=== PATIENT | female | born 1935 | race Native Hawaiian/Other Pacific Islander ===

== ENCOUNTER 2018-06-10 05:46 | Observation (INO) | payer MEDICARE, BC ==
[2015-03-10 08:48] VITALS: BMI 26.0
--- NOTE | 2018-06-10 06:38 | ED PDOC ---
HPI: General Adult Time Seen by Provider: 06/10/18 06:01 Chief Complaint (Nursing): GI Problem Chief Complaint (Provider): GI Problem History Per: Patient History/Exam Limitations: no limitations Onset/Duration Of Symptoms: Days (x 1) Current Symptoms Are (Timing): Still Present Additional Complaint(s): 83 year old female with a history of HTN, arthritis and diverticular disease presents to the ED with bright red blood per rectum that started yesterday. Patient reports that she had three episodes of filling the toilet with bright red blood before midnight and two similar episodes after midnight. During episodes, there is no stool present. Patient denies abdominal pain, rectal pain , nausea, vomiting, fever and chest pain. PMD: Dr. Vishnu Lui Past Medical History Reviewed: Historical Data, Nursing Documentation, Vital Signs Vital Signs: Last Vital Signs Temp 98.2 F 06/10/18 17:00 Pulse 62 06/10/18 21:03 Resp 18 06/10/18 18:44 BP 140/65 06/10/18 21:03 Pulse Ox 96 06/10/18 18:44 - Medical History PMH: CAD, HTN, Mitral Valve Prolapse - Surgical History Surgical History: Cholecystectomy, Coronary Stent - Family History Family History: States: Unknown Family Hx - Home Medications Home Medications: Ambulatory Orders Medication Instructions Recorded Amlodipine Besylate [Norvasc] 5 mg PO DAILY 03/16/15 Paroxetine HCl [Paxil] 20 mg PO DAILY 03/16/15 Allopurinol [Zyloprim] 100 mg PO DAILY 06/10/18 Carvedilol [Coreg] 6.25 mg PO Q12 06/10/18 Cholecalciferol [Vitamin D 1000 IU] 1,000 unit PO DAILY 06/10/18 Isosorbide Mononitrate ER [Imdur 30 mg PO DAILY 06/10/18 ER] Ranitidine HCl [Zantac] 300 mg PO DAILY 06/10/18 - Allergies Allergies/Adverse Reactions: Allergies Allergy/AdvReac Type Severity Reaction Status Date / Time aspirin Allergy ANAPHYLAXIS Verified 06/10/18 06:02 codeine Allergy RASH Verified 06/10/18 06:02 Latex, Natural Rubber Allergy ITCHING Verified 06/10/18 06:02 Sulfa (Sulfonamide Allergy RASH Verified 06/10/18 06:02 Antibiotics) Review of Systems ROS Statement: Except As Marked, All Systems Reviewed And Found Negative Constitutional: Negative for: Fever Cardiovascular: Negative for: Chest Pain Gastrointestinal: Positive for: Hematochezia. Negative for: Nausea, Vomiting, Abdominal Pain, Rectal Pain Physical Exam - Reviewed Nursing Documentation Reviewed: Yes Vital Signs Reviewed: Yes - Physical Exam Appears: Positive for: Non-toxic, No Acute Distress Head Exam: Positive for: ATRAUMATIC, NORMAL INSPECTION, NORMOCEPHALIC Skin: Positive for: Normal Color, Warm, Dry Eye Exam: Positive for: EOMI, Normal appearance, PERRL Neck: Positive for: Normal, Painless ROM, Supple Cardiovascular/Chest: Positive for: Regular Rate, Rhythm. Negative for: Murmur Respiratory: Positive for: Normal Breath Sounds. Negative for: Respiratory Distress Gastrointestinal/Abdominal: Positive for: Normal Exam, Soft. Negative for: Tenderness Extremity: Positive for: Normal ROM. Negative for: Deformity Neurologic/Psych: Positive for: Alert, Oriented (x 3). Negative for: Motor/ Sensory Deficits - Laboratory Results Result Diagrams: 06/10/18 20:40 06/10/18 07:20 - ECG O2 Sat by Pulse Oximetry: 96 (RA) Pulse Ox Interpretation: Normal Medical Decision Making Medical Decision Makin:10 Impression: 83 year old [place] female with bright red blood per rectal Initial Plan: --Labs --EKG --Ct Abd and Pelvis ---- Scribe Attestation: Documented by Nikia Doty, acting as a scribe for Christopher Hernandez MD Provider Scribe Attestation: All medical record entries made by the Scribe were at my direction and personally dictated by me. I have reviewed the chart and agree that the record accurately reflects my personal performance of the history, physical exam, medical decision making, and the department course for this patient. I have also personally directed, reviewed, and agree with the discharge instructions and disposition. Disposition - Clinical Impression Clinical Impression: Hematochezia - Patient ED Disposition Is Patient to be Admitted: Transfer of Care - Disposition Disposition: Transfer of Care Disposition Time: 07:00 Condition: FAIR Patient Signed Over To: Uriel Wagner (pending CT, labs and reeval)
--- NOTE | 2018-06-10 07:22 | ED PDOC ---
- Laboratory Results Result Diagrams: 06/10/18 07:20 06/10/18 07:20 - ECG O2 Sat by Pulse Oximetry: 96 (RA) Pulse Ox Interpretation: Normal Medical Decision Making Medical Decision Making: Patient signed over to provider at [address] Hernandez pending CT, labs and reeval. -------- Documented by Rima Melendez acting as a scribe for Uriel Wganer MD. All medical record entries made by the Scribe were at my direction and personally dictated by me. I have reviewed the chart and agree that the record accurately reflects my personal performance of the history, physical exam, medical decision making, and the department course for this patient. I have also personally directed, reviewed, and agree with the discharge instructions and disposition. Disposition - Clinical Impression Clinical Impression: Diverticulitis - POA Present On Arrival: None - Disposition Disposition: Hospitalized as Observation Patient Disposition Time: 11:28 Condition: FAIR Additional Instructions: ALFONSO NAVA, thank you for letting us take care of you today. Your provider was Christopher Hernandez MD and you were treated for BLOOD IN URINE. The emergency medical care you received today was directed at your acute symptoms. If you were prescribed any medication, please fill it and take as directed. It may take several days for your symptoms to resolve. Return to the Emergency Department if your symptoms worsen, do not improve, or if you have any other problems. Please contact your doctor or call one of the physicians/clinics you have been referred to that are listed on the Patient Visit Information form that is included in your discharge packet. Bring any paperwork you were given at discharge with you along with any medications you are taking to your follow up visit. Our treatment cannot replace ongoing medical care by a primary care provider outside of the emergency department. Thank you for allowing the [facility] team to be part of your care today. If you had an X-Ray or CT scan: A Radiologist will review the ED reading if any change in treatment is needed we will contact you. If you had a blood, urine, or wound culture: It will take several days for the results, if any change in treatment is needed we will contact you. If you had an STI test: It will take 48 hours for the results. Please call after 1 week if you have not heard back. Forms: [facility] ([place])
[2018-06-10 07:42] LABS: BASO # 0.1 K/uL (0.0-0.2); BASO % 0.9 % (0.0-2.0); EOS # 0.2 K/uL (0.0-0.7); HEMOGLOBIN 11.3 g/dL (12.0-16.0); LYMPH # 1.4 K/uL (1.0-4.3); LYMPH % 18.6 % (20.0-40.0); MEAN CORPUSCULAR HEMOGLOBIN 31.7 pg (27.0-31.0); MEAN CORPUSCULAR HGB CONC 32.7 g/dL (33.0-37.0); MEAN PLATELET VOLUME 8.1 fl (7.2-11.7); MONO # 0.7 K/uL (0.0-0.8); MONO % 9.6 % (0.0-10.0); NEUT # 5.3 K/uL (1.8-7.0); NEUT % 68.9 % (50.0-75.0); RBC 3.56 Mil/uL (3.80-5.20); RED CELL DISTRIBUTION WIDTH 14.9 % (11.5-14.5); WHITE BLOOD COUNT 7.6 K/uL (4.8-10.8)
[2018-06-10 07:55] LABS: GFR AFRICAN-AMERICAN 47; GFR NON-AFRICAN AMERICAN 39; LIPASE 246 U/L (23-300)
[2018-06-10 07:56] LABS: ALB/GLOB RATIO 0.6 (1.0-2.1); ALT/SGPT < 6 U/L (9-52); AST/SGOT 45 U/L (14-36); BLOOD UREA NITROGEN 22 mg/dl (7-17)
[2018-06-10 08:12] LABS: INR 1.2 (0.9-1.2); PARTIAL THROMBOPLASTIN TIME 34.3 Seconds (25.6-37.1); PROTHROMBIN TIME 13.7 Seconds (9.8-13.1)
--- NOTE | 2018-06-10 11:02 | CT ---
Date of service: 06/10/2018 PROCEDURE: CT Abdomen and Pelvis without intravenous contrast HISTORY: [facility] COMPARISON: Abdomen and pelvis CT with contrast 09/01/2014. TECHNIQUE: Helical CT of the abdomen and pelvis was performed without oral or intravenous contrast as per referring physician request. Contrast dose: None Radiation dose: Total exam DLP = 496.05 mGy-cm. This CT exam was performed using one or more of the following dose reduction techniques: Automated exposure control, adjustment of the mA and/or kV according to patient size, and/or use of iterative reconstruction technique. FINDINGS: LOWER THORAX: Stable tiny left basilar Bochdalek's hernia containing only mesenteric fat. Limited linear atelectasis and appear atelectasis seen in both bases once again. LIVER: Tiny hepatic lucency again seen the lateral left lobe with remainder the liver homogeneous in its unenhanced appearance. GALLBLADDER AND BILE DUCTS: Cholecystectomy reiterated. PANCREAS: Mildly atrophic nonfocal pancreas reiterated. SPLEEN: Unremarkable. ADRENALS: Unremarkable. No mass. KIDNEYS AND URETERS: No radiodense urolithiasis, obstructive uropathy or perinephric reaction is appreciated bilaterally. Apparent right renal cyst is increased in size at the upper midpole anteriorly, now measuring 4.9 x 4.3 cm compare to 4.0 cm previously. Lower pole left renal lucency not well identified on this noncontrast examination. Nonspecific punctate loop lucency is seen at the left upper pole renal cortex and also the cortex at the lower pole in 2 areas, nonspecific. VASCULATURE: Unremarkable. No aortic aneurysm. BOWEL: Stomach is completely collapsed and is poorly evaluated as result. Moderate fecal loading seen at the ascending colon. Left colonic diverticulosis is appreciated concentrated at the sigmoid segment. Pericolic reactive changes again at the mid descending segment extending to be more prominent at the distal descending/ proximal sigmoid region. Given associated diverticular changes, pattern likely reflects diverticulitis. To exclude underlying lesion, follow-up colonoscopy is recommended following therapy. No abscess or free air appreciable grossly. APPENDIX: The cecum and appendix are relatively high at the right anil abdomen. No appendicitis identified. PERITONEUM: Unremarkable. No free fluid. No free air. LYMPH NODES: Unremarkable. No enlarged lymph nodes. BLADDER: Unremarkable. REPRODUCTIVE: Prior hysterectomy. BONES: Old healed fracture inferior right pubic ramus. OTHER FINDINGS: None. IMPRESSION: 1. Diverticulitis affects the mid to distal descending as well as proximal sigmoid: Without abscess or free intrarenal gas or other sign of mural perforation. Underlying lesion not excluded follow-up colonoscopy advised following therapy. 2. No obstructive uropathy bilaterally. Right renal cyst increased in size per left renal cyst less well appreciated. A few cortical radiodensities are seen at the upper and lower pole left kidney, nonspecific. 3. Prior cholecystectomy and hysterectomy reiterated.
[2018-06-10 11:21] LABS: SQUAMOUS EPITHIAL < 1 /hpf (0-5); URINE BACTERIA RARE (<OCC); URINE BILIRUBIN NEGATIVE (NEGATIVE); URINE BLOOD SMALL (NEGATIVE); URINE CLARITY CLEAR (Clear); URINE COLOR STRAW (YELLOW); URINE GLUCOSE (UA) NEG (Normal); URINE LEUKOCYTE ESTERASE NEG Leu/uL (Negative); URINE PROTEIN NEGATIVE (NEGATIVE); URINE UROBILINOGEN 0.2-1.0 mg/dL (0.2-1.0)
[2018-06-10] MEDS ORDERED: Ciprofloxacin 400mg/200ml D5W 400 MG/200 ML BAG IVPB STA (11:25)
[2018-06-10] MEDS ORDERED: metroNIDAZOLE 500mg/100ml NS 1,000 MG in Premixed IV 1 EA IVPB SCH (11:30)
--- NOTE | 2018-06-10 11:32 | CP.PCM.HP ---
<Tonya Latif - Last Filed: 06/10/18 17:22> History of Present Illness - History of Present Illness History of Present Illness: HPI: 83 YO female with PMHx of HTN, GERD, IBS and diverticulosis presents to [facility] ED for bleeding per rectum. Pt states that her symptoms started suddenly yesterday and has worsened since onset. Pt states that she feels the urge to go to the bathroom and only bright blood comes out, there is no stool only blood in the bowl. Had a total of 3-4x episode before pt came to the ED. First time this has ever happened to the patient. Denies chest pain, dyspnea, dizziness, fatigue, n/v. Per Pt last endoscopy was in 2008 and Colonoscopy was 2014 was normal per pt PMD: Dr. Lui PMHx: HTN, GERD, IBS and diverticulosis SurgHx: thyroidectomy, total hysterextomy, lumpectomy (breast), arthoscopy (R knee), cholesectomy Allergies: asa, codeine, latex, sulfa Present on Admission - Present on Admission Any Indicators Present on Admission: No Review of Systems - Constitutional Constitutional: absent: Fever, Headache - Cardiovascular Cardiovascular: absent: Chest Pain, Dyspnea, Palpitations - Respiratory Respiratory: absent: Cough, Dyspnea - Gastrointestinal Gastrointestinal: Melena. absent: Abdominal Pain, Vomiting - Genitourinary Genitourinary: absent: Dysuria, Hematuria Past Patient History - Past Medical History & Family History Past Medical History?: Yes - Past Social History Smoking Status: Current Some Days Smoker - CARDIAC Hx Hypertension: Yes Hx Mitral Valve Prolapse: Yes - HEMATOLOGICAL/ONCOLOGICAL Hx Blood Disorders: Yes Hx Cancer: Yes (LEFT LUMPECTOMY) - MUSCULOSKELETAL/RHEUMATOLOGICAL Hx Musculoskeletal Disorders: Yes (right knee pain) Other/Comment: PELVIC FRACTURE - GASTROINTESTINAL Hx Gastrointestinal Disorders: Yes Hx Gastroesophageal Reflux: Yes Hx Irritable Bowel: Yes - PSYCHIATRIC Hx Substance Use: No - SURGICAL HISTORY Hx Cholecystectomy: Yes Hx Coronary Stent: Yes - ANESTHESIA Hx Anesthesia: Yes Hx Anesthesia Reactions: No Meds Allergies/Adverse Reactions: Allergies Allergy/AdvReac Type Severity Reaction Status Date / Time aspirin Allergy ANAPHYLAXIS Verified 06/10/18 06:02 codeine Allergy RASH Verified 06/10/18 06:02 Latex, Natural Rubber Allergy ITCHING Verified 06/10/18 06:02 Sulfa (Sulfonamide Allergy RASH Verified 06/10/18 06:02 Antibiotics) Physical Exam - Constitutional Appears: No Acute Distress - Head Exam Head Exam: NORMAL INSPECTION - Eye Exam Eye Exam: EOMI, Normal appearance - ENT Exam ENT Exam: Mucous Membranes Moist - Respiratory Exam Respiratory Exam: Clear to Auscultation Bilateral. absent: Wheezes - Cardiovascular Exam Cardiovascular Exam: REGULAR RHYTHM, +S1, +S2 - GI/Abdominal Exam GI & Abdominal Exam: Normal Bowel Sounds, Soft. absent: Tenderness - Extremities Exam Extremities exam: Positive for: normal inspection - Neurological Exam Neurological exam: Alert, Oriented x3 - Skin Skin Exam: Normal Color Results - Vital Signs Recent Vital Signs: Last Vital Signs Temp 98.6 F 06/10/18 06:02 Pulse 60 06/10/18 06:02 Resp 16 06/10/18 06:02 BP 153/73 H 06/10/18 06:02 Pulse Ox 96 06/10/18 11:28 - Labs Result Diagrams: 06/10/18 07:20 06/10/18 07:20 Labs: Laboratory Results - last 24 hr 06/10/18 06/10/18 06/10/18 06:27 07:20 07:20 WBC 7.6 RBC 3.56 L Hgb 11.3 L Hct 34.5 MCV 97.0 MCH 31.7 H MCHC 32.7 L RDW 14.9 H Plt Count 204 MPV 8.1 Neut % (Auto) 68.9 Lymph % (Auto) 18.6 L [place] % (Auto) 9.6 Eos % (Auto) 2.0 Baso % (Auto) 0.9 Neut # (Auto) 5.3 Lymph # (Auto) 1.4 [place] # (Auto) 0.7 Eos # (Auto) 0.2 Baso # (Auto) 0.1 PT INR APTT Sodium 137 Potassium 4.8 Chloride 103 Carbon Dioxide 21 L Anion Gap 18 BUN 22 H Creatinine 1.3 H Est GFR ( Amer) 47 Est GFR (Non-Af Amer) 39 Random Glucose 84 Calcium 10.0 Total Bilirubin 1.1 AST 45 H ALT < 6 L D Alkaline Phosphatase 59 Total Protein 10.4 H Albumin 4.0 Globulin 6.4 H Albumin/Globulin Ratio 0.6 L Lipase 246 Urine Color Urine Clarity Urine pH Ur Specific [place] Urine Protein Urine Glucose (UA) Urine Ketones Urine Blood Urine Nitrate Urine Bilirubin Urine Urobilinogen Ur Leukocyte Esterase Urine RBC (Auto) Urine Microscopic WBC Ur Squamous Epith Cells Urine Bacteria Blood Type B POSITIVE Antibody Screen Negative BBK History Checked No verified bt 06/10/18 06/10/18 07:20 11:05 WBC RBC Hgb Hct MCV MCH MCHC RDW Plt Count MPV Neut % (Auto) Lymph % (Auto) [place] % (Auto) Eos % (Auto) Baso % (Auto) Neut # (Auto) Lymph # (Auto) [place] # (Auto) Eos # (Auto) Baso # (Auto) PT 13.7 H INR 1.2 APTT 34.3 Sodium Potassium Chloride Carbon Dioxide Anion Gap BUN Creatinine Est GFR ( Amer) Est GFR (Non-Af Amer) Random Glucose Calcium Total Bilirubin AST ALT Alkaline Phosphatase Total Protein Albumin Globulin Albumin/Globulin Ratio Lipase Urine Color Straw Urine Clarity Clear Urine pH 6.0 Ur Specific [place] 1.008 Urine Protein Negative Urine Glucose (UA) Neg Urine Ketones Negative Urine Blood Small Urine Nitrate Negative Urine Bilirubin Negative Urine Urobilinogen 0.2-1.0 Ur Leukocyte Esterase Neg Urine RBC (Auto) 1 Urine Microscopic WBC 1 Ur Squamous Epith Cells < 1 Urine Bacteria Rare Blood Type Antibody Screen BBK History Checked Assessment & Plan (1) HTN (hypertension) Status: Chronic (2) GERD (gastroesophageal reflux disease) Status: Chronic (3) Diverticulitis Status: Acute (4) IBS (irritable bowel syndrome) Status: Chronic - Assessment and Plan (Free Text) Assessment: Assessment/Plan: 83 YO female with PMHx of HTN, GERD, IBS and diverticulosis is admitted for acute diverticulitis. -VS stable -labs reviewed -GI consulted -NPO, with IVF -PPI and H2 galindo on board -CT abd and pel sig for diverticulitis mid-distal descending as well as proximal sigmoid> no obstructive uropathy. -acute bleeding per rectum likely 2/2 diverticulitis -continue abx -Plan as ordered Pt seen and examined with Dr. Lui <Vishnu Lui - Last Filed: 06/11/18 06:49> Results - Vital Signs Recent Vital Signs: Last Vital Signs Temp 98.5 F 06/11/18 00:00 Pulse 56 L 06/11/18 00:00 Resp 20 06/11/18 00:00 BP 116/61 06/11/18 00:00 Pulse Ox 94 L 06/11/18 00:00 - Labs Result Diagrams: 06/10/18 20:40 06/10/18 07:20 Labs: Laboratory Results - last 24 hr 06/10/18 06/10/18 06/10/18 06:27 07:20 07:20 WBC 7.6 RBC 3.56 L Hgb 11.3 L Hct 34.5 MCV 97.0 MCH 31.7 H MCHC 32.7 L RDW 14.9 H Plt Count 204 MPV 8.1 Neut % (Auto) 68.9 Lymph % (Auto) 18.6 L [place] % (Auto) 9.6 Eos % (Auto) 2.0 Baso % (Auto) 0.9 Neut # (Auto) 5.3 Lymph # (Auto) 1.4 [place] # (Auto) 0.7 Eos # (Auto) 0.2 Baso # (Auto) 0.1 PT INR APTT Sodium 137 Potassium 4.8 Chloride 103 Carbon Dioxide 21 L Anion Gap 18 BUN 22 H Creatinine 1.3 H Est GFR ( Amer) 47 Est GFR (Non-Af Amer) 39 Random Glucose 84 Calcium 10.0 Total Bilirubin 1.1 AST 45 H ALT < 6 L D Alkaline Phosphatase 59 Total Protein 10.4 H Albumin 4.0 Globulin 6.4 H Albumin/Globulin Ratio 0.6 L Lipase 246 Urine Color Urine Clarity Urine pH Ur Specific [place] Urine Protein Urine Glucose (UA) Urine Ketones Urine Blood Urine Nitrate Urine Bilirubin Urine Urobilinogen Ur Leukocyte Esterase Urine RBC (Auto) Urine Microscopic WBC Ur Squamous Epith Cells Urine Bacteria Blood Type B POSITIVE Blood Type Confirm Antibody Screen Negative BBK History Checked No verified bt 06/10/18 06/10/18 06/10/18 07:20 11:05 19:00 WBC RBC Hgb Hct MCV MCH MCHC RDW Plt Count MPV Neut % (Auto) Lymph % (Auto) [place] % (Auto) Eos % (Auto) Baso % (Auto) Neut # (Auto) Lymph # (Auto) [place] # (Auto) Eos # (Auto) Baso # (Auto) PT 13.7 H INR 1.2 APTT 34.3 Sodium Potassium Chloride Carbon Dioxide Anion Gap BUN Creatinine Est GFR ( Amer) Est GFR (Non-Af Amer) Random Glucose Calcium Total Bilirubin AST ALT Alkaline Phosphatase Total Protein Albumin Globulin Albumin/Globulin Ratio Lipase Urine Color Straw Urine Clarity Clear Urine pH 6.0 Ur Specific [place] 1.008 Urine Protein Negative Urine Glucose (UA) Neg Urine Ketones Negative Urine Blood Small Urine Nitrate Negative Urine Bilirubin Negative Urine Urobilinogen 0.2-1.0 Ur Leukocyte Esterase Neg Urine RBC (Auto) 1 Urine Microscopic WBC 1 Ur Squamous Epith Cells < 1 Urine Bacteria Rare Blood Type Blood Type Confirm B POSITIVE Antibody Screen BBK History Checked 06/10/18 20:40 WBC 8.8 RBC 3.63 L Hgb 11.8 L Hct 35.3 MCV 97.3 MCH 32.4 H MCHC 33.3 RDW 14.8 H Plt Count 195 MPV Neut % (Auto) Lymph % (Auto) [place] % (Auto) Eos % (Auto) Baso % (Auto) Neut # (Auto) Lymph # (Auto) [place] # (Auto) Eos # (Auto) Baso # (Auto) PT INR APTT Sodium Potassium Chloride Carbon Dioxide Anion Gap BUN Creatinine Est GFR ( Amer) Est GFR (Non-Af Amer) Random Glucose Calcium Total Bilirubin AST ALT Alkaline Phosphatase Total Protein Albumin Globulin Albumin/Globulin Ratio Lipase Urine Color Urine Clarity Urine pH Ur Specific [place] Urine Protein Urine Glucose (UA) Urine Ketones Urine Blood Urine Nitrate Urine Bilirubin Urine Urobilinogen Ur Leukocyte Esterase Urine RBC (Auto) Urine Microscopic WBC Ur Squamous Epith Cells Urine Bacteria Blood Type Blood Type Confirm Antibody Screen BBK History Checked Assessment & Plan - Assessment and Plan (Free Text) Plan: I was present during evaluation and discussed with Dr Latif re plans of care and tx. Vishnu Lui M.D.
[2018-06-10] MEDS ORDERED: Ciprofloxacin 400mg/200ml D5W 400 MG/200 ML BAG IVPB ONE (11:51)
[2018-06-10] MEDS: Sodium Chloride 0.9% 1,000 ML IV SCH ×2 (11:54→22:00)
--- NOTE | 2018-06-10 12:28 | CARD ---
APPROVED REPORT Date of service: 06/10/2018 EKG Measurement Heart [id number] <Conclusion> Sinus bradycardia with sinus arrhythmia with 1st degree AV block Voltage criteria for left ventricular hypertrophy Abnormal ECG
--- NOTE | 2018-06-10 14:01 | CP.PCM.CON ---
<Lloyd Carvajal - Last Filed: 06/10/18 14:02> History of Present Illness - History of Present Illness History of Present Illness: PGY5 GI Initial Consult Fernanda Velásquez is a 83F w/ hx of diverticulosis, HTN, HL, CAD who presents to the Er with complaints of rectal bleeding. Pt states that the onset was 1 days prior. She notes that it was bright red blood, denies any blood clots. She notes that initially it was mixed with stool then without. Denies any melena. She also notes LLQ abd pain. She notes that it was sudden and nonradiating. Denies any fever, chills or diaphorsis. She denies any further episodes of rectal bleeding since admission. Denies any recent travel and abx use. Previous had colonoscopy in 2011 and EGD in 2008. She notes previous diagnosis of diverticulosis and IBS. PMHx: HTN, GERD, IBS and diverticulosis SurgHx: thyroidectomy, total hysterextomy, lumpectomy (breast), arthoscopy (R knee), cholesectomy Family hx: reviewed; niece possibly has colon cancer, but denies any other GI malignancies ROS: 12 point ROS conducted, neg other than above Past Patient History - Past Medical History & Family History Past Medical History?: Yes - Past Social History Smoking Status: Current Some Days Smoker - CARDIAC Hx Hypertension: Yes Hx Mitral Valve Prolapse: Yes - HEMATOLOGICAL/ONCOLOGICAL Hx Blood Disorders: Yes Hx Cancer: Yes (LEFT LUMPECTOMY) - MUSCULOSKELETAL/RHEUMATOLOGICAL Hx Musculoskeletal Disorders: Yes (right knee pain) Other/Comment: PELVIC FRACTURE - GASTROINTESTINAL Hx Gastrointestinal Disorders: Yes Hx Gastroesophageal Reflux: Yes Hx Irritable Bowel: Yes - PSYCHIATRIC Hx Substance Use: No - SURGICAL HISTORY Hx Cholecystectomy: Yes Hx Coronary Stent: Yes - ANESTHESIA Hx Anesthesia: Yes Hx Anesthesia Reactions: No Meds Allergies/Adverse Reactions: Allergies Allergy/AdvReac Type Severity Reaction Status Date / Time aspirin Allergy ANAPHYLAXIS Verified 06/10/18 06:02 codeine Allergy RASH Verified 06/10/18 06:02 Latex, Natural Rubber Allergy ITCHING Verified 06/10/18 06:02 Sulfa (Sulfonamide Allergy RASH Verified 06/10/18 06:02 Antibiotics) - Medications Medications: Current Medications Acetaminophen (Tylenol 325mg Tab) 650 mg PO Q6 PRN PRN Reason: Pain, Mild (1-3) Allopurinol (Zyloprim) 100 mg PO DAILY [facility] Amlodipine Besylate (Norvasc) 5 mg PO DAILY [facility] Carvedilol (Coreg) 6.25 mg PO Q12 [facility] Cholecalciferol (Vitamin D) 1,000 intlu PO DAILY [facility] Metronidazole 1,000 mg/ (Miscellaneous) 200 mls @ 200 mls/hr IVPB ONCE [facility] PRN Reason: Protocol Sodium Chloride (Sodium Chloride 0.9%) 1,000 mls @ 100 mls/hr IV .Q10H [facility] Last Admin: 06/10/18 11:54 Dose: 100 mls/hr Ciprofloxacin (Cipro 400mg/200ml Dsw) 400 mg in 200 mls @ 200 mls/hr IVPB Q12 [facility] PRN Reason: Protocol Isosorbide Mononitrate (Imdur Er) 30 mg PO DAILY [facility] Ondansetron HCl (Zofran Inj) 4 mg IVP Q6 PRN PRN Reason: Nausea/Vomiting Pantoprazole Sodium (Protonix Inj) 40 mg IVP DAILY [facility] Paroxetine HCl (Paxil) 20 mg PO DAILY [facility] Physical Exam - Constitutional Appears: Well, No Acute Distress - Head Exam Head Exam: ATRAUMATIC, NORMOCEPHALIC - Eye Exam Eye Exam: Normal appearance Pupil Exam: NORMAL ACCOMODATION - ENT Exam ENT Exam: Mucous Membranes Moist, Normal Exam - Neck Exam Neck exam: Positive for: Normal Inspection - Respiratory Exam Respiratory Exam: Clear to Auscultation Bilateral, NORMAL BREATHING PATTERN. absent: Rales, Rhonchi, Wheezes, Respiratory Distress - Cardiovascular Exam Cardiovascular Exam: REGULAR RHYTHM, +S1, +S2 - GI/Abdominal Exam GI & Abdominal Exam: Normal Bowel Sounds, Soft, Tenderness (LLQ). absent: Diminished Bowel Sounds, Distended, Firm, Guarding, Organomegaly, Rebound, Rigid - Rectal Exam Rectal Exam: absent: Black Stool, Bloody Stool, Hemorrhoids - Extremities Exam Extremities exam: Negative for: joint swelling, pedal edema - Neurological Exam Neurological exam: Alert, Oriented x3 - Psychiatric Exam Psychiatric exam: Normal Affect, Normal Mood - Skin Skin Exam: Cyanosis, Dry, Intact, Normal Color Results - Vital Signs Recent Vital Signs: Last Vital Signs Temp 98.8 F 06/10/18 11:48 Pulse 55 L 06/10/18 11:48 Resp 20 06/10/18 11:48 BP 137/63 06/10/18 11:48 Pulse Ox 96 06/10/18 11:48 - Labs Result Diagrams: 06/10/18 07:20 06/10/18 07:20 Labs: Laboratory Results - last 24 hr 06/10/18 06/10/18 06/10/18 06:27 07:20 07:20 WBC 7.6 RBC 3.56 L Hgb 11.3 L Hct 34.5 MCV 97.0 MCH 31.7 H MCHC 32.7 L RDW 14.9 H Plt Count 204 MPV 8.1 Neut % (Auto) 68.9 Lymph % (Auto) 18.6 L [place] % (Auto) 9.6 Eos % (Auto) 2.0 Baso % (Auto) 0.9 Neut # (Auto) 5.3 Lymph # (Auto) 1.4 [place] # (Auto) 0.7 Eos # (Auto) 0.2 Baso # (Auto) 0.1 PT INR APTT Sodium 137 Potassium 4.8 Chloride 103 Carbon Dioxide 21 L Anion Gap 18 BUN 22 H Creatinine 1.3 H Est GFR ( Amer) 47 Est GFR (Non-Af Amer) 39 Random Glucose 84 Calcium 10.0 Total Bilirubin 1.1 AST 45 H ALT < 6 L D Alkaline Phosphatase 59 Total Protein 10.4 H Albumin 4.0 Globulin 6.4 H Albumin/Globulin Ratio 0.6 L Lipase 246 Urine Color Urine Clarity Urine pH Ur Specific [place] Urine Protein Urine Glucose (UA) Urine Ketones Urine Blood Urine Nitrate Urine Bilirubin Urine Urobilinogen Ur Leukocyte Esterase Urine RBC (Auto) Urine Microscopic WBC Ur Squamous Epith Cells Urine Bacteria Blood Type B POSITIVE Antibody Screen Negative BBK History Checked No verified bt 06/10/18 06/10/18 07:20 11:05 WBC RBC Hgb Hct MCV MCH MCHC RDW Plt Count MPV Neut % (Auto) Lymph % (Auto) [place] % (Auto) Eos % (Auto) Baso % (Auto) Neut # (Auto) Lymph # (Auto) [place] # (Auto) Eos # (Auto) Baso # (Auto) PT 13.7 H INR 1.2 APTT 34.3 Sodium Potassium Chloride Carbon Dioxide Anion Gap BUN Creatinine Est GFR ( Amer) Est GFR (Non-Af Amer) Random Glucose Calcium Total Bilirubin AST ALT Alkaline Phosphatase Total Protein Albumin Globulin Albumin/Globulin Ratio Lipase Urine Color Straw Urine Clarity Clear Urine pH 6.0 Ur Specific [place] 1.008 Urine Protein Negative Urine Glucose (UA) Neg Urine Ketones Negative Urine Blood Small Urine Nitrate Negative Urine Bilirubin Negative Urine Urobilinogen 0.2-1.0 Ur Leukocyte Esterase Neg Urine RBC (Auto) 1 Urine Microscopic WBC 1 Ur Squamous Epith Cells < 1 Urine Bacteria Rare Blood Type Antibody Screen BBK History Checked Assessment & Plan - Assessment and Plan (Free Text) Assessment: Fernanda Velásquez is a 83F w/ hx of diverticulosis, CAD, HTN. IBS. HL who presents with rectal bleeding and abd pain Rectal bleeding, etiology unknown; likely diverticular; r/o malignancy or AVM or ischemic vs IBD Diverticulitis hx of divertivular disease IBS Plan: -Reviewed by Dr. Knight; CT Revealed diverticular disease and active diverticulitis in the sigmoid -h/h stable -repeat hgb at 2100 -transfuse to keep hgb >9 -maintain IV access x2 -type and screen -okay for clears -no indication for colonoscopy at this time 2/[address], increase chance of perforation -recommend CTA is pt rebleeds -likely need oupt colonoscopy in 2 months -rest of care as per primary team D/w Dr. Knight. <Ryley Knight - Last Filed: 06/11/18 10:28> Meds - Medications Medications: Current Medications Acetaminophen (Tylenol 325mg Tab) 650 mg PO Q6 PRN PRN Reason: Pain, Mild (1-3) Allopurinol (Zyloprim) 100 mg PO DAILY [facility] Last Admin: 06/11/18 08:35 Dose: 100 mg Amlodipine Besylate (Norvasc) 5 mg PO DAILY [facility] Last Admin: 06/11/18 08:34 Dose: 5 mg Carvedilol (Coreg) 6.25 mg PO Q12 [facility] Last Admin: 06/11/18 08:34 Dose: 6.25 mg Cholecalciferol (Vitamin D) 1,000 intlu PO DAILY [facility] Last Admin: 06/11/18 08:35 Dose: 1,000 intlu Metronidazole 1,000 mg/ (Miscellaneous) 200 mls @ 200 mls/hr IVPB ONCE [facility] PRN Reason: Protocol Sodium Chloride (Sodium Chloride 0.9%) 1,000 mls @ 100 mls/hr IV .Q10H [facility] Last Admin: 06/11/18 08:38 Dose: 100 mls/hr Ciprofloxacin (Cipro 400mg/200ml Dsw) 400 mg in 200 mls @ 200 mls/hr IVPB Q12 [facility] PRN Reason: Protocol Last Admin: 06/11/18 08:34 Dose: 200 mls/hr Metronidazole (Flagyl 500mg/100ml Ns) 100 mls @ 100 mls/hr IVPB Q8 [facility] PRN Reason: Protocol Isosorbide Mononitrate (Imdur Er) 30 mg PO DAILY [facility] Last Admin: 06/11/18 08:34 Dose: 30 mg Ondansetron HCl (Zofran Inj) 4 mg IVP Q6 PRN PRN Reason: Nausea/Vomiting Pantoprazole Sodium (Protonix Inj) 40 mg IVP DAILY [facility] Last Admin: 06/11/18 08:35 Dose: 40 mg Paroxetine HCl (Paxil) 20 mg PO DAILY [facility] Last Admin: 06/11/18 08:35 Dose: 20 mg Results - Vital Signs Recent Vital Signs: Last Vital Signs Temp 97.8 F 06/11/18 08:30 Pulse 51 L 06/11/18 08:30 Resp 20 06/11/18 08:30 BP 137/67 06/11/18 08:30 Pulse Ox 93 L 06/11/18 08:30 - Labs Result Diagrams: 06/11/18 05:30 06/11/18 05:30 Labs: Laboratory Results - last 24 hr 06/10/18 06/10/18 06/10/18 11:05 19:00 20:40 WBC 8.8 RBC 3.63 L Hgb 11.8 L Hct 35.3 MCV 97.3 MCH 32.4 H MCHC 33.3 RDW 14.8 H Plt Count 195 MPV Neut % (Auto) Lymph % (Auto) [place] % (Auto) Eos % (Auto) Baso % (Auto) Neut # (Auto) Lymph # (Auto) [place] # (Auto) Eos # (Auto) Baso # (Auto) Sodium Potassium Chloride Carbon Dioxide Anion Gap BUN Creatinine Est GFR ( Amer) Est GFR (Non-Af Amer) Random Glucose Calcium Urine Color Straw Urine Clarity Clear Urine pH 6.0 Ur Specific [place] 1.008 Urine Protein Negative Urine Glucose (UA) Neg Urine Ketones Negative Urine Blood Small Urine Nitrate Negative Urine Bilirubin Negative Urine Urobilinogen 0.2-1.0 Ur Leukocyte Esterase Neg Urine RBC (Auto) 1 Urine Microscopic WBC 1 Ur Squamous Epith Cells < 1 Urine Bacteria Rare Blood Type Confirm B POSITIVE 06/11/18 06/11/18 05:30 05:30 WBC 9.6 RBC 3.51 L Hgb 11.5 L Hct 34.2 MCV 97.4 MCH 32.8 H MCHC 33.6 RDW 14.6 H Plt Count 181 MPV 8.0 Neut % (Auto) 70.4 Lymph % (Auto) 15.9 L [place] % (Auto) 11.0 H Eos % (Auto) 2.1 Baso % (Auto) 0.6 Neut # (Auto) 6.7 Lymph # (Auto) 1.5 [place] # (Auto) 1.1 H Eos # (Auto) 0.2 Baso # (Auto) 0.1 Sodium 139 Potassium 4.1 Chloride 106 Carbon Dioxide 20 L Anion Gap 17 BUN 15 Creatinine 1.2 Est GFR ( Amer) 52 Est GFR (Non-Af Amer) 43 Random Glucose 89 Calcium 9.3 Urine Color Urine Clarity Urine pH Ur Specific [place] Urine Protein Urine Glucose (UA) Urine Ketones Urine Blood Urine Nitrate Urine Bilirubin Urine Urobilinogen Ur Leukocyte Esterase Urine RBC (Auto) Urine Microscopic WBC Ur Squamous Epith Cells Urine Bacteria Blood Type Confirm Attending/Attestation - Attestation I have personally seen and examined this patient.: Yes I have fully participated in the care of the patient.: Yes I have reviewed all pertinent clinical information: Yes Notes (Text): 06/11/18 10:24 Late entry- This is a 83 yr old F w/ hx of diverticulosis, CAD, HTN, IBS, HL who presents with rectal bleeding and abdominal pain with cramps. She was seen in ER last evening with son at the bedside. No fever or diarrhea. She had colonosocpy in 2016 that showed diverticular disease. Her CT imaging reviewed and showed diverticulitis on left side. On physical exam she was tender to deep palpation. She did not have any blood on rectal exam and had brown stool. No guarding or rigidity present. Likely diverticulitis which is acute. Will treat with antibiotics and plan on outpatient colonoscopy in 4-6 weeks. Supportive care. Clear liquid diet as tolerated.
[2018-06-10 20:59] LABS: HEMOGLOBIN 11.8 g/dL (12.0-16.0); MEAN CELL VOLUME 97.3 fl (81.0-99.0); MEAN CORPUSCULAR HEMOGLOBIN 32.4 pg (27.0-31.0); MEAN CORPUSCULAR HGB CONC 33.3 g/dL (33.0-37.0); RBC 3.63 Mil/uL (3.80-5.20); RED CELL DISTRIBUTION WIDTH 14.8 % (11.5-14.5); WHITE BLOOD COUNT 8.8 K/uL (4.8-10.8)
[2018-06-10] MEDS: Ciprofloxacin 400mg/200ml D5W 400 MG/200 ML BAG IVPB SCH (21:04)
[2018-06-11 06:47] LABS: BASO # 0.1 K/uL (0.0-0.2); BASO % 0.6 % (0.0-2.0); EOS # 0.2 K/uL (0.0-0.7); EOS % 2.1 % (0.0-4.0); HEMOGLOBIN 11.5 g/dL (12.0-16.0); LYMPH # 1.5 K/uL (1.0-4.3); LYMPH % 15.9 % (20.0-40.0); MEAN CELL VOLUME 97.4 fl (81.0-99.0); MEAN CORPUSCULAR HEMOGLOBIN 32.8 pg (27.0-31.0); MEAN CORPUSCULAR HGB CONC 33.6 g/dL (33.0-37.0); MONO # 1.1 K/uL (0.0-0.8); NEUT # 6.7 K/uL (1.8-7.0); NEUT % 70.4 % (50.0-75.0); RBC 3.51 Mil/uL (3.80-5.20); RED CELL DISTRIBUTION WIDTH 14.6 % (11.5-14.5); WHITE BLOOD COUNT 9.6 K/uL (4.8-10.8)
[2018-06-11 07:15] LABS: CALCIUM 9.3 mg/dL (8.4-10.2)
[2018-06-11] MEDS: Ciprofloxacin 400mg/200ml D5W 400 MG/200 ML BAG IVPB SCH ×2 (08:34→21:27)
[2018-06-11] MEDS: Cholecalciferol 1,000 INTLU TAB PO SCH (08:35)
[2018-06-11] MEDS: Sodium Chloride 0.9% 1,000 ML IV SCH ×2 (08:38→16:54)
--- NOTE | 2018-06-11 10:33 | CP.PCM.PN ---
Subjective - Date & Time of Evaluation Date of Evaluation: 06/11/18 Time of Evaluation: 11:13 - Subjective Subjective: No acute overnight events. Pt states that she is feeling better this AM. Bleeding has significantly improved since admission. Normal BM this AM. Tolerating liquids, endorsing minimal abdominal discomfort. Denies chest pain, dyspnea, palpations, chills and remains afebrile. Objective - Vital Signs/Intake and Output Vital Signs (last 24 hours): Temp Pulse Resp BP Pulse Ox 97.8 F 51 L 20 137/67 93 L 06/11/18 08:30 06/11/18 08:30 06/11/18 08:30 06/11/18 08:30 06/11/18 08:30 - Medications Medications: Current Medications Acetaminophen (Tylenol 325mg Tab) 650 mg PO Q6 PRN PRN Reason: Pain, Mild (1-3) Allopurinol (Zyloprim) 100 mg PO DAILY [facility] Last Admin: 06/11/18 08:35 Dose: 100 mg Amlodipine Besylate (Norvasc) 5 mg PO DAILY [facility] Last Admin: 06/11/18 08:34 Dose: 5 mg Carvedilol (Coreg) 6.25 mg PO Q12 [facility] Last Admin: 06/11/18 08:34 Dose: 6.25 mg Cholecalciferol (Vitamin D) 1,000 intlu PO DAILY [facility] Last Admin: 06/11/18 08:35 Dose: 1,000 intlu Metronidazole 1,000 mg/ (Miscellaneous) 200 mls @ 200 mls/hr IVPB ONCE [facility] PRN Reason: Protocol Sodium Chloride (Sodium Chloride 0.9%) 1,000 mls @ 100 mls/hr IV .Q10H [facility] Last Admin: 06/11/18 08:38 Dose: 100 mls/hr Ciprofloxacin (Cipro 400mg/200ml Dsw) 400 mg in 200 mls @ 200 mls/hr IVPB Q12 [facility] PRN Reason: Protocol Last Admin: 06/11/18 08:34 Dose: 200 mls/hr Metronidazole (Flagyl 500mg/100ml Ns) 100 mls @ 100 mls/hr IVPB Q8 [facility] PRN Reason: Protocol Isosorbide Mononitrate (Imdur Er) 30 mg PO DAILY [facility] Last Admin: 06/11/18 08:34 Dose: 30 mg Ondansetron HCl (Zofran Inj) 4 mg IVP Q6 PRN PRN Reason: Nausea/Vomiting Pantoprazole Sodium (Protonix Inj) 40 mg IVP DAILY [facility] Last Admin: 06/11/18 08:35 Dose: 40 mg Paroxetine HCl (Paxil) 20 mg PO DAILY [facility] Last Admin: 06/11/18 08:35 Dose: 20 mg - Labs Labs: 06/11/18 05:30 06/11/18 05:30 PT 13.7 Seconds (9.8-13.1) H 06/10/18 07:20 INR 1.2 (0.9-1.2) 06/10/18 07:20 APTT 34.3 Seconds (25.6-37.1) 06/10/18 07:20 - Constitutional Appears: No Acute Distress - Head Exam Head Exam: NORMAL INSPECTION - Eye Exam Eye Exam: EOMI, Normal appearance - ENT Exam ENT Exam: Mucous Membranes Moist - Respiratory Exam Respiratory Exam: Clear to Ausculation Bilateral. absent: Wheezes - Cardiovascular Exam Cardiovascular Exam: REGULAR RHYTHM, +S1, +S2 - GI/Abdominal Exam GI & Abdominal Exam: Soft, Normal Bowel Sounds. absent: Tenderness - Extremities Exam Extremities Exam: Normal Inspection. absent: Calf Tenderness, Pedal Edema - Neurological Exam Neurological Exam: Alert, Awake - Psychiatric Exam Psychiatric exam: Normal Mood Assessment and Plan (1) HTN (hypertension) Status: Chronic (2) GERD (gastroesophageal reflux disease) Status: Chronic (3) Diverticulitis Status: Acute (4) IBS (irritable bowel syndrome) Status: Chronic - Assessment and Plan (Free Text) Assessment: Assessment/Plan: 83 YO female with PMHx of HTN, GERD, IBS and diverticulosis is admitted for acute diverticulitis. -VS stable -labs reviewed; hb stable -GI consulted; will need outpatient colonoscopy in 2 months -will advance to regular diet -PPI and H2 galindo on board -continue abx; metro and cipro -Plan as ordered Pt seen and examined with Dr. Lui
[2018-06-11] MEDS: metroNIDAZOLE 500mg/100ml NS 100 ML IVPB SCH ×2 (10:48→16:03)
--- NOTE | 2018-06-11 11:38 | CP.PCM.PN ---
<Lloyd Carvajal - Last Filed: 06/11/18 11:38> Subjective - Date & Time of Evaluation Date of Evaluation: 06/11/18 Time of Evaluation: 10:00 - Subjective Subjective: PGY5 GI Follow-up Pt seen and examined bedside still has mild abd pain in the periumbilical area Notes having 2 bloody Bm yesterday and, 1 normal BM in the morning Denies any melena, or hematemesis tolerating diet ROS: 12 point ROS conducted, neg other than above Objective - Vital Signs/Intake and Output Vital Signs (last 24 hours): Temp Pulse Resp BP Pulse Ox 97.8 F 51 L 20 137/67 93 L 06/11/18 08:30 06/11/18 08:30 06/11/18 08:30 06/11/18 08:30 06/11/18 08:30 - Medications Medications: Current Medications Acetaminophen (Tylenol 325mg Tab) 650 mg PO Q6 PRN PRN Reason: Pain, Mild (1-3) Allopurinol (Zyloprim) 100 mg PO DAILY [facility] Last Admin: 06/11/18 08:35 Dose: 100 mg Amlodipine Besylate (Norvasc) 5 mg PO DAILY [facility] Last Admin: 06/11/18 08:34 Dose: 5 mg Carvedilol (Coreg) 6.25 mg PO Q12 [facility] Last Admin: 06/11/18 08:34 Dose: 6.25 mg Cholecalciferol (Vitamin D) 1,000 intlu PO DAILY [facility] Last Admin: 06/11/18 08:35 Dose: 1,000 intlu Metronidazole 1,000 mg/ (Miscellaneous) 200 mls @ 200 mls/hr IVPB ONCE [facility] PRN Reason: Protocol Sodium Chloride (Sodium Chloride 0.9%) 1,000 mls @ 100 mls/hr IV .Q10H [facility] Last Admin: 06/11/18 08:38 Dose: 100 mls/hr Ciprofloxacin (Cipro 400mg/200ml Dsw) 400 mg in 200 mls @ 200 mls/hr IVPB Q12 [facility] PRN Reason: Protocol Last Admin: 06/11/18 08:34 Dose: 200 mls/hr Metronidazole (Flagyl 500mg/100ml Ns) 100 mls @ 100 mls/hr IVPB Q8 [facility] PRN Reason: Protocol Last Admin: 06/11/18 10:48 Dose: 100 mls/hr Isosorbide Mononitrate (Imdur Er) 30 mg PO DAILY [facility] Last Admin: 06/11/18 08:34 Dose: 30 mg Lactobacillus Acidophilus (Bacid Acidophilus) 1 cap PO BID [facility] Ondansetron HCl (Zofran Inj) 4 mg IVP Q6 PRN PRN Reason: Nausea/Vomiting Pantoprazole Sodium (Protonix Inj) 40 mg IVP DAILY [facility] Last Admin: 06/11/18 08:35 Dose: 40 mg Paroxetine HCl (Paxil) 20 mg PO DAILY [facility] Last Admin: 06/11/18 08:35 Dose: 20 mg - Labs Labs: 06/11/18 05:30 06/11/18 05:30 PT 13.7 Seconds (9.8-13.1) H 06/10/18 07:20 INR 1.2 (0.9-1.2) 06/10/18 07:20 APTT 34.3 Seconds (25.6-37.1) 06/10/18 07:20 - Constitutional Appears: Well, No Acute Distress - Head Exam Head Exam: ATRAUMATIC - Eye Exam Eye Exam: Normal appearance - ENT Exam ENT Exam: Mucous Membranes Moist, Normal Exam - Respiratory Exam Respiratory Exam: Clear to Ausculation Bilateral, NORMAL BREATHING PATTERN. absent: Rales, Rhonchi, Wheezes, Respiratory Distress - Cardiovascular Exam Cardiovascular Exam: REGULAR RHYTHM, +S1, +S2 - GI/Abdominal Exam GI & Abdominal Exam: Soft, Tenderness (periumbilical), Normal Bowel Sounds. absent: Distended, Firm, Guarding, Rigid, Organomegaly - Extremities Exam Extremities Exam: absent: Joint Swelling, Pedal Edema - Neurological Exam Neurological Exam: Alert, Awake, Oriented x3 - Psychiatric Exam Psychiatric exam: Normal Affect, Normal Mood - Skin Skin Exam: Dry, Intact, Normal Color, Warm Assessment and Plan - Assessment and Plan (Free Text) Assessment: Fernanda Velásquez is a 83F w/ hx of diverticulosis, CAD, HTN. IBS. HL who presents with rectal bleeding and abd pain Rectal bleeding, etiology unknown; likely diverticular; r/o malignancy or AVM or ischemic vs IBD Diverticulitis hx of divertivular disease IBS Plan: -Reviewed by Dr. Knight; CT Revealed diverticular disease and active diverticulitis in the sigmoid -h/h stable overnight -repeat hgb at 2100 -transfuse to keep hgb >9 -advance as tolerated, goal of low residual for at least 2 week and can then transition to fiber diet -no indication for colonoscopy at this time 2/[address], increase chance of perforation -recommend CTA is pt rebleeds, and return to ER -need oupt colonoscopy in 2 months -finish 10 days of outpt abx -rest of care as per primary team D/w Dr. Knight. <Ryley Knight - Last Filed: 06/12/18 11:10> Objective - Vital Signs/Intake and Output Vital Signs (last 24 hours): Temp Pulse Resp BP Pulse Ox 98.2 F 54 L 18 120/61 95 06/12/18 07:56 06/12/18 07:56 06/12/18 07:56 06/12/18 07:56 06/12/18 07:56 - Medications Medications: Current Medications Acetaminophen (Tylenol 325mg Tab) 650 mg PO Q6 PRN PRN Reason: Pain, Mild (1-3) Allopurinol (Zyloprim) 100 mg PO DAILY [facility] Last Admin: 06/12/18 08:29 Dose: 100 mg Amlodipine Besylate (Norvasc) 5 mg PO DAILY [facility] Last Admin: 06/12/18 08:28 Dose: 5 mg Carvedilol (Coreg) 6.25 mg PO Q12 [facility] Last Admin: 06/12/18 08:25 Dose: 6.25 mg Cholecalciferol (Vitamin D) 1,000 intlu PO DAILY [facility] Last Admin: 06/12/18 08:29 Dose: 1,000 intlu Metronidazole 1,000 mg/ (Miscellaneous) 200 mls @ 200 mls/hr IVPB ONCE [facility] PRN Reason: Protocol Sodium Chloride (Sodium Chloride 0.9%) 1,000 mls @ 100 mls/hr IV .Q10H [facility] Last Admin: 06/11/18 16:54 Dose: 100 mls/hr Ciprofloxacin (Cipro 400mg/200ml Dsw) 400 mg in 200 mls @ 200 mls/hr IVPB Q12 [facility] PRN Reason: Protocol Last Admin: 06/12/18 08:24 Dose: 200 mls/hr Metronidazole (Flagyl 500mg/100ml Ns) 100 mls @ 100 mls/hr IVPB Q8 [facility] PRN Reason: Protocol Last Admin: 06/12/18 08:30 Dose: 100 mls/hr Isosorbide Mononitrate (Imdur Er) 30 mg PO DAILY [facility] Last Admin: 06/12/18 08:29 Dose: 30 mg Lactobacillus Acidophilus (Bacid Acidophilus) 1 cap PO BID [facility] Last Admin: 06/12/18 08:24 Dose: 1 cap Ondansetron HCl (Zofran Inj) 4 mg IVP Q6 PRN PRN Reason: Nausea/Vomiting Pantoprazole Sodium (Protonix Inj) 40 mg IVP DAILY [facility] Last Admin: 06/12/18 08:25 Dose: 40 mg Paroxetine HCl (Paxil) 20 mg PO DAILY [facility] Last Admin: 06/12/18 08:29 Dose: 20 mg - Labs Labs: 06/11/18 05:30 06/11/18 05:30 PT 13.7 Seconds (9.8-13.1) H 06/10/18 07:20 INR 1.2 (0.9-1.2) 06/10/18 07:20 APTT 34.3 Seconds (25.6-37.1) 06/10/18 07:20 Attending/Attestation - Attestation I have personally seen and examined this patient.: Yes I have fully participated in the care of the patient.: Yes I have reviewed all pertinent clinical information, including history, physical exam and plan: Yes Notes (Text): 06/12/18 11:09 83F w/ hx of diverticulosis, CAD, HTN. IBS. HL who presents with rectal bleeding and abdominal pain now resolved in setting of diverticulitis. Needs outpatient colonoscopy in 6-8 weeks which she prefers to do with her pvt GI. Diet as tolerated
[2018-06-11] MEDS: Lactobacillus Acidophilus 500 MU Cap PO SCH (16:03)
[2018-06-11 16:38] VITALS: RESP 18
[2018-06-12] MEDS: metroNIDAZOLE 500mg/100ml NS 100 ML IVPB SCH ×2 (00:44→08:30)
[2018-06-12 07:57] VITALS: BP 120/61; PULSE 54; TEMP 98.2; O2SAT 95
[2018-06-12] MEDS: Ciprofloxacin 400mg/200ml D5W 400 MG/200 ML BAG IVPB SCH (08:24)
[2018-06-12] MEDS: Lactobacillus Acidophilus 500 MU Cap PO SCH (08:24)
[2018-06-12] MEDS: Cholecalciferol 1,000 INTLU TAB PO SCH (08:29)
--- NOTE | 2018-06-12 11:56 | CP.PCM.DIS ---
Provider - Provider Date of Admission: 06/10/18 11:26 Attending physician: Vishnu Lui MD Time Spent in preparation of Discharge (in minutes): 20 Diagnosis - Discharge Diagnosis (1) HTN (hypertension) Status: Chronic (2) GERD (gastroesophageal reflux disease) Status: Chronic (3) Diverticulitis Status: Acute (4) IBS (irritable bowel syndrome) Status: Chronic Hospital Course - Lab Results Lab Results: Micro Results 06/10/18 11:48 Blood-Venous Blood Culture - Preliminary NO GROWTH AFTER 48 HOURS Most Recent Lab Values WBC 9.6 K/uL (4.8-10.8) 06/11/18 05:30 RBC 3.51 Mil/uL (3.80-5.20) L 06/11/18 05:30 Hgb 11.5 g/dL (12.0-16.0) L 06/11/18 05:30 Hct 34.2 % (34.0-47.0) 06/11/18 05:30 MCV 97.4 fl (81.0-99.0) 06/11/18 05:30 MCH 32.8 pg (27.0-31.0) H 06/11/18 05:30 MCHC 33.6 g/dL (33.0-37.0) 06/11/18 05:30 RDW 14.6 % (11.5-14.5) H 06/11/18 05:30 Plt Count 181 K/uL (130-400) 06/11/18 05:30 MPV 8.0 fl (7.2-11.7) 06/11/18 05:30 Neut % (Auto) 70.4 % (50.0-75.0) 06/11/18 05:30 Lymph % (Auto) 15.9 % (20.0-40.0) L 06/11/18 05:30 [place] % (Auto) 11.0 % (0.0-10.0) H 06/11/18 05:30 Eos % (Auto) 2.1 % (0.0-4.0) 06/11/18 05:30 Baso % (Auto) 0.6 % (0.0-2.0) 06/11/18 05:30 Neut # (Auto) 6.7 K/uL (1.8-7.0) 06/11/18 05:30 Lymph # (Auto) 1.5 K/uL (1.0-4.3) 06/11/18 05:30 [place] # (Auto) 1.1 K/uL (0.0-0.8) H 06/11/18 05:30 Eos # (Auto) 0.2 K/uL (0.0-0.7) 06/11/18 05:30 Baso # (Auto) 0.1 K/uL (0.0-0.2) 06/11/18 05:30 PT 13.7 Seconds (9.8-13.1) H 06/10/18 07:20 INR 1.2 (0.9-1.2) 06/10/18 07:20 APTT 34.3 Seconds (25.6-37.1) 06/10/18 07:20 Sodium 139 mmol/l (132-148) 06/11/18 05:30 Potassium 4.1 MMOL/L (3.6-5.0) 06/11/18 05:30 Chloride 106 mmol/L (98-107) 06/11/18 05:30 Carbon Dioxide 20 mmol/L (22-30) L 06/11/18 05:30 Anion Gap 17 (10-20) 06/11/18 05:30 BUN 15 mg/dl (7-17) 06/11/18 05:30 Creatinine 1.2 mg/dl (0.7-1.2) 06/11/18 05:30 Est GFR ( Amer) 52 06/11/18 05:30 Est GFR (Non-Af Amer) 43 06/11/18 05:30 Random Glucose 89 mg/dL (65-105) 06/11/18 05:30 Calcium 9.3 mg/dL (8.4-10.2) 06/11/18 05:30 Total Bilirubin 1.1 mg/dl (0.2-1.3) 06/10/18 07:20 AST 45 U/L (14-36) H 06/10/18 07:20 ALT < 6 U/L (9-52) L D 06/10/18 07:20 Alkaline Phosphatase 59 U/L (38-126) 06/10/18 07:20 Total Protein 10.4 G/DL (6.3-8.2) H 06/10/18 07:20 Albumin 4.0 g/dL (3.5-5.0) 06/10/18 07:20 Globulin 6.4 gm/dL (2.2-3.9) H 06/10/18 07:20 Albumin/Globulin Ratio 0.6 (1.0-2.1) L 06/10/18 07:20 Lipase 246 U/L (23-300) 06/10/18 07:20 Urine Color Straw (YELLOW) 06/10/18 11:05 Urine Clarity Clear (Clear) 06/10/18 11:05 Urine pH 6.0 (5.0-8.0) 06/10/18 11:05 Ur Specific [place] 1.008 (1.003-1.030) 06/10/18 11:05 Urine Protein Negative mg/dL (NEGATIVE) 06/10/18 11:05 Urine Glucose (UA) Neg mg/dL (Normal) 06/10/18 11:05 Urine Ketones Negative mg/dL (NEGATIVE) 06/10/18 11:05 Urine Blood Small (NEGATIVE) 06/10/18 11:05 Urine Nitrate Negative (NEGATIVE) 06/10/18 11:05 Urine Bilirubin Negative (NEGATIVE) 06/10/18 11:05 Urine Urobilinogen 0.2-1.0 mg/dL (0.2-1.0) 06/10/18 11:05 Ur Leukocyte Esterase Neg [place]/uL (Negative) 06/10/18 11:05 Urine RBC (Auto) 1 /hpf (0-3) 06/10/18 11:05 Urine Microscopic WBC 1 /hpf (0-5) 06/10/18 11:05 Ur Squamous Epith Cells < 1 /hpf (0-5) 06/10/18 11:05 Urine Bacteria Rare (<OCC) 06/10/18 11:05 Stool Occult Blood Positive (NEGATIVE) H 06/11/18 10:00 Blood Type B POSITIVE 06/10/18 06:27 Blood Type Confirm B POSITIVE 06/10/18 19:00 Antibody Screen Negative 06/10/18 06:27 BBK History Checked No verified bt 06/10/18 06:27 - Hospital Course Hospital Course: 83 YO female with PMHx of HTN, GERD, IBS and diverticulosis is admitted for acute diverticulitis. GI was consulted, pt stable from GI, will require outpatient colonoscopy in 2 months. Pt tolerating PO diet, ambulating, and hemodynimacially stable. Pt to complete course of abx PO at home. Will d/c patient home with follow up with PMD in 1 week and follow up GI. Discharge Exam - Head Exam Head Exam: NORMAL INSPECTION - Eye Exam Eye Exam: Normal appearance - ENT Exam ENT Exam: Mucous Membranes Moist - Respiratory Exam Respiratory Exam: Clear to PA & Lateral, NORMAL BREATHING PATTERN - Cardiovascular Exam Cardiovascular Exam: REGULAR RHYTHM, +S1, +S2 - GI/Abdominal Exam GI & Abdominal Exam: Normal Bowel Sounds, Soft. absent: Tenderness - Neurological Exam Neurological exam: Alert, Oriented x3 - Psychiatric Exam Psychiatric exam: Normal Mood Discharge Plan - Discharge Medications Prescriptions: Ciprofloxacin HCl [Cipro] 500 mg PO BID #20 tablet Lactobacillus Acidophilus [Bacid Acidophilus] 1 cap PO BID #20 cap metroNIDAZOLE [Flagyl] 500 mg PO Q8 30 Days tab - Follow Up Plan Condition: FAIR Disposition: HOME/ ROUTINE Instructions: Low Fiber Diet, Bloody Stools, Adult (DC), Diverticulitis (DC) Additional Instructions: pt. cleared for discharge to Home today by , pt. to cont. low residue diet for 2 more weeks, then transition to fiber diet cont. cipro, flagyl f/u with in 1 week Referrals: Ryley Knight MD [Medical Doctor] - Vishnu Lui MD [Family Provider] -
== END 2018-06-12 15:50 | disposition home or self-care (01) ==
LOC: H.ER 05:46 → H.ERHOLD 11:26 → H.MEDSURG1 16:57
PROVIDERS: ADMIT Family Medicine; ATTEND Family Medicine
DX: K57.33 Diverticulitis of large intestine without perforation or abscess with bleeding (principal); K58.9 Irritable bowel syndrome, unspecified; K21.9 Gastro-esophageal reflux disease without esophagitis; I10 Essential (primary) hypertension; I34.1 Nonrheumatic mitral (valve) prolapse; I25.10 Atherosclerotic heart disease of native coronary artery without angina pectoris; M19.90 Unspecified osteoarthritis, unspecified site; Z95.5 Presence of coronary angioplasty implant and graft; F17.200 Nicotine dependence, unspecified, uncomplicated; Z79.899 Other long term (current) drug therapy; Z90.49 Acquired absence of other specified parts of digestive tract; Z88.2 Allergy status to sulfonamides; Z88.6 Allergy status to analgesic agent; Z91.040 Latex allergy status
CPT/HCPCS: 36415; 74176; 80048; 80053; 81003; 83690; 85025; 85027; 85610; 85730; 86850; 86900; 87040; 93005; 99285; C9113; G0328; G0378; J0744; J7030

== ENCOUNTER 2018-12-07 22:06 | Inpatient (IN) | payer MEDICARE, BC ==
[2018-12-07 22:07] VITALS: BMI 26.0
[2018-12-07] MEDS ORDERED: Sodium Chloride 0.9% 1,000 ML IV SCH (23:15)
[2018-12-07 23:44] LABS: BASO # 0.1 K/uL (0.0-0.2); BASO % 0.9 % (0.0-2.0); EOS # 0.2 K/uL (0.0-0.7); EOS % 2.7 % (0.0-4.0); HEMOGLOBIN 10.2 g/dL (12.0-16.0); LYMPH # 0.9 K/uL (1.0-4.3); LYMPH % 12.5 % (20.0-40.0); MEAN CELL VOLUME 99.4 fl (81.0-99.0); MEAN CORPUSCULAR HEMOGLOBIN 33.2 pg (27.0-31.0); MEAN CORPUSCULAR HGB CONC 33.4 g/dL (33.0-37.0); MEAN PLATELET VOLUME 7.5 fl (7.2-11.7); MONO # 0.6 K/uL (0.0-0.8); NEUT # 5.6 K/uL (1.8-7.0); NEUT % 75.9 % (50.0-75.0); NRBC % 0.1 % (0.0-0.0); RBC 3.07 Mil/uL (3.80-5.20); RED CELL DISTRIBUTION WIDTH 14.9 % (11.5-14.5); WHITE BLOOD COUNT 7.4 K/uL (4.8-10.8)
[2018-12-07 23:52] LABS: SQUAMOUS EPITHIAL < 1 /hpf (0-5); URINE BACTERIA RARE (<OCC); URINE BILIRUBIN NEGATIVE (NEGATIVE); URINE BLOOD SMALL (NEGATIVE); URINE CLARITY SLIGHTY-CLOUDY (Clear); URINE COLOR STRAW (YELLOW); URINE GLUCOSE (UA) NEG (NEGATIVE); URINE LEUKOCYTE ESTERASE MOD Leu/uL (Negative); URINE PROTEIN 30 mg/dL (NEGATIVE); URINE UROBILINOGEN 0.2-1.0 mg/dL (0.2-1.0)
[2018-12-07 23:54] LABS: ALBUMIN 3.7 g/dL (3.5-5.0); ALT/SGPT < 6 U/L (9-52); AST/SGOT 46 U/L (14-36); BLOOD UREA NITROGEN 35 mg/dl (7-17); CALCIUM 10.1 mg/dL (8.4-10.2); GFR NON-AFRICAN AMERICAN 27
[2018-12-08] LABS: ALB/GLOB RATIO 0.5 (1.0-2.1)
[2018-12-08] MEDS ORDERED: Ciprofloxacin 400mg/200ml D5W 400 MG/200 ML BAG IVPB ONE ×2 (01:02→02:05)
--- NOTE | 2018-12-08 01:33 | ED PDOC ---
HPI: Female Pain Time Seen by Provider: 12/07/18 22:27 Chief Complaint (Nursing): Back Pain Chief Complaint (Provider): UTI History Per: Patient History/Exam Limitations: no limitations Onset/Duration Of Symptoms: Days (two weeks) Current Symptoms Are (Timing): Still Present Severity: Mild Quality Of Discomfort: Dull, Aching, "Pain" Associated Symptoms: Back Pain, Urinary Symptoms (Pt presents to the ED at the [id number] of her PMD for evaluation of bilateraly CVA tenderness, occasional fever and a burning sensation when she urinates ; pt denies nausea vomiting and diarhhea as well as other chronic conditions; pt does have CKD stage 3) Past Medical History Reviewed: Historical Data, Nursing Documentation, Vital Signs Vital Signs: Last Vital Signs Temp 97.4 F L 12/07/18 22:17 Pulse 50 L 12/07/18 22:17 Resp 18 12/07/18 22:17 BP 132/65 12/07/18 22:17 Pulse Ox 97 12/07/18 22:17 - Medical History PMH: CAD, HTN, Mitral Valve Prolapse - Surgical History Surgical History: Cholecystectomy, Coronary Stent - Family History Family History: States: Unknown Family Hx - Home Medications Home Medications: Ambulatory Orders Medication Instructions Recorded Amlodipine Besylate [Norvasc] 5 mg PO DAILY 03/16/15 Paroxetine HCl [Paxil] 20 mg PO DAILY 03/16/15 Allopurinol [Zyloprim] 100 mg PO DAILY 06/10/18 Carvedilol [Coreg] 6.25 mg PO Q12 06/10/18 Cholecalciferol [Vitamin D 1000 IU] 1,000 unit PO DAILY 06/10/18 Isosorbide Mononitrate ER [Imdur 30 mg PO DAILY 06/10/18 ER] Ranitidine HCl [Zantac] 300 mg PO DAILY 06/10/18 Ciprofloxacin HCl [Cipro] 500 mg PO BID #20 tablet 06/12/18 Lactobacillus Acidophilus [Bacid 1 cap PO BID #20 cap 06/12/18 Acidophilus] metroNIDAZOLE [Flagyl] 500 mg PO Q8 30 Days tab 06/12/18 - Allergies Allergies/Adverse Reactions: Allergies Allergy/AdvReac Type Severity Reaction Status Date / Time aspirin Allergy ANAPHYLAXIS Verified 06/10/18 06:02 codeine Allergy RASH Verified 06/10/18 06:02 Latex, Natural Rubber Allergy ITCHING Verified 06/10/18 06:02 Sulfa (Sulfonamide Allergy RASH Verified 06/10/18 06:02 Antibiotics) Review of Systems ROS Statement: Except As Marked, All Systems Reviewed And Found Negative Genitourinary Female: Positive for: Dysuria Musculoskeletal: Positive for: Back Pain Physical Exam - Reviewed Nursing Documentation Reviewed: Yes Vital Signs Reviewed: Yes - Physical Exam Appears: Positive for: Well, Non-toxic, No Acute Distress. Negative for: Uncomfortable Head Exam: Positive for: ATRAUMATIC, NORMAL INSPECTION Skin: Positive for: Normal Color, Warm, Dry. Negative for: Diaphoresis, Pallor, Rash Neck: Positive for: Normal Cardiovascular/Chest: Positive for: Bradycardia Respiratory: Positive for: Normal Breath Sounds. Negative for: Decreased Breath Sounds Pulses-Carotid (L): 1+ Pulses-Carotid (R): 1+ Pulses-Radial (L): 2+ Pulses-Radial (R): 1+ Back: Positive for: L CVA Tenderness, R CVA Tenderness. Negative for: Normal Inspection, Vertebral Tenderness, Decreased ROM, Muscle Spasm Neurologic/Psych: Positive for: Alert, dominatrix II-XII, Oriented - Laboratory Results Result Diagrams: 12/07/18 23:25 12/07/18 23:25 Lab Results: Total Bilirubin 1.2 mg/dl (0.2-1.3) 12/07/18 23:25 AST 46 U/L (14-36) H 12/07/18 23:25 ALT < 6 U/L (9-52) L 12/07/18 23:25 Alkaline Phosphatase 62 U/L (38-126) 12/07/18 23:25 Total Protein 11.6 G/DL (6.3-8.2) H 12/07/18 23:25 Albumin 3.7 g/dL (3.5-5.0) 12/07/18 23:25 Globulin 7.9 gm/dL (2.2-3.9) H 12/07/18 23:25 Albumin/Globulin Ratio 0.5 (1.0-2.1) L 12/07/18 23:25 Urine Color Straw (YELLOW) 12/07/18 23:25 Urine Clarity Slighty-cloudy (Clear) 12/07/18 23:25 Urine pH 6.0 (5.0-8.0) 12/07/18 23:25 Ur Specific [place] 1.009 (1.003-1.030) 12/07/18 23:25 Urine Protein 30 mg/dL (NEGATIVE) 12/07/18 23:25 Urine Glucose (UA) Neg mg/dL (NEGATIVE) 12/07/18 23:25 Urine Ketones Negative mg/dL (NEGATIVE) 12/07/18 23:25 Urine Blood Small (NEGATIVE) 12/07/18 23: Urine Nitrate Negative (NEGATIVE) 12/07/18 23: Urine Bilirubin Negative (NEGATIVE) 12/07/18 23: Urine Urobilinogen 0.2-1.0 mg/dL (0.2-1.0) 12/07/18 23:25 Ur Leukocyte Esterase Mod [place]/uL (Negative) 12/07/18 23: Urine RBC (Auto) 5 /hpf (0-3) H 12/07/18 23:25 Urine Microscopic WBC 47 /hpf (0-5) H 12/07/18:25 Ur Squamous Epith Cells < 1 /hpf (0-5) 12/07/18 23:25 Urine Bacteria Rare (<OCC) 12/07/18 23:25 - ECG O2 Sat by Pulse Oximetry: 97 Medical Decision Making Medical Decision Making: R/O Pyleonephritis (+) Pt is also bradycardic (50) - EKG ordered Pt started on IV antibiotics (cipro) Dr Chadwick phoned for admission; pt will be admitted under his service to med /surg pending EKG results Disposition - Clinical Impression Clinical Impression: Pyelonephritis - Patient ED Disposition Is Patient to be Admitted: Yes Discussed With : Cristopher Jennings Doctor Will See Patient In The: Hospital Counseled Patient/Family Regarding: Studies Performed, Diagnosis - Disposition Disposition Time: 01:38 Condition: STABLE - Pt Status Changed To: Hospital Disposition Of: Inpatient - Admit Certification Admit to Inpatient:: After my assessment, the patient will require hospitalization for at least two midnights. This is because of the severity of symptoms shown, intensity of services needed, and/or the medical risk in this patient being treated as an outpatient.
[2018-12-08] MEDS: Sodium Chloride 0.9% 1,000 ML IV SCH ×3 (07:30→21:05)
[2018-12-08] MEDS: Ciprofloxacin 400mg/200ml D5W 400 MG/200 ML BAG IVPB SCH ×2 (09:16→20:58)
--- NOTE | 2018-12-08 10:13 | CP.PCM.HP ---
History of Present Illness - History of Present Illness History of Present Illness: 83 yo female with PMHx of HTN, GERD, IBS and diverticulosis presented to ED with flank pain, dysuria, and fever. Patient was admitted for suspected pyelonephritis. Patient seen and examined at bedside. Mild improvement of symptoms noted with treatment. Patient admits to history of frequent falls in the past 2 weeks, mechanical as per patient. No other complaints at this time. No chest pain, sob, abdominal pain, palpitations, n/v/d/c. PMHx: HTN, GERD, IBS and diverticulosis SurgHx: thyroidectomy, total hysterextomy, lumpectomy (breast), arthoscopy (R knee), cholesectomy Allergies: asa, codeine, latex, sulfa Meds: as per chart Present on Admission - Present on Admission Any Indicators Present on Admission: No Review of Systems - Review of Systems All systems: reviewed and no additional remarkable complaints except (mentioned above) Past Patient History - Past Medical History & Family History Past Medical History?: Yes - Past Social History Smoking Status: Never Smoked - CARDIAC Hx Cardiac Disorders: Yes - PULMONARY Hx Respiratory Disorders: No - NEUROLOGICAL Hx Neurological Disorder: No - HEENT Hx HEENT Problems: No - RENAL Hx Chronic Kidney Disease: Yes Other/Comment: CKD stage 3 - ENDOCRINE/METABOLIC Hx Endocrine Disorders: No - HEMATOLOGICAL/ONCOLOGICAL Hx Blood Disorders: Yes - INTEGUMENTARY Hx Dermatological Problems: No - MUSCULOSKELETAL/RHEUMATOLOGICAL Hx Musculoskeletal Disorders: Yes (right knee pain) - GASTROINTESTINAL Hx Gastrointestinal Disorders: Yes Hx Gastroesophageal Reflux: Yes Hx Irritable Bowel: Yes - GENITOURINARY/GYNECOLOGICAL Hx Genitourinary Disorders: No - PSYCHIATRIC Hx Psychophysiologic Disorder: No Hx Substance Use: No - SURGICAL HISTORY Hx Surgeries: Yes Hx Cholecystectomy: Yes Hx Coronary Stent: Yes - ANESTHESIA Hx Anesthesia: Yes Hx Anesthesia Reactions: No Hx Malignant Hyperthermia: No Has any member of the family had a problem w/ anesthesia?: No Meds Allergies/Adverse Reactions: Allergies Allergy/AdvReac Type Severity Reaction Status Date / Time aspirin Allergy ANAPHYLAXIS Verified 06/10/18 06:02 codeine Allergy RASH Verified 06/10/18 06:02 Latex, Natural Rubber Allergy ITCHING Verified 06/10/18 06:02 Sulfa (Sulfonamide Allergy RASH Verified 06/10/18 06:02 Antibiotics) Physical Exam - Constitutional Appears: Non-toxic, No Acute Distress - Head Exam Head Exam: NORMAL INSPECTION - Eye Exam Eye Exam: Normal appearance - Respiratory Exam Respiratory Exam: NORMAL BREATHING PATTERN - Cardiovascular Exam Cardiovascular Exam: +S1, +S2 - GI/Abdominal Exam GI & Abdominal Exam: Soft - Neurological Exam Neurological exam: Alert, Oriented x3 - Psychiatric Exam Psychiatric exam: Normal Affect, Normal Mood - Skin Skin Exam: Normal Color, Warm Results - Vital Signs Recent Vital Signs: Last Vital Signs Temp 97.9 F 12/08/18 08:34 Pulse 98 H 12/08/18 09:27 Resp 19 12/08/18 08:34 BP 106/56 L 12/08/18 09:27 Pulse Ox 94 L 12/08/18 08:34 - Labs Result Diagrams: 12/08/18 10:00 12/08/18 10:00 Labs: Laboratory Results - last 24 hr 12/07/18 12/07/18 12/07/18 23:25 23:25 23:25 WBC 7.4 RBC 3.07 L Hgb 10.2 L Hct 30.5 L MCV 99.4 H D MCH 33.2 H MCHC 33.4 RDW 14.9 H Plt Count 211 MPV 7.5 Neut % (Auto) 75.9 H Lymph % (Auto) 12.5 L [place] % (Auto) 8.0 Eos % (Auto) 2.7 Baso % (Auto) 0.9 Neut # (Auto) 5.6 Lymph # (Auto) 0.9 L [place] # (Auto) 0.6 Eos # (Auto) 0.2 Baso # (Auto) 0.1 Sodium 134 Potassium 5.6 H Chloride 100 Carbon Dioxide 18 L Anion Gap 22 H BUN 35 H Creatinine 1.8 H Est GFR ( Amer) 33 Est GFR (Non-Af Amer) 27 Random Glucose 95 Lactic Acid Calcium 10.1 Total Bilirubin 1.2 AST 46 H ALT < 6 L Alkaline Phosphatase 62 Total Protein 11.6 H Albumin 3.7 Globulin 7.9 H Albumin/Globulin Ratio 0.5 L Urine Color Straw Urine Clarity Slighty-cloudy Urine pH 6.0 Ur Specific [place] 1.009 Urine Protein 30 Urine Glucose (UA) Neg Urine Ketones Negative Urine Blood Small Urine Nitrate Negative Urine Bilirubin Negative Urine Urobilinogen 0.2-1.0 Ur Leukocyte Esterase Mod Urine RBC (Auto) 5 H Urine Microscopic WBC 47 H Ur Squamous Epith Cells < 1 Urine Bacteria Rare 12/08/18 01:11 WBC RBC Hgb Hct MCV MCH MCHC RDW Plt Count MPV Neut % (Auto) Lymph % (Auto) [place] % (Auto) Eos % (Auto) Baso % (Auto) Neut # (Auto) Lymph # (Auto) [place] # (Auto) Eos # (Auto) Baso # (Auto) Sodium Potassium Chloride Carbon Dioxide Anion Gap BUN Creatinine Est GFR ( Amer) Est GFR (Non-Af Amer) Random Glucose Lactic Acid 0.9 Calcium Total Bilirubin AST ALT Alkaline Phosphatase Total Protein Albumin Globulin Albumin/Globulin Ratio Urine Color Urine Clarity Urine pH Ur Specific [place] Urine Protein Urine Glucose (UA) Urine Ketones Urine Blood Urine Nitrate Urine Bilirubin Urine Urobilinogen Ur Leukocyte Esterase Urine RBC (Auto) Urine Microscopic WBC Ur Squamous Epith Cells Urine Bacteria Assessment & Plan (1) Frequent falls Status: Acute (2) Pyelonephritis Status: Acute - Assessment and Plan (Free Text) Plan: cont iv abx pending urine cx monitor labs monitor vitals obtain PT eval pain management prn rest of plan as ordered
[2018-12-08 10:21] LABS: CALCIUM 9.6 mg/dL (8.4-10.2)
[2018-12-08 10:22] LABS: HEMOGLOBIN 9.7 g/dL (12.0-16.0); MEAN CELL VOLUME 102.1 fl (81.0-99.0); MEAN CORPUSCULAR HEMOGLOBIN 33.6 pg (27.0-31.0); MEAN CORPUSCULAR HGB CONC 32.9 g/dL (33.0-37.0); RBC 2.89 Mil/uL (3.80-5.20); RED CELL DISTRIBUTION WIDTH 14.6 % (11.5-14.5); WHITE BLOOD COUNT 8.2 K/uL (4.8-10.8)
[2018-12-09 06:47] LABS: HEMOGLOBIN 9.4 g/dL (12.0-16.0); MEAN CELL VOLUME 102.1 fl (81.0-99.0); MEAN CORPUSCULAR HEMOGLOBIN 33.7 pg (27.0-31.0); RBC 2.78 Mil/uL (3.80-5.20); RED CELL DISTRIBUTION WIDTH 14.7 % (11.5-14.5); WHITE BLOOD COUNT 9.6 K/uL (4.8-10.8)
[2018-12-09 06:53] LABS: CALCIUM 9.5 mg/dL (8.4-10.2)
[2018-12-09] MEDS ORDERED: Pantoprazole 40 mg EC Tab PO SCH (09:45)
--- NOTE | 2018-12-09 11:06 | CP.PCM.PN ---
<Tonya Latif - Last Filed: 12/09/18 11:07> Subjective - Date & Time of Evaluation Date of Evaluation: 12/09/18 Time of Evaluation: 11:04 - Subjective Subjective: No acute overnight events. Pt seen and examined by bedside this AM Pt states that she is feeling much better this AM. Tolerating PO diet, and working with PT. Endorsing epigastric after breakfast this AM Denies chest pain, dyspnea, dizziness, n/v and remains without fever. Objective - Vital Signs/Intake and Output Vital Signs (last 24 hours): Temp Pulse Resp BP Pulse Ox 97.6 F 61 20 121/64 94 L 12/09/18 07:55 12/09/18 09:50 12/09/18 07:55 12/09/18 09:50 12/09/18 07:55 - Medications Medications: Current Medications Acetaminophen (Tylenol 325mg Tab) 650 mg PO Q6 PRN PRN Reason: Pain, Mild (1-3) Allopurinol (Zyloprim) 100 mg PO DAILY [facility] Last Admin: 12/09/18 09:50 Dose: 100 mg Carvedilol (Coreg) 6.25 mg PO Q12 [facility] Last Admin: 12/09/18 09:50 Dose: 6.25 mg Enoxaparin Sodium (Lovenox) 30 mg SC DAILY [facility]; Protocol Ceftriaxone Sodium 1 gm/ (Sodium Chloride) 100 mls @ 100 mls/hr IVPB DAILY [facility]; Protocol Ibuprofen (Motrin Tab) 600 mg PO Q8 PRN PRN Reason: Pain, moderate (4-7) Isosorbide Mononitrate (Imdur Er) 30 mg PO DAILY [facility] Last Admin: 12/09/18 09:53 Dose: 30 mg Ketorolac Tromethamine (Toradol) 30 mg IVP Q6 PRN PRN Reason: Pain, severe (8-10) Pantoprazole Sodium (Protonix Ec Tab) 40 mg PO DAILY [facility] Paroxetine HCl (Paxil) 20 mg PO DAILY [facility] Last Admin: 12/09/18 09:53 Dose: 20 mg - Labs Labs: 12/09/18 05:40 12/09/18 05:40 - Constitutional Appears: No Acute Distress - Head Exam Head Exam: NORMAL INSPECTION - Eye Exam Eye Exam: Normal appearance - ENT Exam ENT Exam: Mucous Membranes Moist - Respiratory Exam Respiratory Exam: Clear to Ausculation Bilateral, NORMAL BREATHING PATTERN. absent: Wheezes - Cardiovascular Exam Cardiovascular Exam: REGULAR RHYTHM, +S1, +S2 - GI/Abdominal Exam GI & Abdominal Exam: Soft, Tenderness (epigastric tenderness ), Normal Bowel Sounds. absent: Distended, Guarding - Extremities Exam Extremities Exam: Normal Inspection. absent: Calf Tenderness - Back Exam Back Exam: absent: CVA tenderness (L), CVA tenderness (R) - Neurological Exam Neurological Exam: Alert, Awake - Psychiatric Exam Psychiatric exam: Normal Mood Assessment and Plan (1) Anemia Status: Chronic (2) Bacteremia Status: Acute (3) Pyelonephritis Status: Acute (4) GERD (gastroesophageal reflux disease) Status: Chronic (5) HTN (hypertension) Status: Chronic - Assessment and Plan (Free Text) Assessment: Assessment/Plan: 83 YO Female with PMHx of HTN, GERD, IBS and diverticulosis is admitted for Pyelonephritis Workup sig for bacteriuria and bacteremia. Pyelonephritis -acute -Ucx sig for gram neg rods -C/w abx (d.c cipro start rocephin) -ID on board follow up recs -pain management Bacteremia -acute -Bcx sig for gram neg rods -follow up sensitivity -c.w with IV abx -ID on board, follow up recs GERD -famotidine PO daily HTN -chronic -c/w home meds Anemia, Macrocytic -chronic -start FeSol Plan as ordered DVT prolyx: Lovenox SC <Cristopher Jennings - Last Filed: 12/09/18 17:13> Objective - Vital Signs/Intake and Output Vital Signs (last 24 hours): Temp Pulse Resp BP Pulse Ox 98.3 F 58 L 18 112/63 95 12/09/18 16:33 12/09/18 16:33 12/09/18 16:33 12/09/18 16:33 12/09/18 16:33 - Medications Medications: Current Medications Acetaminophen (Tylenol 325mg Tab) 650 mg PO Q6 PRN PRN Reason: Pain, Mild (1-3) Allopurinol (Zyloprim) 100 mg PO DAILY [facility] Last Admin: 12/09/18 09:50 Dose: 100 mg Carvedilol (Coreg) 6.25 mg PO Q12 [facility] Last Admin: 12/09/18 09:50 Dose: 6.25 mg Enoxaparin Sodium (Lovenox) 30 mg SC DAILY [facility]; Protocol Last Admin: 12/09/18 13:37 Dose: 30 mg Famotidine (Pepcid) 20 mg PO DAILY [facility] Ferrous Sulfate (Feosol) 325 mg PO DAILY [facility] Ceftriaxone Sodium 1 gm/ (Sodium Chloride) 100 mls @ 100 mls/hr IVPB DAILY [facility]; Protocol Last Admin: 12/09/18 13:34 Dose: 100 mls/hr Ibuprofen (Motrin Tab) 600 mg PO Q8 PRN PRN Reason: Pain, moderate (4-7) Isosorbide Mononitrate (Imdur Er) 30 mg PO DAILY [facility] Last Admin: 12/09/18 09:53 Dose: 30 mg Ketorolac Tromethamine (Toradol) 30 mg IVP Q6 PRN PRN Reason: Pain, severe (8-10) Paroxetine HCl (Paxil) 20 mg PO DAILY [facility] Last Admin: 12/09/18 09:53 Dose: 20 mg - Labs Labs: 12/09/18 05:40 12/09/18 05:40 Assessment and Plan (1) Frequent falls Status: Acute (2) Pyelonephritis Status: Acute Attending/Attestation - Attestation I have personally seen and examined this patient.: Yes I have fully participated in the care of the patient.: Yes I have reviewed all pertinent clinical information, including history, physical exam and plan: Yes
--- NOTE | 2018-12-09 11:52 | CP.PCM.CON ---
History of Present Illness - History of Present Illness History of Present Illness: 83 yo female with PMHx of HTN, GERD, IBS and diverticulosis presented to ED with flank pain, dysuria, and fever. PMHx: HTN, GERD, IBS and diverticulosis SurgHx: thyroidectomy, total hysterextomy, lumpectomy (breast), arthoscopy (Sherry mena), cholesectomy Allergies: asa, codeine, latex, sulfa Meds: as per chart Review of Systems - Constitutional Constitutional: Anorexia, Chills, Fever, Malaise - EENT Eyes: absent: As Per HPI, Blind Spots, Blurred Vision, Change in Vision, Decreased Night Vision, Diplopia, Discharge, Dry Eye, Exophthalmos, Floaters, Irritation, Itchy Eyes, Loss of Peripheral Vision, Pain, Photophobia, Requires Corrective Lenses, Sees Flashes, Spots in Vision, Tunnel Vision, Other Visual Disturbances, Loss of Vision, Other Ears: absent: As Per HPI, Decreased Hearing, Ear Discharge, Ear Pain, Tinnitus, Abnormal Hearing, Disequilibrium, Dizziness, Other Nose/Mouth/Throat: absent: As Per HPI, Epistaxis, Nasal Congestion, Nasal Discharge, Nasal Obstruction, Nasal Trauma, Nose Pain, Post Nasal Drip, Sinus Pain, Sinus Pressure, Bleeding Gums, Change in Voice, Dental Pain, Dry Mouth, Dysphagia, Halitosis, Hoarsness, Lip Swelling, Mouth Lesions, Mouth Pain, Odynophagia, Sore Throat, Throat Swelling, Tongue Swelling, Facial Pain, Neck Pain, Neck Mass, Other - Breasts Breasts: absent: As Per HPI, Change in Shape, Mass, Pain, Nipple Discharge, Nipple Inversion, Skin Changes, Swelling, Other - Cardiovascular Cardiovascular: absent: As Per HPI, Acrocyanosis, Chest Pain, Chest Pain at Rest, Chest Pain with Activity, Claudication, Diaphoresis, Dyspnea, Dyspnea on Exertion, Edema, Irregular Heart Rhythm, Pain Radiating to Arm/Neck/Jaw, Leg Edema, Leg Ulcers, Lightheadedness, Orthopnea, Palpitations, Paroxysmal Nocturnal Dyspnea, Pedal Edema, Radiating Pain, Rapid Heart Rate, Slow Heart Rate, Syncope, Other - Respiratory Respiratory: absent: As Per HPI, Cough, Dyspnea, Hemoptysis, Dyspnea on Exertion, Wheezing, Snoring, Stridor, Pain on Inspiration, Chest Congestion, Excessive Mucous Production, Change in Mucous Color, Pain with Coughing, Other - Gastrointestinal Gastrointestinal: absent: As Per HPI, Abdominal Pain, Belching, Bloating, Change in Bowel Habits, Change in Stool Character, Coffee Ground Emesis, Constipation, Cramping, Diarrhea, Dyspepsia, Dysphagia, Early Satiety, Excessive Flatus, Fecal Incontinence, Heartburn, Hematemesis, Hematochezia, Loose Stools, Melena, Nausea, Odynophagia, Temesmus, Vomiting, Other - Genitourinary Genitourinary: As Per HPI - Reproductive: Female Reproductive:Female: absent: As Per HPI, Amenorrhea, Amenorrhea/ Control, Currently Menstual, Cycle <21 Days, Cycle >35 Days, Cycle Variable, Menses 1-7 Days, Menses >/= 8 Days, Menses Variable, Cycle > 4 Weeks Between, No Menses for 6 Months, Heavy Menses, Light Menses, Normal Menses, Spotting Between Cycles, S/ P Hysterectomy, Menopausal, Post Menopausal, Premenarche, Abnormal Vaginal Bleeding, Dysmenorrhea, Dyspareunia, Genital Lesions, Genital Pruritis, Pelvic Pain, Prolapse Symptoms, Sexual Dysfunction, Vaginal Discharge, Vaginal Dryness, Vaginal Odor, Vaginal Pruritis, Other - Menstruation Menstruation: absent: As Per HPI, Amenorrhea, Amenorrhea/ Control, C urrently Menstual, Cycle <21 Days, Cycle >35 Days, Cycle Variable, Menses 1-7 Days, Menses >/= 8 Days, Menses Variable, Cycle > 4 Weeks Between, No Menses for 6 Months, Heavy Menses, Light Menses, Normal Menses, Spotting Between Cycles, S/P Hysterectomy, Menopausal, Post Menopausal, Premenarche, Abnormal Vaginal Bleeding, Dysmenorrhea, Other - Musculoskeletal Musculoskeletal: absent: As Per HPI, Abnormal Gait, Arthralgias, Atrophy, Back Pain, Deformity, Joint Swelling, Limited Range of Motion, Loss of Height, Muscle Cramps, Muscle Weakness, Myalgias, Neck Pain, Numbness, Radiating Pain into Limb, Stiffness, Tingling, Other - Integumentary Integumentary: absent: As Per HPI, Acne, Alopecia, Bleeding Lesions, Change in Hair, Change in Nails, Change in Pigmentation, Changing Lesions, Dry Skin, Erythema, Furuncle, Hirsutism, Lesions, New Lesions, Non-Healing Lesions, Photosensitivity, Pruritus, Rash, Skin Pain, Skin Ulcer, Sores, Striae, Swelling, Unusual Bruising, Wounds, Jaundice, Other - Neurological Neurological: absent: As Per HPI, Abnormal Gait, Abnormal Hearing, Abnormal Movements, Abnormal Speech, Behavioral Changes, Burning Sensations, Confusion, Convulsions, Disequilibrium, Dizziness, Numbness, Focal Weakness, Frequent Falls, Headaches, Lack of Coordination, Loss of Vision, Memory Loss, Paresthesias, Radicular Pain, Restless Legs, Sensory Deficit, Syncope, Tingling, Tremor, Vertigo, Weakness, Other Visual Disturbances, Other - Psychiatric Psychiatric: absent: As Per HPI, Abnormal Sleep Pattern, Anhedonia, Anxiety, Auditory Hallucinations, Behavioral Changes, Change in Appetite, Change in Libido, Confusion, Depression, Difficulty Concentrating, Hallucinations, Homicidal Ideation, Hopelessness, Irritability, Memory Loss, Mood Swings, Panic Attacks, Paranoia, Suicidal Ideation, Visual Hallucinations, Tactile Morel llucinations, Other - Endocrine Endocrine: absent: As Per HPI, Change in Body Appearance, Change in Libido, Cold Intolorance, Deepening of Voice, Excessive Sweating, Fatigue, Flushing, Heat Intolorance, Increase in Ring/Shoe/Hat Size, Palpitations, Polydipsia, Polyphagia, Polyuria, Other - Hematologic/Lymphatic Hematologic: absent: As Per HPI, Easy Bleeding, Easy Bruising, Lymphadenopathy, Other Past Patient History - Past Medical History & Family History Past Medical History?: Yes - Past Social History Smoking Status: Never Smoked - CARDIAC Hx Cardiac Disorders: Yes - PULMONARY Hx Respiratory Disorders: No - NEUROLOGICAL Hx Neurological Disorder: No - HEENT Hx HEENT Problems: No - RENAL Hx Chronic Kidney Disease: Yes Other/Comment: CKD stage 3 - ENDOCRINE/METABOLIC Hx Endocrine Disorders: No - HEMATOLOGICAL/ONCOLOGICAL Hx Blood Disorders: Yes - INTEGUMENTARY Hx Dermatological Problems: No - MUSCULOSKELETAL/RHEUMATOLOGICAL Hx Musculoskeletal Disorders: Yes (right knee pain) - GASTROINTESTINAL Hx Gastrointestinal Disorders: Yes Hx Gastroesophageal Reflux: Yes Hx Irritable Bowel: Yes - GENITOURINARY/GYNECOLOGICAL Hx Genitourinary Disorders: No - PSYCHIATRIC Hx Psychophysiologic Disorder: No Hx Substance Use: No - SURGICAL HISTORY Hx Surgeries: Yes Hx Cholecystectomy: Yes Hx Coronary Stent: Yes - ANESTHESIA Hx Anesthesia: Yes Hx Anesthesia Reactions: No Hx Malignant Hyperthermia: No Has any member of the family had a problem w/ anesthesia?: No Meds Allergies/Adverse Reactions: Allergies Allergy/AdvReac Type Severity Reaction Status Date / Time aspirin Allergy ANAPHYLAXIS Verified 06/10/18 06:02 codeine Allergy RASH Verified 06/10/18 06:02 Latex, Natural Rubber Allergy ITCHING Verified 06/10/18 06:02 Sulfa (Sulfonamide Allergy RASH Verified 06/10/18 06:02 Antibiotics) - Medications Medications: Current Medications Acetaminophen (Tylenol 325mg Tab) 650 mg PO Q6 PRN PRN Reason: Pain, Mild (1-3) Allopurinol (Zyloprim) 100 mg PO DAILY [facility] Last Admin: 12/09/18 09:50 Dose: 100 mg Carvedilol (Coreg) 6.25 mg PO Q12 [facility] Last Admin: 12/09/18 09:50 Dose: 6.25 mg Enoxaparin Sodium (Lovenox) 30 mg SC DAILY [facility]; Protocol Famotidine (Pepcid) 20 mg PO DAILY [facility] Ferrous Sulfate (Feosol) 325 mg PO DAILY [facility] Ceftriaxone Sodium 1 gm/ (Sodium Chloride) 100 mls @ 100 mls/hr IVPB DAILY [facility]; Protocol Ibuprofen (Motrin Tab) 600 mg PO Q8 PRN PRN Reason: Pain, moderate (4-7) Isosorbide Mononitrate (Imdur Er) 30 mg PO DAILY [facility] Last Admin: 12/09/18 09:53 Dose: 30 mg Ketorolac Tromethamine (Toradol) 30 mg IVP Q6 PRN PRN Reason: Pain, severe (8-10) Pantoprazole Sodium (Protonix Ec Tab) 40 mg PO DAILY [facility] Paroxetine HCl (Paxil) 20 mg PO DAILY [facility] Last Admin: 12/09/18 09:53 Dose: 20 mg Physical Exam - Constitutional Appears: Toxic, No Acute Distress - Head Exam Head Exam: ATRAUMATIC, NORMAL INSPECTION, NORMOCEPHALIC - Eye Exam Eye Exam: EOMI, PERRL. absent: Scleral icterus - ENT Exam ENT Exam: Mucous Membranes Dry - Neck Exam Neck exam: Negative for: Lymphadenopathy - Respiratory Exam Respiratory Exam: Decreased Breath Sounds, Clear to Auscultation Bilateral - Cardiovascular Exam Cardiovascular Exam: REGULAR RHYTHM, +S1, +S2 - GI/Abdominal Exam GI & Abdominal Exam: Diminished Bowel Sounds, Distended, Guarding, Soft. absent: Rebound, Rigid, Tenderness - Rectal Exam Rectal Exam: Deferred - Exam Exam: NORMAL INSPECTION - Extremities Exam Extremities exam: Positive for: pedal pulses present. Negative for: calf tenderness, pedal edema, tenderness - Back Exam Back exam: absent: CVA tenderness (L), CVA tenderness (R) - Neurological Exam Neurological exam: Alert, CN II-XII Intact, Oriented x3, Reflexes Normal - Psychiatric Exam Psychiatric exam: Depressed - Skin Skin Exam: Dry, Intact Results - Vital Signs Recent Vital Signs: Last Vital Signs Temp 97.6 F 12/09/18 07:55 Pulse 73 12/09/18 10:27 Resp 20 12/09/18 07:55 BP 121/64 12/09/18 09:50 Pulse Ox 97 12/09/18 10:27 - Labs Result Diagrams: 12/10/18 05:20 12/10/18 05:20 Labs: Laboratory Results - last 24 hr 12/09/18 12/09/18 05:40 05:40 WBC 9.6 RBC 2.78 L Hgb 9.4 L Hct 28.4 L MCV 102.1 H MCH 33.7 H MCHC 33.0 RDW 14.7 H Plt Count 187 Sodium 138 Potassium 4.6 Chloride 112 H Carbon Dioxide 16 L Anion Gap 15 BUN 27 H Creatinine 1.7 H Est GFR ( Amer) 35 Est GFR (Non-Af Amer) 29 Random Glucose 89 Calcium 9.5 Assessment & Plan (1) Bacteremia Status: Acute (2) Pyelonephritis Status: Acute - Assessment and Plan (Free Text) Assessment: sepsis/ bacteremia/pyelonephritis appears dehydrated cont IV fluids and antibiotics
[2018-12-09] MEDS: Enoxaparin 30 mg Syringe SC SCH (13:37)
[2018-12-09] MEDS: Sodium Chloride 0.9% 1,000 ML IV SCH (21:11)
[2018-12-10 06:05] LABS: BASO % 0.4 % (0.0-2.0); EOS # 0.4 K/uL (0.0-0.7); EOS % 4.4 % (0.0-4.0); HEMOGLOBIN 8.8 g/dL (12.0-16.0); LYMPH # 1.3 K/uL (1.0-4.3); LYMPH % 15.3 % (20.0-40.0); MEAN CELL VOLUME 99.7 fl (81.0-99.0); MEAN CORPUSCULAR HEMOGLOBIN 33.9 pg (27.0-31.0); MEAN PLATELET VOLUME 7.6 fl (7.2-11.7); MONO % 11.2 % (0.0-10.0); NEUT # 5.9 K/uL (1.8-7.0); NEUT % 68.7 % (50.0-75.0); RBC 2.59 Mil/uL (3.80-5.20); RED CELL DISTRIBUTION WIDTH 14.9 % (11.5-14.5); WHITE BLOOD COUNT 8.6 K/uL (4.8-10.8)
[2018-12-10 06:25] LABS: CALCIUM 9.5 mg/dL (8.4-10.2)
--- NOTE | 2018-12-10 08:21 | CP.PCM.PN ---
<Tonya Latif - Last Filed: 12/10/18 11:13> Subjective - Date & Time of Evaluation Date of Evaluation: 12/10/18 Time of Evaluation: 11:11 - Subjective Subjective: No acute overnight events. Pt seen and examined by bedside this AM. Iv abx changed yesterday, doing well and remains afebrile No concerns this AM. Eating well, tolerating PT and denies dysuria, chills, n/v Objective - Vital Signs/Intake and Output Vital Signs (last 24 hours): Temp Pulse Resp BP Pulse Ox 98.2 F 54 L 20 122/62 94 L 12/10/18 08:13 12/10/18 08:13 12/10/18 08:13 12/10/18 08:13 12/10/18 08:13 - Medications Medications: Current Medications Acetaminophen (Tylenol 325mg Tab) 650 mg PO Q6 PRN PRN Reason: Pain, Mild (1-3) Allopurinol (Zyloprim) 100 mg PO DAILY [facility] Last Admin: 12/09/18 09:50 Dose: 100 mg Carvedilol (Coreg) 6.25 mg PO Q12 [facility] Last Admin: 12/09/18 21:13 Dose: 6.25 mg Enoxaparin Sodium (Lovenox) 30 mg SC DAILY [facility]; Protocol Last Admin: 12/09/18 13:37 Dose: 30 mg Famotidine (Pepcid) 20 mg PO DAILY [facility] Ferrous Sulfate (Feosol) 325 mg PO DAILY [facility] Ceftriaxone Sodium 1 gm/ (Sodium Chloride) 100 mls @ 100 mls/hr IVPB DAILY [facility]; Protocol Last Admin: 12/09/18 13:34 Dose: 100 mls/hr Ibuprofen (Motrin Tab) 600 mg PO Q8 PRN PRN Reason: Pain, moderate (4-7) Isosorbide Mononitrate (Imdur Er) 30 mg PO DAILY [facility] Last Admin: 12/09/18 09:53 Dose: 30 mg Ketorolac Tromethamine (Toradol) 30 mg IVP Q6 PRN PRN Reason: Pain, severe (8-10) Paroxetine HCl (Paxil) 20 mg PO DAILY [facility] Last Admin: 12/09/18 09:53 Dose: 20 mg - Labs Labs: 12/10/18 05:20 12/10/18 05:20 - Constitutional Appears: No Acute Distress - Head Exam Head Exam: NORMAL INSPECTION - Eye Exam Eye Exam: Normal appearance - ENT Exam ENT Exam: Mucous Membranes Moist - Respiratory Exam Respiratory Exam: Clear to Ausculation Bilateral, NORMAL BREATHING PATTERN. absent: Wheezes - Cardiovascular Exam Cardiovascular Exam: REGULAR RHYTHM, +S1, +S2 - GI/Abdominal Exam GI & Abdominal Exam: Soft, Normal Bowel Sounds. absent: Tenderness - Extremities Exam Extremities Exam: absent: Pedal Edema - Back Exam Back Exam: absent: CVA tenderness (L), CVA tenderness (R) - Neurological Exam Neurological Exam: Alert, Oriented x3 Assessment and Plan (1) Anemia Status: Chronic (2) Bacteremia Status: Acute (3) Pyelonephritis Status: Acute (4) GERD (gastroesophageal reflux disease) Status: Chronic (5) HTN (hypertension) Status: Chronic - Assessment and Plan (Free Text) Assessment: Assessment/Plan: 83 YO Female with PMHx of HTN, GERD, IBS and diverticulosis is admitted for Pyelonephritis Workup sig for bacteriuria and bacteremia. Pyelonephritis -acute, improving -Ucx sig for E coli, sensitivity appreciated -C/w abx -ID on board follow up recs -pain management Bacteremia -acute -Bcx sig for E coli, sensitivity appreciated -c.w with IV abx Rocephin -will need PICC line for course of IV abx -ID on board, follow up recs GERD -famotidine PO daily HTN -chronic -c/w home meds Anemia, Macrocytic -chronic -c/w FeSol Plan as ordered DVT prolyx: Lovenox SC <Cristopher Jennings - Last Filed: 12/10/18 15:17> Objective - Vital Signs/Intake and Output Vital Signs (last 24 hours): Temp Pulse Resp BP Pulse Ox 98.2 F 54 L 20 122/62 94 L 12/10/18 08:13 12/10/18 08:13 12/10/18 08:13 12/10/18 08:13 12/10/18 08:13 - Medications Medications: Current Medications Acetaminophen (Tylenol 325mg Tab) 650 mg PO Q6 PRN PRN Reason: Pain, Mild (1-3) Allopurinol (Zyloprim) 100 mg PO DAILY [facility] Last Admin: 12/10/18 11:25 Dose: 100 mg Carvedilol (Coreg) 6.25 mg PO Q12 [facility] Last Admin: 12/10/18 11:26 Dose: 6.25 mg Enoxaparin Sodium (Lovenox) 30 mg SC DAILY [facility]; Protocol Last Admin: 12/10/18 11:26 Dose: 30 mg Famotidine (Pepcid) 20 mg PO DAILY [facility] Last Admin: 12/10/18 11:25 Dose: 20 mg Ferrous Sulfate (Feosol) 325 mg PO DAILY [facility] Last Admin: 12/10/18 11:25 Dose: 325 mg Ceftriaxone Sodium 1 gm/ (Sodium Chloride) 100 mls @ 100 mls/hr IVPB DAILY [facility]; Protocol Last Admin: 12/10/18 11:26 Dose: 100 mls/hr Sodium Chloride (Sodium Chloride 0.9%) 1,000 mls @ 80 mls/hr IV .[id number] [facility] Stop: 12/11/18 09:23 Last Admin: 12/10/18 11:48 Dose: 80 mls/hr Ibuprofen (Motrin Tab) 600 mg PO Q8 PRN PRN Reason: Pain, moderate (4-7) Isosorbide Mononitrate (Imdur Er) 30 mg PO DAILY [facility] Last Admin: 12/10/18 11:25 Dose: 30 mg Ketorolac Tromethamine (Toradol) 30 mg IVP Q6 PRN PRN Reason: Pain, severe (8-10) Paroxetine HCl (Paxil) 20 mg PO DAILY [facility] Last Admin: 12/10/18 11:25 Dose: 20 mg - Labs Labs: 12/10/18 05:20 12/10/18 05:20 Assessment and Plan (1) Frequent falls Status: Acute (2) Pyelonephritis Status: Acute Attending/Attestation - Attestation I have personally seen and examined this patient.: Yes I have fully participated in the care of the patient.: Yes I have reviewed all pertinent clinical information, including history, physical exam and plan: Yes
[2018-12-10] MEDS: Enoxaparin 30 mg Syringe SC SCH (11:26)
[2018-12-10] MEDS: Sodium Chloride 0.9% 1,000 ML IV SCH ×2 (11:48→22:00)
--- NOTE | 2018-12-10 12:47 | CP.PCM.PN ---
Subjective - Date & Time of Evaluation Date of Evaluation: 12/10/18 Time of Evaluation: 07:00 - Subjective Subjective: weak poor apettite no fever c/o abd discomfort and flank pain Objective - Vital Signs/Intake and Output Vital Signs (last 24 hours): Temp Pulse Resp BP Pulse Ox 98.2 F 54 L 20 122/62 94 L 12/10/18 08:13 12/10/18 08:13 12/10/18 08:13 12/10/18 08:13 12/10/18 08:13 - Medications Medications: Current Medications Acetaminophen (Tylenol 325mg Tab) 650 mg PO Q6 PRN PRN Reason: Pain, Mild (1-3) Allopurinol (Zyloprim) 100 mg PO DAILY [facility] Last Admin: 12/10/18 11:25 Dose: 100 mg Carvedilol (Coreg) 6.25 mg PO Q12 [facility] Last Admin: 12/10/18 11:26 Dose: 6.25 mg Enoxaparin Sodium (Lovenox) 30 mg SC DAILY [facility]; Protocol Last Admin: 12/10/18 11:26 Dose: 30 mg Famotidine (Pepcid) 20 mg PO DAILY [facility] Last Admin: 12/10/18 11:25 Dose: 20 mg Ferrous Sulfate (Feosol) 325 mg PO DAILY [facility] Last Admin: 12/10/18 11:25 Dose: 325 mg Ceftriaxone Sodium 1 gm/ (Sodium Chloride) 100 mls @ 100 mls/hr IVPB DAILY [facility]; Protocol Last Admin: 12/10/18 11:26 Dose: 100 mls/hr Sodium Chloride (Sodium Chloride 0.9%) 1,000 mls @ 80 mls/hr IV .[id number] [facility] Stop: 12/11/18 09:23 Last Admin: 12/10/18 11:48 Dose: 80 mls/hr Ibuprofen (Motrin Tab) 600 mg PO Q8 PRN PRN Reason: Pain, moderate (4-7) Isosorbide Mononitrate (Imdur Er) 30 mg PO DAILY [facility] Last Admin: 12/10/18 11:25 Dose: 30 mg Ketorolac Tromethamine (Toradol) 30 mg IVP Q6 PRN PRN Reason: Pain, severe (8-10) Paroxetine HCl (Paxil) 20 mg PO DAILY [facility] Last Admin: 12/10/18 11:25 Dose: 20 mg - Labs Labs: 12/10/18 05:20 12/10/18 05:20 - Constitutional Appears: Non-toxic, Chronically Ill - Head Exam Head Exam: NORMOCEPHALIC - Eye Exam Eye Exam: absent: Scleral icterus - ENT Exam ENT Exam: Mucous Membranes Dry - Neck Exam Neck Exam: absent: Lymphadenopathy - Respiratory Exam Respiratory Exam: Decreased Breath Sounds - Cardiovascular Exam Cardiovascular Exam: REGULAR RHYTHM - GI/Abdominal Exam GI & Abdominal Exam: Distended, Soft - Rectal Exam Rectal Exam: Deferred - Extremities Exam Extremities Exam: absent: Pedal Edema - Back Exam Back Exam: absent: CVA tenderness (L), CVA tenderness (R) - Neurological Exam Neurological Exam: Alert, Awake, CN II-XII Intact - Psychiatric Exam Psychiatric exam: Depressed - Skin Skin Exam: Dry Assessment and Plan (1) Bacteremia Status: Acute (2) Pyelonephritis Status: Acute - Assessment and Plan (Free Text) Assessment: cont iv antibiotics repeat cultures blood consider imaging
[2018-12-10 13:19] LABS: FOLATE 4.8 ng/mL
--- NOTE | 2018-12-10 15:36 | CT ---
Date of service: 12/10/2018 PROCEDURE: CT Abdomen and Pelvis without intravenous contrast HISTORY: Pyelonephritis COMPARISON: CT scan of the abdomen pelvis dated 06/10/2018. TECHNIQUE: Contiguous images were obtained from the domes of the diaphragms to the upper thighs without the administration of intravenous contrast. Oral contrast was not administered. Radiation dose: Total exam DLP = 452.35 mGy-cm. This CT exam was performed using one or more of the following dose reduction techniques: Automated exposure control, adjustment of the mA and/or kV according to patient size, and/or use of iterative reconstruction technique. FINDINGS: LOWER THORAX: Cardiomegaly. Coronary arterial and valvular calcifications. LIVER: Unremarkable. No gross lesion or ductal dilatation. GALLBLADDER AND BILE DUCTS: Prior cholecystectomy with surgical clips in place. PANCREAS: Unremarkable. No gross lesion or ductal dilatation. SPLEEN: Unremarkable. ADRENALS: Unremarkable. No mass. KIDNEYS AND URETERS: 4.9 cm right upper/interpolar cyst. Inflammatory change around the lower pole. No hydronephrosis. No solid mass. VASCULATURE: Unremarkable. No aortic aneurysm. Aortic atherosclerotic calcification present. BOWEL: Small hiatal hernia. Colonic diverticulosis. Small amount inflammatory change around the distal descending colon. No obstruction. No gross mural thickening. APPENDIX: Unremarkable. Normal appendix. PERITONEUM: Unremarkable. No free fluid. No free air. LYMPH NODES: Unremarkable. No enlarged lymph nodes. BLADDER: Unremarkable. REPRODUCTIVE: Unremarkable. BONES: Diffuse osteopenia. Old right pelvic fractures. No acute fracture. OTHER FINDINGS: None. IMPRESSION: Evaluation is limited in the absence of intravenous contrast. Colonic diverticulosis with small amount of inflammatory change around the distal descending colon for which acute early diverticulitis cannot be excluded. Inflammatory change around the lower pole of the right kidney for which pyelonephritis cannot be excluded. Additional findings as above.
[2018-12-11] MEDS: Sodium Chloride 0.9% 1,000 ML IV SCH ×2 (03:25→21:47)
[2018-12-11 07:04] LABS: BASO # 0.1 K/uL (0.0-0.2); BASO % 0.8 % (0.0-2.0); EOS # 0.4 K/uL (0.0-0.7); EOS % 5.4 % (0.0-4.0); HEMOGLOBIN 9.1 g/dL (12.0-16.0); LYMPH # 1.3 K/uL (1.0-4.3); LYMPH % 18.3 % (20.0-40.0); MEAN CELL VOLUME 100.8 fl (81.0-99.0); MEAN CORPUSCULAR HEMOGLOBIN 32.4 pg (27.0-31.0); MEAN CORPUSCULAR HGB CONC 32.1 g/dL (33.0-37.0); MEAN PLATELET VOLUME 8.1 fl (7.2-11.7); MONO # 0.9 K/uL (0.0-0.8); MONO % 13.8 % (0.0-10.0); NEUT # 4.2 K/uL (1.8-7.0); NEUT % 61.7 % (50.0-75.0); RBC 2.8 Mil/uL (3.80-5.20); RED CELL DISTRIBUTION WIDTH 15.4 % (11.5-14.5); WHITE BLOOD COUNT 6.9 K/uL (4.8-10.8)
[2018-12-11 07:25] LABS: CALCIUM 9.7 mg/dL (8.4-10.2)
[2018-12-11] MEDS: Enoxaparin 30 mg Syringe SC SCH (09:04)
[2018-12-12 06:24] LABS: MEAN CELL VOLUME 102.1 fl (81.0-99.0); MEAN CORPUSCULAR HEMOGLOBIN 33.1 pg (27.0-31.0); MEAN CORPUSCULAR HGB CONC 32.5 g/dL (33.0-37.0); RBC 2.71 Mil/uL (3.80-5.20); WHITE BLOOD COUNT 6.1 K/uL (4.8-10.8)
[2018-12-12 07:17] LABS: ALB/GLOB RATIO 0.5 (1.0-2.1); ALBUMIN 2.9 g/dL (3.5-5.0); CALCIUM 9.6 mg/dL (8.4-10.2)
[2018-12-12 08:07] VITALS: BP 131/65; PULSE 57; RESP 20; TEMP 98; O2SAT 96
--- NOTE | 2018-12-12 08:49 | CP.PCM.PCO ---
Physician Communication Note - Physician Communication Note Physician Communication Note: Pt requires IV antibiotics x [address] Lerma recommendation
[2018-12-12] MEDS: Enoxaparin 30 mg Syringe SC SCH (09:06)
--- NOTE | 2018-12-12 13:31 | CP.PCM.PN ---
Subjective - Date & Time of Evaluation Date of Evaluation: 12/12/18 Time of Evaluation: 08:00 - Subjective Subjective: less fever no abd pain Objective - Vital Signs/Intake and Output Vital Signs (last 24 hours): Temp Pulse Resp BP Pulse Ox 98.0 F 57 L 20 131/65 96 12/12/18 08:06 12/12/18 09:07 12/12/18 08:06 12/12/18 09:07 12/12/18 08:06 - Medications Medications: Current Medications Acetaminophen (Tylenol 325mg Tab) 650 mg PO Q6 PRN PRN Reason: Pain, Mild (1-3) Last Admin: 12/10/18 20:56 Dose: 650 mg Allopurinol (Zyloprim) 100 mg PO DAILY [facility] Last Admin: 12/12/18 09:07 Dose: 100 mg Carvedilol (Coreg) 6.25 mg PO Q12 [facility] Last Admin: 12/12/18 09:07 Dose: 6.25 mg Enoxaparin Sodium (Lovenox) 30 mg SC DAILY [facility]; Protocol Last Admin: 12/12/18 09:06 Dose: 30 mg Famotidine (Pepcid) 20 mg PO DAILY [facility] Last Admin: 12/12/18 09:07 Dose: 20 mg Ferrous Sulfate (Feosol) 325 mg PO DAILY [facility] Last Admin: 12/12/18 09:06 Dose: 325 mg Ceftriaxone Sodium 1 gm/ (Sodium Chloride) 100 mls @ 100 mls/hr IVPB DAILY [facility]; Protocol Last Admin: 12/12/18 09:06 Dose: 100 mls/hr Ibuprofen (Motrin Tab) 600 mg PO Q8 PRN PRN Reason: Pain, moderate (4-7) Isosorbide Mononitrate (Imdur Er) 30 mg PO DAILY [facility] Last Admin: 12/12/18 09:07 Dose: 30 mg Ketorolac Tromethamine (Toradol) 30 mg IVP Q6 PRN PRN Reason: Pain, severe (8-10) Paroxetine HCl (Paxil) 20 mg PO DAILY [facility] Last Admin: 12/12/18 09:07 Dose: 20 mg - Labs Labs: 12/12/18 05:30 12/12/18 05:30 - Constitutional Appears: Non-toxic, Chronically Ill - Head Exam Head Exam: NORMOCEPHALIC - Eye Exam Eye Exam: absent: Scleral icterus - ENT Exam ENT Exam: Mucous Membranes Dry - Neck Exam Neck Exam: absent: Lymphadenopathy - Respiratory Exam Respiratory Exam: Decreased Breath Sounds - Cardiovascular Exam Cardiovascular Exam: REGULAR RHYTHM - GI/Abdominal Exam GI & Abdominal Exam: Distended, Soft - Rectal Exam Rectal Exam: Deferred - Exam Exam: NORMAL INSPECTION - Extremities Exam Extremities Exam: absent: Pedal Edema - Back Exam Back Exam: absent: CVA tenderness (L), CVA tenderness (R) - Neurological Exam Neurological Exam: Alert, Awake Assessment and Plan (1) Bacteremia Status: Acute (2) Pyelonephritis Status: Acute - Assessment and Plan (Free Text) Assessment: cont iv rx for pyelo/sepsis
--- NOTE | 2018-12-13 12:16 | PQF ---
PROVIDER RESPONSE TEXT: Provider was unable to determine a response for this query. REVIEWER QUERY TEXT: Conflicting Documentation Clarification A single mention of Sepsis is listed in the ID progress note of 12/09. Please clarify if the diagnos is is: -- Confirmed and current -- Ruled out -- Other, please specify 12/08:blood culture #1: prelim no growth after 3 days 12/08 blood culture #2:final: e-coli 12/07: urine culture: final: e-coli 12/10 blood culture: prelim no growth after 24 hrs. 12/09 Resident/Attending; admitted for Pyelonephritis Workup sig for bacteriuria and bacteremia. --Pyelonephritis -acute -Ucx sig for gram neg rods -C/w abx (d.c cipro start rocephin) -ID on board f ollow up recs -pain management --Bacteremia -acute -Bcx sig for gram neg rods -follow up sensitivity -c.w with IV abx -ID on board, follow up recs 12/10 ID progress note: :presented to ED with flank pain, dysuria, and fever; sepsis/ bacteremia/pyel onephritis appears dehydrated 12/10 Resident note:remains afebrle The patient's Clinical Indicators include: --- Query created by: Laure Lugo on 12/11/2018 2:01 PM Electronically signed by: Cristopher Jennings 12/13/2018 12:13 PM
--- NOTE | 2018-12-13 14:47 | CP.PCM.PN ---
Subjective - Date & Time of Evaluation Date of Evaluation: 12/11/18 Time of Evaluation: 11:00 - Subjective Subjective: patient seen and examined at bedside. Interim events noted No complaints offered at this time denies cp/sob/fever/chills. available diagnostic data reviewed Objective Vital Signs Stable - Constitutional Appears: Non-toxic, No Acute Distress - Head Exam Head Exam: NORMAL INSPECTION - Eye Exam Eye Exam: Normal appearance - Respiratory Exam Respiratory Exam: NORMAL BREATHING PATTERN - Cardiovascular Exam Cardiovascular Exam: +S1, +S2 - GI/Abdominal Exam GI & Abdominal Exam: Soft - Neurological Exam Neurological Exam: Alert, Awake - Psychiatric Exam Psychiatric exam: Normal Affect, Normal Mood - Skin Skin Exam: Normal Color, Warm Assessment and Plan monitor vitals monitor labs Cont meds Cont tx consultants appreciated input will likely need elongated IV abx treatment rest of plan as ordered Assessment and Plan (1) Pyelonephritis Status: Acute (2) Bacteremia Status: Acute (3) Frequent falls Status: Chronic
--- NOTE | 2018-12-13 14:49 | CP.PCM.DIS ---
Provider - Provider Date of Admission: 12/09/18 10:01 Attending physician: Cristopher Jennings MD Consults: 12/08/18 21:45 Infectious Disease Consult Routine Comment: Consulting Provider: David Lerma Consulting Physician: David Lerma Reason for Consult: bacteremia Time Spent in preparation of Discharge (in minutes): 30 Diagnosis - Discharge Diagnosis (1) Pyelonephritis Status: Acute (2) Bacteremia Status: Acute (3) Frequent falls Status: Chronic Hospital Course - Lab Results Lab Results: Micro Results 12/10/18 11:01 Blood Blood Culture - Preliminary NO GROWTH AFTER 3 DAYS 12/08/18 01:11 Blood-Venous Blood Culture - Final NO GROWTH AFTER 5 DAYS 12/08/18 01:11 Blood-Venous Gram Stain - Final TEST NOT PERFORMED 12/07/18 23:25 Urine,Clean Catch Urine Culture - Final Escherichia Coli 12/08/18 01:30 Blood-Venous Blood Culture - Final Escherichia Coli 12/08/18 01:30 Blood-Venous Gram Stain - Final Most Recent Lab Values WBC 6.1 K/uL (4.8-10.8) 12/12/18 05:30 RBC 2.71 Mil/uL (3.80-5.20) L 12/12/18 05:30 Hgb 9.0 g/dL (12.0-16.0) L 12/12/18 05:30 Hct 27.6 % (34.0-47.0) L 12/12/18 05:30 MCV 102.1 fl (81.0-99.0) H 12/12/18 05:30 MCH 33.1 pg (27.0-31.0) H 12/12/18 05:30 MCHC 32.5 g/dL (33.0-37.0) L 12/12/18 05:30 RDW 15.0 % (11.5-14.5) H 12/12/18 05:30 Plt Count 240 K/uL (130-400) 12/12/18 05:30 MPV 8.1 fl (7.2-11.7) 12/11/18 05:40 Neut % (Auto) 61.7 % (50.0-75.0) 12/11/18 05:40 Lymph % (Auto) 18.3 % (20.0-40.0) L 12/11/18 05:40 Riley % (Auto) 13.8 % (0.0-10.0) H 12/11/18 05:40 Eos % (Auto) 5.4 % (0.0-4.0) H 12/11/18 05:40 Baso % (Auto) 0.8 % (0.0-2.0) 12/11/18 05:40 Neut # (Auto) 4.2 K/uL (1.8-7.0) 12/11/18 05:40 Lymph # (Auto) 1.3 K/uL (1.0-4.3) 12/11/18 05:40 Riley # (Auto) 0.9 K/uL (0.0-0.8) H 12/11/18 05:40 Eos # (Auto) 0.4 K/uL (0.0-0.7) 12/11/18 05:40 Baso # (Auto) 0.1 K/uL (0.0-0.2) 12/11/18 05:40 Sodium 139 mmol/l (132-148) 12/12/18 05:30 Potassium 4.0 MMOL/L (3.6-5.0) 12/12/18 05:30 Chloride 113 mmol/L (98-107) H 12/12/18 05:30 Carbon Dioxide 17 mmol/L (22-30) L 12/12/18 05:30 Anion Gap 13 (10-20) 12/12/18 05:30 BUN 24 mg/dl (7-17) H 12/12/18 05:30 Creatinine 1.3 mg/dl (0.7-1.2) H 12/12/18 05:30 Est GFR ( Amer) 47 12/12/18 05:30 Est GFR (Non-Af Amer) 39 12/12/18 05:30 Random Glucose 89 mg/dL (65-105) 12/12/18 05:30 Lactic Acid 0.9 MMOL/L (0.7-2.1) 12/08/18 01:11 Calcium 9.6 mg/dL (8.4-10.2) 12/12/18 05:30 Total Bilirubin 0.1 mg/dl (0.2-1.3) L 12/12/18 05:30 AST 22 U/L (14-36) 12/12/18 05:30 ALT 10 U/L (9-52) 12/12/18 05:30 Alkaline Phosphatase 49 U/L (38-126) 12/12/18 05:30 Total Protein 9.3 G/DL (6.3-8.2) H 12/12/18 05:30 Albumin 2.9 g/dL (3.5-5.0) L D 12/12/18 05:30 Globulin 6.3 gm/dL (2.2-3.9) H 12/12/18 05:30 Albumin/Globulin Ratio 0.5 (1.0-2.1) L 12/12/18 05:30 Vitamin B12 676 pg/mL (239-931) 12/10/18 05:20 Folate 4.8 ng/mL 12/10/18 05:20 Urine Color Straw (YELLOW) 12/07/18 23:25 Urine Clarity Slighty-cloudy (Clear) 12/07/18 23:25 Urine pH 6.0 (5.0-8.0) 12/07/18 23:25 Ur Specific [place]win[place] 1.009 (1.003-1.030) 12/07/18 23:25 Urine Protein 30 mg/dL (NEGATIVE) 12/07/18 23:25 Urine Glucose (UA) Neg mg/dL (NEGATIVE) 12/07/18 23:25 Urine Ketones Negative mg/dL (NEGATIVE) 12/07/18 23:25 Urine Blood Small (NEGATIVE) 12/07/18 23:25 Urine Nitrate Negative (NEGATIVE) 12/07/18 23:25 Urine Bilirubin Negative (NEGATIVE) 12/07/18 23:25 Urine Urobilinogen 0.2-1.0 mg/dL (0.2-1.0) 12/07/18 23:25 Ur Leukocyte Esterase Mod Jesús/uL (Negative) 12/07/18 23:25 Urine RBC (Auto) 5 /hpf (0-3) H 12/07/18 23:25 Urine Microscopic WBC 47 /hpf (0-5) H 12/07/18 23:25 Ur Squamous Epith Cells < 1 /hpf (0-5) 12/07/18 23:25 Urine Bacteria Rare (<OCC) 12/07/18 23:25 Stool Occult Blood Negative (NEGATIVE) 12/11/18 22:06 - Hospital Course Hospital Course: 83 yo female with PMHx of HTN, GERD, IBS and diverticulosis presented to ED with flank pain, dysuria, and fever. Patient was admitted for suspected pyelonephritis. Found to have Ecoli in urine and blood ID consulted Patient improved throughout admission Will need 7 more days of IV abx, will be discharged to TCU for further care. Discharge Exam - Head Exam Head Exam: NORMOCEPHALIC - Eye Exam Eye Exam: Normal appearance - Respiratory Exam Respiratory Exam: NORMAL BREATHING PATTERN - Cardiovascular Exam Cardiovascular Exam: +S1, +S2 - Neurological Exam Neurological exam: Alert, Oriented x3 - Psychiatric Exam Psychiatric exam: Normal Affect, Normal Mood - Skin Skin Exam: Dry, Normal Color, Warm Discharge Plan - Discharge Medications Prescriptions: cefTRIAXone 1 gm [Rocephin 1 gram IVPB (D5W)] 1 gm IVPB DAILY #7 bag - Follow Up Plan Condition: STABLE Disposition: REHAB FACILITY/REHAB UNIT Instructions: Preventing Falls in the Older Adult, Urinary Tract Infection, Adult (DC) Referrals: Vishnu Lui MD [Staff Provider] - David Lerma MD [Staff Provider] -
== END 2018-12-12 14:10 | DRG 690 ==
LOC: H.ER 22:06 → H.ERHOLD 12-08 00:45 → H.MEDSURG1 12-08 03:04 → OBSVTOIN 12-09 10:01
PROVIDERS: ADMIT Family Medicine; ATTEND Family Medicine
DX: N10 Acute pyelonephritis (principal); R78.81 Bacteremia; N18.3 Chronic kidney disease, stage 3 (moderate); B96.20 Unspecified Escherichia coli [E. coli] as the cause of diseases classified elsewhere; I12.9 Hypertensive chronic kidney disease with stage 1 through stage 4 chronic kidney disease, or unspecified chronic kidney disease; E86.0 Dehydration; I34.1 Nonrheumatic mitral (valve) prolapse; D53.9 Nutritional anemia, unspecified; I25.10 Atherosclerotic heart disease of native coronary artery without angina pectoris; K21.9 Gastro-esophageal reflux disease without esophagitis; K58.9 Irritable bowel syndrome, unspecified; K57.90 Diverticulosis of intestine, part unspecified, without perforation or abscess without bleeding; R29.6 Repeated falls; Z91.81 History of falling; Z95.5 Presence of coronary angioplasty implant and graft; Z88.2 Allergy status to sulfonamides; Z88.6 Allergy status to analgesic agent; Z91.040 Latex allergy status

== ENCOUNTER 2018-12-12 14:22 | Inpatient (IN) | payer OTHER, BC ==
[2018-12-12 14:44] VITALS: BMI 24.5
[2018-12-12] MEDS ORDERED: Tuberculin 5 Units/0.1 ml Inj ID ONE (15:32)
[2018-12-13] MEDS ORDERED: cefTRIAXone IV 1 gm in Dextros 50 ML BAG IVPB SCH (06:00)
[2018-12-13 07:23] LABS: HEMOGLOBIN 9.2 g/dL (12.0-16.0); MEAN CELL VOLUME 99.7 fl (81.0-99.0); MEAN CORPUSCULAR HEMOGLOBIN 32.8 pg (27.0-31.0); MEAN CORPUSCULAR HGB CONC 32.9 g/dL (33.0-37.0); RBC 2.82 Mil/uL (3.80-5.20); WHITE BLOOD COUNT 6.2 K/uL (4.8-10.8)
[2018-12-13 07:47] LABS: ALB/GLOB RATIO 0.5 (1.0-2.1); ALBUMIN 3.2 g/dL (3.5-5.0); CALCIUM 10.1 mg/dL (8.4-10.2)
[2018-12-13] MEDS: Enoxaparin 30 mg Syringe SC SCH (08:52)
[2018-12-14] MEDS: Enoxaparin 30 mg Syringe SC SCH (10:00)
--- NOTE | 2018-12-14 13:54 | CP.PCM.CON ---
History of Present Illness - History of Present Illness History of Present Illness: 83 yo female with PMHx of HTN, GERD, IBS and diverticulosis/itis presented to ED with flank pain, dysuria, and fever. She had positive blood and urine cultures for E Coli sensitive to Rocephin her abd pain, fever and dysuria have improved but continues to c/o CVA tenderness PMHx: HTN, GERD, IBS and diverticulosis SurgHx: thyroidectomy, total hysterextomy, lumpectomy (breast), arthoscopy (R knee), cholesectomy Allergies: asa, codeine, latex, sulfa Meds: as per chart Review of Systems - Constitutional Constitutional: Anorexia, Chills, Fever, Malaise - EENT Eyes: absent: As Per HPI, Blind Spots, Blurred Vision, Change in Vision, Decreased Night Vision, Diplopia, Discharge, Dry Eye, Exophthalmos, Floaters, Irritation, Itchy Eyes, Loss of Peripheral Vision, Pain, Photophobia, Requires Corrective Lenses, Sees Flashes, Spots in Vision, Tunnel Vision, Other Visual Disturbances, Loss of Vision, Other Ears: absent: As Per HPI, Decreased Hearing, Ear Discharge, Ear Pain, Tinnitus, Abnormal Hearing, Disequilibrium, Dizziness, Other Nose/Mouth/Throat: absent: As Per HPI, Epistaxis, Nasal Congestion, Nasal Discharge, Nasal Obstruction, Nasal Trauma, Nose Pain, Post Nasal Drip, Sinus Pain, Sinus Pressure, Bleeding Gums, Change in Voice, Dental Pain, Dry Mouth, D ysphagia, Halitosis, Hoarsness, Lip Swelling, Mouth Lesions, Mouth Pain, Odynophagia, Sore Throat, Throat Swelling, Tongue Swelling, Facial Pain, Neck Pain, Neck Mass, Other - Breasts Breasts: absent: As Per HPI, Change in Shape, Mass, Pain, Nipple Discharge, N ipple Inversion, Skin Changes, Swelling, Other - Cardiovascular Cardiovascular: absent: As Per HPI, Acrocyanosis, Chest Pain, Chest Pain at Rest, Chest Pain with Activity, Claudication, Diaphoresis, Dyspnea, Dyspnea on Exertion, Edema, Irregular Heart Rhythm, Pain Radiating to Arm/Neck/Jaw, Leg Edema, Leg Ulcers, Lightheadedness, Orthopnea, Palpitations, Paroxysmal Nocturnal Dyspnea, Pedal Edema, Radiating Pain, Rapid Heart Rate, Slow Heart Rate, Syncope, Other - Respiratory Respiratory: absent: As Per HPI, Cough, Dyspnea, Hemoptysis, Dyspnea on Exertion, Wheezing, Snoring, Stridor, Pain on Inspiration, Chest Congestion, Excessive Mucous Production, Change in Mucous Color, Pain with Coughing, Other - Gastrointestinal Gastrointestinal: absent: As Per HPI, Abdominal Pain, Belching, Bloating, Change in Bowel Habits, Change in Stool Character, Coffee Ground Emesis, Constipation, Cramping, Diarrhea, Dyspepsia, Dysphagia, Early Satiety, Excessive Flatus, Fecal Incontinence, Heartburn, Hematemesis, Hematochezia, Loose Stools, Melena, Nausea, Odynophagia, Temesmus, Vomiting, Other - Genitourinary Genitourinary: As Per HPI - Reproductive: Female Reproductive:Female: absent: As Per HPI, Amenorrhea, Amenorrhea/ Control, Currently Menstual, Cycle <21 Days, Cycle >35 Days, Cycle Variable, Menses 1-7 Days, Menses >/= 8 Days, Menses Variable, Cycle > 4 Weeks Between, No Menses for 6 Months, Heavy Menses, Light Menses, Normal Menses, Spotting Between Cycles, S/P Hysterectomy, Menopausal, Post Menopausal, Premenarche, Abnormal Vaginal Bleeding, Dysmenorrhea, Dyspareunia, Genital Lesions, Genital Pruritis, Pelvic Pain, Prolapse Symptoms, Sexual Dysfunction, Vaginal Discharge, Vaginal Dryness, Vaginal Odor, Vaginal Pruritis, Other - Menstruation Menstruation: absent: As Per HPI, Amenorrhea, Amenorrhea/ Control, Currently Menstual, Cycle <21 Days, Cycle >35 Days, Cycle Variable, Menses 1-7 Days, Menses >/= 8 Days, Menses Variable, Cycle > 4 Weeks Between, No Menses for 6 Months, Heavy Menses, Light Menses, Normal Menses, Spotting Between Cycles, S/P Hysterectomy, Menopausal, Post Menopausal, Premenarche, Abnormal Vaginal Bleeding, Dysmenorrhea, Other - Musculoskeletal Musculoskeletal: absent: As Per HPI, Abnormal Gait, Arthralgias, Atrophy, Back Pain, Deformity, Joint Swelling, Limited Range of Motion, Loss of Height, Muscle Cramps, Muscle Weakness, Myalgias, Neck Pain, Numbness, Radiating Pain into Limb, Stiffness, Tingling, Other - Integumentary Integumentary: absent: As Per HPI, Acne, Alopecia, Bleeding Lesions, Change in Hair, Change in Nails, Change in Pigmentation, Changing Lesions, Dry Skin, Erythema, Furuncle, Hirsutism, Lesions, New Lesions, Non-Healing Lesions, Photosensitivity, Pruritus, Rash, Skin Pain, Skin Ulcer, Sores, Striae, Swelli ng, Unusual Bruising, Wounds, Jaundice, Other - Neurological Neurological: absent: As Per HPI, Abnormal Gait, Abnormal Hearing, Abnormal Movements, Abnormal Speech, Behavioral Changes, Burning Sensations, Confusion, Convulsions, Disequilibrium, Dizziness, Numbness, Focal Weakness, Frequent Falls, Headaches, Lack of Coordination, Loss of Vision, Memory Loss, P aresthesias, Radicular Pain, Restless Legs, Sensory Deficit, Syncope, Tingling, Tremor, Vertigo, Weakness, Other Visual Disturbances, Other - Psychiatric Psychiatric: absent: As Per HPI, Abnormal Sleep Pattern, Anhedonia, Anxiety, Auditory Hallucinations, Behavioral Changes, Change in Appetite, Change in Libido, Confusion, Depression, Difficulty Concentrating, Hallucinations, Homicidal Ideation, Hopelessness, Irritability, Memory Loss, Mood Swings, Panic Attacks, Paranoia, Suicidal Ideation, Visual Hallucinations, Tactile Hallucinations, Other - Endocrine Endocrine: absent: As Per HPI, Change in Body Appearance, Change in Libido, Cold Intolorance, Deepening of Voice, Excessive Sweating, Fatigue, Flushing, Heat In tolorance, Increase in Ring/Shoe/Hat Size, Palpitations, Polydipsia, Polyphagia, Polyuria, Other - Hematologic/Lymphatic Hematologic: absent: As Per HPI, Easy Bleeding, Easy Bruising, Lymphadenopathy, Other Past Patient History - Past Medical History & Family History Past Medical History?: Yes - Past Social History Smoking Status: Never Smoked - CARDIAC Hx Cardiac Disorders: Yes Hx Hypertension: Yes - PULMONARY Hx Respiratory Disorders: No - NEUROLOGICAL Hx Neurological Disorder: No - HEENT Hx HEENT Problems: No - RENAL Hx Chronic Kidney Disease: Yes Other/Comment: CKD stage 3 - ENDOCRINE/METABOLIC Hx Endocrine Disorders: No - HEMATOLOGICAL/ONCOLOGICAL Hx AIDS: No Hx Human Immunodeficiency Virus (HIV): No - INTEGUMENTARY Hx Dermatological Problems: No - MUSCULOSKELETAL/RHEUMATOLOGICAL Hx Falls: Yes (fell prior to coming) - GASTROINTESTINAL Hx Gastrointestinal Disorders: Yes Hx Gastroesophageal Reflux: Yes Hx Irritable Bowel: Yes - GENITOURINARY/GYNECOLOGICAL Hx Genitourinary Disorders: No - PSYCHIATRIC Hx Depression: Yes Hx Substance Use: No - SURGICAL HISTORY Hx Surgeries: Yes Hx Cholecystectomy: Yes Hx Coronary Stent: Yes - ANESTHESIA Hx Anesthesia: Yes Hx Anesthesia Reactions: No Hx Malignant Hyperthermia: No Meds Allergies/Adverse Reactions: Allergies Allergy/AdvReac Type Severity Reaction Status Date / Time aspirin Allergy ANAPHYLAXIS Verified 06/10/18 06:02 codeine Allergy RASH Verified 06/10/18 06:02 Latex, Natural Rubber Allergy ITCHING Verified 06/10/18 06:02 Sulfa (Sulfonamide Allergy RASH Verified 06/10/18 06:02 Antibiotics) - Medications Medications: Current Medications Acetaminophen (Tylenol 325mg Tab) 650 mg PO Q6 PRN PRN Reason: Pain, moderate (4-7) Last Admin: 12/14/18 13:35 Dose: 650 mg Allopurinol (Zyloprim) 100 mg PO DAILY [facility] Last Admin: 12/14/18 10:08 Dose: 100 mg Carvedilol (Coreg) 3.125 mg PO Q12 [facility] Enoxaparin Sodium (Lovenox) 30 mg SC DAILY [facility]; Protocol Last Admin: 12/14/18 10:00 Dose: 30 mg Famotidine (Pepcid) 20 mg PO DAILY [facility] Last Admin: 12/14/18 10:07 Dose: 20 mg Ferrous Sulfate (Feosol) 325 mg PO DAILY [facility] Last Admin: 12/14/18 10:00 Dose: 325 mg Ceftriaxone Sodium 1 gm/ (Sodium Chloride) 100 mls @ 100 mls/hr IVPB DAILY [facility] Last Admin: 12/14/18 10:13 Dose: 100 mls/hr Isosorbide Mononitrate (Imdur Er) 30 mg PO DAILY [facility] Last Admin: 12/14/18 13:33 Dose: 30 mg Paroxetine HCl (Paxil) 20 mg PO DAILY [facility] Last Admin: 12/14/18 10:07 Dose: 20 mg Physical Exam - Constitutional Appears: Non-toxic, Chronically Ill - Head Exam Head Exam: ATRAUMATIC, NORMAL INSPECTION, NORMOCEPHALIC - Eye Exam Eye Exam: EOMI, PERRL. absent: Scleral icterus - ENT Exam ENT Exam: Mucous Membranes Dry, Normal External Ear Exam - Neck Exam Neck exam: Negative for: Lymphadenopathy - Respiratory Exam Respiratory Exam: Decreased Breath Sounds, Prolonged Expiratory Phase, Rhonchi - Cardiovascular Exam Cardiovascular Exam: REGULAR RHYTHM, +S1, +S2 - GI/Abdominal Exam GI & Abdominal Exam: Diminished Bowel Sounds, Soft. absent: Mass, Rigid, Tenderness - Rectal Exam Rectal Exam: Deferred - Exam Exam: NORMAL INSPECTION - Extremities Exam Extremities exam: Positive for: pedal pulses present. Negative for: calf tender ness, pedal edema, tenderness - Back Exam Back exam: CVA tenderness (R). absent: CVA tenderness (L), paraspinal tenderness - Neurological Exam Neurological exam: Alert, CN II-XII Intact, Oriented x3, Reflexes Normal - Psychiatric Exam Psychiatric exam: Depressed - Skin Skin Exam: Dry Results - Vital Signs Recent Vital Signs: Last Vital Signs Temp 98.1 F 12/14/18 10:40 Pulse 52 L 12/14/18 10:40 Resp 20 12/14/18 10:40 BP 131/66 12/14/18 10:40 Pulse Ox 96 12/14/18 10:40 - Labs Result Diagrams: 12/13/18 06:15 12/13/18 06:15 Assessment & Plan (1) Bacteremia Status: Acute (2) Pyelonephritis Status: Acute - Assessment and Plan (Free Text) Assessment: 83 yo female with PMHx of HTN, GERD, IBS and diverticulosis/itis presented to ED with flank pain, dysuria, and fever. She had positive blood and urine cultures for E Coli sensitive to Rocephin her abd pain, fever and dysuria have improved but continues to c/o CVA tenderness Would cont IV rx for at least 7 more days then PO rx Consider eval as out pt
--- NOTE | 2018-12-15 01:27 | CP.PCM.HP ---
History of Present Illness - History of Present Illness History of Present Illness: This is an 83 y/o female with hx of HTN IBS and diverticulosis was treated for pyelonephritis and transferred to TCU for therapy and continuation of iv antibiotics, She has been stable till she started having sx of dysuria and fever. She responded to the IV antibiotics. Present on Admission - Present on Admission Any Indicators Present on Admission: No History of DVT/PE: No History of Uncontrolled Diabetes: No Urinary Catheter: No Decubitus Ulcer Present: No Past Patient History - Past Medical History & Family History Past Medical History?: Yes - Past Social History Smoking Status: Never Smoked - CARDIAC Hx Cardiac Disorders: Yes Hx Hypertension: Yes - PULMONARY Hx Respiratory Disorders: No - NEUROLOGICAL Hx Neurological Disorder: No - HEENT Hx HEENT Problems: No - RENAL Hx Chronic Kidney Disease: Yes Other/Comment: CKD stage 3 - ENDOCRINE/METABOLIC Hx Endocrine Disorders: No - HEMATOLOGICAL/ONCOLOGICAL Hx AIDS: No Hx Human Immunodeficiency Virus (HIV): No - INTEGUMENTARY Hx Dermatological Problems: No - MUSCULOSKELETAL/RHEUMATOLOGICAL Hx Falls: Yes (fell prior to coming) - GASTROINTESTINAL Hx Gastrointestinal Disorders: Yes Hx Gastroesophageal Reflux: Yes Hx Irritable Bowel: Yes - GENITOURINARY/GYNECOLOGICAL Hx Genitourinary Disorders: No - PSYCHIATRIC Hx Depression: Yes Hx Substance Use: No - SURGICAL HISTORY Hx Surgeries: Yes Hx Cholecystectomy: Yes Hx Coronary Stent: Yes - ANESTHESIA Hx Anesthesia: Yes Hx Anesthesia Reactions: No Hx Malignant Hyperthermia: No Meds Allergies/Adverse Reactions: Allergies Allergy/AdvReac Type Severity Reaction Status Date / Time aspirin Allergy ANAPHYLAXIS Verified 06/10/18 06:02 codeine Allergy RASH Verified 06/10/18 06:02 Latex, Natural Rubber Allergy ITCHING Verified 06/10/18 06:02 Sulfa (Sulfonamide Allergy RASH Verified 06/10/18 06:02 Antibiotics) Physical Exam - Head Exam Head Exam: NORMAL INSPECTION - Eye Exam Eye Exam: Normal appearance - Respiratory Exam Respiratory Exam: Clear to Auscultation Bilateral - Cardiovascular Exam Cardiovascular Exam: REGULAR RHYTHM - GI/Abdominal Exam GI & Abdominal Exam: Normal Bowel Sounds - Neurological Exam Neurological exam: CN II-XII Intact, Oriented x3 Results - Vital Signs Recent Vital Signs: Last Vital Signs Temp 98.4 F 12/14/18 19:53 Pulse 56 L 12/14/18 19:53 Resp 20 12/14/18 19:53 BP 109/63 01/27/19 19:53 Pulse Ox 93 L 12/14/18 19:53 - Labs Result Diagrams: 12/13/18 06:15 12/13/18 06:15 Assessment & Plan (1) Pyelonephritis Status: Acute (2) GERD (gastroesophageal reflux disease) Status: Chronic (3) HTN (hypertension) Status: Chronic - Assessment and Plan (Free Text) Assessment: Cont meds Cont iv antibiotics start Phys therapy
--- NOTE | 2018-12-15 01:31 | CP.PCM.PN ---
Subjective - Date & Time of Evaluation Date of Evaluation: 12/14/18 Time of Evaluation: 14:00 - Subjective Subjective: Patient is doing very well with PT On iv antibiotics Has no fever. Objective - Vital Signs/Intake and Output Vital Signs (last 24 hours): Temp Pulse Resp BP Pulse Ox 98.4 F 56 L 20 109/63 93 L 12/14/18 19:53 12/14/18 19:53 12/14/18 19:53 12/14/18 19:53 12/14/18 19:53 - Medications Medications: Current Medications Acetaminophen (Tylenol 325mg Tab) 650 mg PO Q6 PRN PRN Reason: Pain, moderate (4-7) Last Admin: 12/14/18 13:35 Dose: 650 mg Allopurinol (Zyloprim) 100 mg PO DAILY [facility] Last Admin: 12/14/18 10:08 Dose: 100 mg Carvedilol (Coreg) 3.125 mg PO Q12 [facility] Enoxaparin Sodium (Lovenox) 30 mg SC DAILY [facility]; Protocol Last Admin: 12/14/18 10:00 Dose: 30 mg Famotidine (Pepcid) 20 mg PO DAILY [facility] Last Admin: 12/14/18 10:07 Dose: 20 mg Ferrous Sulfate (Feosol) 325 mg PO DAILY [facility] Last Admin: 12/14/18 10:00 Dose: 325 mg Ceftriaxone Sodium 1 gm/ (Sodium Chloride) 100 mls @ 100 mls/hr IVPB DAILY [facility] Last Admin: 12/14/18 10:13 Dose: 100 mls/hr Isosorbide Mononitrate (Imdur Er) 30 mg PO DAILY [facility] Last Admin: 12/14/18 13:33 Dose: 30 mg Paroxetine HCl (Paxil) 20 mg PO DAILY [facility] Last Admin: 12/14/18 10:07 Dose: 20 mg - Labs Labs: 12/13/18 06:15 12/13/18 06:15 - Eye Exam Eye Exam: Normal appearance - ENT Exam ENT Exam: Mucous Membranes Moist - Respiratory Exam Respiratory Exam: Clear to Ausculation Bilateral - Cardiovascular Exam Cardiovascular Exam: REGULAR RHYTHM - GI/Abdominal Exam GI & Abdominal Exam: Normal Bowel Sounds Assessment and Plan (1) Pyelonephritis Status: Acute (2) GERD (gastroesophageal reflux disease) Status: Chronic (3) HTN (hypertension) Status: Chronic - Assessment and Plan (Free Text) Plan: Cont meds Cont tx Cont iv antibiotics
[2018-12-15] MEDS: Enoxaparin 30 mg Syringe SC SCH (08:14)
[2018-12-16] MEDS: Enoxaparin 30 mg Syringe SC SCH (09:19)
[2018-12-16 16:27] VITALS: RESP 20
[2018-12-17] MEDS: Enoxaparin 30 mg Syringe SC SCH (08:06)
--- NOTE | 2018-12-17 08:40 | CP.PCM.PN ---
Subjective - Date & Time of Evaluation Date of Evaluation: 12/16/18 Time of Evaluation: 11:00 - Subjective Subjective: patient remains stable Has no fever On her 4th day of IV antibiotics Objective - Vital Signs/Intake and Output Vital Signs (last 24 hours): Temp Pulse Resp BP Pulse Ox 98.2 F 61 20 128/65 98 12/17/18 07:48 12/17/18 08:05 12/17/18 07:48 12/17/18 08:05 12/17/18 07:48 - Medications Medications: Current Medications Acetaminophen (Tylenol 325mg Tab) 650 mg PO Q6 PRN PRN Reason: Pain, moderate (4-7) Last Admin: 12/16/18 20:50 Dose: 650 mg Allopurinol (Zyloprim) 100 mg PO DAILY [facility] Last Admin: 12/17/18 08:08 Dose: 100 mg Carvedilol (Coreg) 3.125 mg PO Q12 [facility] Last Admin: 12/17/18 08:05 Dose: 3.125 mg Enoxaparin Sodium (Lovenox) 30 mg SC DAILY [facility]; Protocol Last Admin: 12/17/18 08:06 Dose: 30 mg Famotidine (Pepcid) 20 mg PO DAILY [facility] Last Admin: 12/17/18 08:07 Dose: 20 mg Ferrous Sulfate (Feosol) 325 mg PO DAILY [facility] Last Admin: 12/17/18 08:05 Dose: 325 mg Ceftriaxone Sodium 1 gm/ (Sodium Chloride) 100 mls @ 100 mls/hr IVPB DAILY [facility] Last Admin: 12/17/18 08:07 Dose: 100 mls/hr Isosorbide Mononitrate (Imdur Er) 30 mg PO DAILY [facility] Last Admin: 12/17/18 08:06 Dose: 30 mg Paroxetine HCl (Paxil) 20 mg PO DAILY [facility] Last Admin: 12/17/18 08:07 Dose: 20 mg - Labs Labs: 12/13/18 06:15 12/13/18 06:15 - Head Exam Head Exam: NORMAL INSPECTION - Eye Exam Eye Exam: Normal appearance - ENT Exam ENT Exam: Mucous Membranes Moist - Respiratory Exam Respiratory Exam: Clear to Ausculation Bilateral - Cardiovascular Exam Cardiovascular Exam: REGULAR RHYTHM - GI/Abdominal Exam GI & Abdominal Exam: Normal Bowel Sounds Assessment and Plan (1) Pyelonephritis Status: Acute (2) GERD (gastroesophageal reflux disease) Status: Chronic (3) HTN (hypertension) Status: Chronic - Assessment and Plan (Free Text) Plan: Cont meds Cont iv antibiotics cont PT
--- NOTE | 2018-12-18 02:44 | CP.PCM.PN ---
Subjective - Date & Time of Evaluation Date of Evaluation: 12/17/18 Time of Evaluation: 09:30 - Subjective Subjective: Pt seen and assessed at bedside. Reports doing well. Currently on IV antibiotics for pyelonephritis. Review of Systems - Review of Systems All systems: reviewed and no additional remarkable complaints except (occasional flank pain.) Objective - Vital Signs/Intake and Output Vital Signs (last 24 hours): Temp Pulse Resp BP Pulse Ox 98.7 F 64 20 119/65 94 L 12/17/18 21:42 12/17/18 21:42 12/17/18 21:42 12/17/18 21:42 12/17/18 21:42 - Medications Medications: Current Medications Acetaminophen (Tylenol 325mg Tab) 650 mg PO Q6 PRN PRN Reason: Pain, moderate (4-7) Last Admin: 12/17/18 22:44 Dose: 650 mg Allopurinol (Zyloprim) 100 mg PO DAILY [facility] Last Admin: 12/17/18 08:08 Dose: 100 mg Carvedilol (Coreg) 3.125 mg PO Q12 [facility] Last Admin: 12/17/18 21:23 Dose: 3.125 mg Enoxaparin Sodium (Lovenox) 30 mg SC DAILY [facility]; Protocol Last Admin: 12/17/18 08:06 Dose: 30 mg Famotidine (Pepcid) 20 mg PO DAILY [facility] Last Admin: 12/17/18 08:07 Dose: 20 mg Ferrous Sulfate (Feosol) 325 mg PO DAILY [facility] Last Admin: 12/17/18 08:05 Dose: 325 mg Ceftriaxone Sodium 1 gm/ (Sodium Chloride) 100 mls @ 100 mls/hr IVPB DAILY [facility] Last Admin: 12/17/18 08:07 Dose: 100 mls/hr Isosorbide Mononitrate (Imdur Er) 30 mg PO DAILY [facility] Last Admin: 12/17/18 08:06 Dose: 30 mg Paroxetine HCl (Paxil) 20 mg PO DAILY [facility] Last Admin: 12/17/18 08:07 Dose: 20 mg - Labs Labs: 12/13/18 06:15 12/13/18 06:15 - Constitutional Appears: Well - Head Exam Head Exam: NORMOCEPHALIC - Eye Exam Eye Exam: Normal appearance, PERRL Pupil Exam: PERRL - ENT Exam ENT Exam: Mucous Membranes Moist - Neck Exam Neck Exam: Full ROM - Respiratory Exam Respiratory Exam: Clear to Ausculation Bilateral - Cardiovascular Exam Cardiovascular Exam: REGULAR RHYTHM, +S1, +S2 - GI/Abdominal Exam GI & Abdominal Exam: Soft, Normal Bowel Sounds - Extremities Exam Extremities Exam: Full ROM - Back Exam Back Exam: CVA tenderness (R) Additional comments: minimal, occasional, CVA tenderness to the right side. - Neurological Exam Neurological Exam: Alert, Awake, Oriented x3 - Psychiatric Exam Psychiatric exam: Normal Mood - Skin Skin Exam: Dry, Normal Color Assessment and Plan (1) Pyelonephritis Assessment & Plan: Assessment/Impression/Major Problems Now: 1.) Pyelonephritis -Currently on Rocephin IVPB. -pt reports doing well, with minimal right sided CVA tenderness intermittently. -for possible d/c after 7 days of IV antibiotics, then switch antibiotics to PO. Status: Acute
[2018-12-18] MEDS: Enoxaparin 30 mg Syringe SC SCH (12:23)
--- NOTE | 2018-12-18 17:51 | CP.PCM.PN ---
Subjective - Date & Time of Evaluation Date of Evaluation: 12/18/18 Time of Evaluation: 11:00 - Subjective Subjective: patient seen and examined at bedside. Interim events noted No complaints offered at this time denies cp/sob/fever/chills. available diagnostic data reviewed Review of Systems All systems: reviewed and no additional remarkable complaints except mentioned above Objective Vital Signs Stable - Constitutional Appears: Non-toxic, No Acute Distress - Head Exam Head Exam: NORMAL INSPECTION - Eye Exam Eye Exam: Normal appearance - Respiratory Exam Respiratory Exam: NORMAL BREATHING PATTERN - Cardiovascular Exam Cardiovascular Exam: +S1, +S2 - GI/Abdominal Exam GI & Abdominal Exam: Soft - Neurological Exam Neurological Exam: Alert, Awake - Psychiatric Exam Psychiatric exam: Normal Affect, Normal Mood - Skin Skin Exam: Normal Color, Warm Assessment and Plan monitor vitals monitor labs Cont meds Cont tx consultants appreciated input rest of plan as ordered Objective - Vital Signs/Intake and Output Vital Signs (last 24 hours): Temp Pulse Resp BP Pulse Ox 97.8 F 65 20 150/73 97 12/18/18 17:10 12/18/18 17:10 12/18/18 17:10 12/18/18 17:10 12/18/18 17:10 - Medications Medications: Current Medications Acetaminophen (Tylenol 325mg Tab) 650 mg PO Q6 PRN PRN Reason: Pain, moderate (4-7) Last Admin: 12/18/18 08:05 Dose: 650 mg Allopurinol (Zyloprim) 100 mg PO DAILY [facility] Last Admin: 12/18/18 08:07 Dose: 100 mg Carvedilol (Coreg) 3.125 mg PO Q12 [facility] Last Admin: 12/18/18 08:06 Dose: 3.125 mg Enoxaparin Sodium (Lovenox) 30 mg SC DAILY [facility]; Protocol Last Admin: 12/18/18 12:23 Dose: 30 mg Famotidine (Pepcid) 20 mg PO DAILY [facility] Last Admin: 12/18/18 08:07 Dose: 20 mg Ferrous Sulfate (Feosol) 325 mg PO DAILY [facility] Last Admin: 12/18/18 08:07 Dose: 325 mg Ceftriaxone Sodium 1 gm/ (Sodium Chloride) 100 mls @ 100 mls/hr IVPB DAILY [facility] Last Admin: 12/18/18 08:04 Dose: 100 mls/hr Isosorbide Mononitrate (Imdur Er) 30 mg PO DAILY [facility] Last Admin: 12/18/18 08:06 Dose: 30 mg Paroxetine HCl (Paxil) 20 mg PO DAILY [facility] Last Admin: 12/18/18 08:07 Dose: 20 mg - Labs Labs: 12/13/18 06:15 12/13/18 06:15 Assessment and Plan (1) Bacteremia Status: Acute (2) Frequent falls Status: Chronic
--- NOTE | 2018-12-18 17:52 | CP.PCM.PN ---
Subjective - Date & Time of Evaluation Date of Evaluation: 12/15/18 Time of Evaluation: 11:00 - Subjective Subjective: patient seen and examined at bedside. Interim events noted No complaints offered at this time denies cp/sob/fever/chills. available diagnostic data reviewed Review of Systems All systems: reviewed and no additional remarkable complaints except mentioned above Objective Vital Signs Stable - Constitutional Appears: Non-toxic, No Acute Distress - Head Exam Head Exam: NORMAL INSPECTION - Eye Exam Eye Exam: Normal appearance - Respiratory Exam Respiratory Exam: NORMAL BREATHING PATTERN - Cardiovascular Exam Cardiovascular Exam: +S1, +S2 - GI/Abdominal Exam GI & Abdominal Exam: Soft - Neurological Exam Neurological Exam: Alert, Awake - Psychiatric Exam Psychiatric exam: Normal Affect, Normal Mood - Skin Skin Exam: Normal Color, Warm Assessment and Plan monitor vitals monitor labs Cont meds Cont tx consultants appreciated input rest of plan as ordered Assessment and Plan (1) Bacteremia Status: Acute (2) Frequent falls Status: Chronic
[2018-12-19] MEDS: Enoxaparin 30 mg Syringe SC SCH (09:42)
[2018-12-20 08:06] VITALS: BP 120/61; PULSE 70; TEMP 98.1; O2SAT 98
[2018-12-20] MEDS: Enoxaparin 30 mg Syringe SC SCH (08:29)
== END 2018-12-20 13:39 | disposition home health service (06) | DRG 690 ==
LOC: H.TCU 14:44
PROVIDERS: ADMIT Family Medicine; ATTEND Family Medicine
PROC: F08Z3ZZ Feeding/Eating Treatment (ICD-10-PCS; principal; 2018-12-12)
PROC: F08Z2ZZ Grooming/Personal Hygiene Treatment (ICD-10-PCS; 2018-12-12)
PROC: F08Z1ZZ Dressing Techniques Treatment (ICD-10-PCS; 2018-12-12)
PROC: F07Z9ZZ Gait Training/Functional Ambulation Treatment (ICD-10-PCS; 2018-12-12)
PROC: F07L6GZ Therapeutic Exercise Treatment of Musculoskeletal System - Lower Back / Lower Extremity using Aerobic Endurance and Conditioning Equipment (ICD-10-PCS; 2018-12-12)
DX: N12 Tubulo-interstitial nephritis, not specified as acute or chronic (principal); R78.81 Bacteremia; I12.9 Hypertensive chronic kidney disease with stage 1 through stage 4 chronic kidney disease, or unspecified chronic kidney disease; N18.3 Chronic kidney disease, stage 3 (moderate); B96.20 Unspecified Escherichia coli [E. coli] as the cause of diseases classified elsewhere; R29.6 Repeated falls; K21.9 Gastro-esophageal reflux disease without esophagitis; K58.9 Irritable bowel syndrome, unspecified; Z88.2 Allergy status to sulfonamides; Z88.6 Allergy status to analgesic agent; Z91.040 Latex allergy status; F32.9 Major depressive disorder, single episode, unspecified

== ENCOUNTER 2019-02-25 20:16 | Inpatient (IN) | payer MEDICARE, BC ==
[2019-02-25 20:16] VITALS: BMI 24.5
--- NOTE | 2019-02-25 22:26 | ED PDOC ---
HPI: General Adult Time Seen by Provider: 02/25/19 21:25 Chief Complaint (Nursing): Abnormal Labs Chief Complaint (Provider): Abnormal Labs History Per: Patient History/Exam Limitations: no limitations Onset/Duration Of Symptoms: Days (x2) Current Symptoms Are (Timing): Still Present Additional Complaint(s): 83 year old female presents to the ED as per Dr. Jennings referral for abnormal labs. Patient states that she was recently admitted for sepsis, and after discha rge her kidney function worsened, prompting follow up blood work with her PMD two days ago. Today, patient was contacted and informed her potassium levels were high and needed to come to the ED. Currently, patient is complaining of generalized pain including her arms and abdomen. PMD: Cristopher Jennings Past Medical History Reviewed: Historical Data, Nursing Documentation, Vital Signs Vital Signs: Last Vital Signs Temp 98.4 F 02/25/19 21:21 Pulse 48 L 02/25/19 21:21 Resp 17 02/25/19 21:21 BP 132/64 02/25/19 21:21 Pulse Ox 95 02/25/19 21:21 - Medical History PMH: CAD, Depression, Hiatal Hernia, HTN, Mitral Valve Prolapse, Chronic Kidney Disease Denies: HIV - Surgical History Surgical History: Cholecystectomy, Coronary Stent - Family History Family History: States: Unknown Family Hx - Social History Current smoker - smoking cessation education provided: No Alcohol: None Drugs: Denies - Home Medications Home Medications: Ambulatory Orders Medication Instructions Recorded Paroxetine HCl [Paxil] 20 mg PO QOTHERDAY 03/16/15 Carvedilol [Coreg] 6.25 mg PO Q12 06/10/18 Isosorbide Mononitrate ER [Imdur 30 mg PO DAILY 06/10/18 ER] Ferrous Sulfate [Feosol] 325 mg PO DAILY tab 12/12/18 Ranitidine HCl [Heartburn Relief] 150 mg PO BID 02/26/19 - Allergies Allergies/Adverse Reactions: Allergies Allergy/AdvReac Type Severity Reaction Status Date / Time aspirin Allergy ANAPHYLAXIS Verified 06/10/18 06:02 codeine Allergy RASH Verified 06/10/18 06:02 Latex, Natural Rubber Allergy ITCHING Verified 06/10/18 06:02 Sulfa (Sulfonamide Allergy RASH Verified 06/10/18 06:02 Antibiotics) Review of Systems ROS Statement: Except As Marked, All Systems Reviewed And Found Negative Constitutional: Positive for: Other (generalized pain) Physical Exam - Reviewed Nursing Documentation Reviewed: Yes Vital Signs Reviewed: Yes - Physical Exam Appears: Positive for: No Acute Distress Head Exam: Positive for: ATRAUMATIC, NORMOCEPHALIC Skin: Positive for: Normal Color, Warm, Dry. Negative for: Rash Eye Exam: Positive for: Normal appearance Neck: Positive for: Normal, Painless ROM, Supple Cardiovascular/Chest: Positive for: Bradycardia Respiratory: Positive for: Normal Breath Sounds. Negative for: Respiratory Distress Gastrointestinal/Abdominal: Positive for: Normal Exam, Soft. Negative for: Tenderness Back: Positive for: Normal Inspection Neurological/Psych: Positive for: Awake, Alert, Oriented (x3) - Laboratory Results Result Diagrams: 02/25/19 22:57 02/26/19 04:18 - ECG O2 Sat by Pulse Oximetry: 95 (RA) Pulse Ox Interpretation: Normal Medical Decision Making Medical Decision Making: Time: 2206 Initial Impression: high potassium levels rule out acute kidney failure, EKG changes or other electrolyte abnormality Initial Plan: --EKG --CMP --CBC with differential 0 Patient care signed out to Dr. Quiñonez pending workup and reevaluation. Scribe Attestation: Documented by Whit Badillo, acting as a scribe for Anne Quintanilla MD. Provider Scribe Attestation: All medical record entries made by the Scribe were at my direction and personally dictated by me. I have reviewed the chart and agree that the record accurately reflects my personal performance of the history, physical exam, medical decision making, and the department course for this patient. I have also personally directed, reviewed, and agree with the discharge instructions and disposition. Disposition - Clinical Impression Clinical Impression: Hyperkalemia - Patient ED Disposition Is Patient to be Admitted: Transfer of Care Counseled Patient/Family Regarding: Studies Performed, Diagnosis - Disposition Disposition: Transfer of Care Disposition Time: 23:00 Condition: STABLE Patient Signed Over To: Reza Quiñonez
[2019-02-25 23:01] LABS: BASO # 0.1 K/uL (0.0-0.2); BASO % 1.3 % (0.0-2.0); EOS # 0.4 K/uL (0.0-0.7); EOS % 6.1 % (0.0-4.0); HEMOGLOBIN 9.4 g/dL (12.0-16.0); LYMPH # 1.8 K/uL (1.0-4.3); LYMPH % 25.8 % (20.0-40.0); MEAN CELL VOLUME 98.6 fl (81.0-99.0); MEAN CORPUSCULAR HEMOGLOBIN 32.8 pg (27.0-31.0); MEAN CORPUSCULAR HGB CONC 33.3 g/dL (33.0-37.0); MEAN PLATELET VOLUME 7.9 fl (7.2-11.7); MONO # 0.7 K/uL (0.0-0.8); MONO % 10.9 % (0.0-10.0); NEUT # 3.9 K/uL (1.8-7.0); NEUT % 55.9 % (50.0-75.0); NRBC % 0.1 % (0.0-0.0); RBC 2.86 Mil/uL (3.80-5.20); RED CELL DISTRIBUTION WIDTH 17.9 % (11.5-14.5); WHITE BLOOD COUNT 6.9 K/uL (4.8-10.8)
--- NOTE | 2019-02-25 23:29 | ED PDOC ---
- Laboratory Results Result Diagrams: 02/25/19 22:57 02/26/19 04:18 - ECG O2 Sat by Pulse Oximetry: 95 (RA) Pulse Ox Interpretation: Normal Medical Decision Making Medical Decision Makin:00 Patient signed out to this provider by Dr. Quintanilla pending labs, re-evaluation and final disposition. Patient is in no distress with stable vitals at time of handoff. 2:30 Patient re-evaluated at bedside, patient has acutely worsening renal function with Cr of 3.3 and hyperkalemia of 5.6. Will correct K given worsening renal function with potential to worsen if not corrected with Calcium, Insulin/D50, and Kayexelate. 4:00 Patient stated that she was feeling weak. FS was in 30's, D50 x 2 given with good response. Will recheck for possible over-correction. 6:00 Patient much improved, states she feels weak still but not nearly as weak as before. 7:[address] Jennings who accepts admission. Scribe Attestation: Documented by Nikia Doty, acting as a scribe for Reza Quiñonez MD Provider Scribe Attestation: All medical record entries made by the Scribe were at my direction and personally dictated by me. I have reviewed the chart and agree that the record accurately reflects my personal performance of the history, physical exam, medical decision making, and the department course for this patient. I have also personally directed, reviewed, and agree with the discharge instructions and disposition. Disposition - Clinical Impression Clinical Impression: Hyperkalemia - POA Present On Arrival: None - Disposition Disposition: Hospitalized as Observation Patient Disposition Time: 07:00 Condition: FAIR
[2019-02-26 01:04] LABS: ALBUMIN 3.9 g/dL (3.5-5.0); CALCIUM 10.8 mg/dL (8.4-10.2)
[2019-02-26 01:13] LABS: ALB/GLOB RATIO 0.5 (1.0-2.1)
[2019-02-26] MEDS ORDERED: Insulin Regular 100 units/ml IV STA (01:49)
[2019-02-26] MEDS ORDERED: Dextrose 50% SYRINGE Inj (50 ml) IVP ONE ×3 (01:49→04:20)
[2019-02-26] MEDS ORDERED: Dextrose 50% SYRINGE Inj (50 ml) ONE ×2 (02:16→03:56)
[2019-02-26] MEDS ORDERED: Insulin Regular 100 units/ml ONE (02:26)
[2019-02-26 06:06] LABS: ALB/GLOB RATIO 0.5 (1.0-2.1); ALBUMIN 3.9 g/dL (3.5-5.0); ALT/SGPT < 6 U/L (9-52); AST/SGOT 51 U/L (14-36); BLOOD UREA NITROGEN 67 mg/dl (7-17); CALCIUM 11.9 mg/dL (8.4-10.2); GFR NON-AFRICAN AMERICAN 15
[2019-02-26 06:24] LABS: ABG ALLEN TEST YES; ARTERIAL BLOOD GAS HCO3 17.6 mmol/L (21-28); ARTERIAL BLOOD GAS O2 SAT 99.8 % (95-98); ARTERIAL BLOOD GAS PCO2 30 mm/Hg (35-45); ARTERIAL BLOOD GAS PH 7.32 (7.35-7.45); ARTERIAL BLOOD GAS PO2 75 mm/Hg (80-100); ARTERIAL BLOOD GAS TCO2 16.4 mmol/L (22-28)
--- NOTE | 2019-02-26 14:17 | RAD ---
Date of service: 02/26/2019 HISTORY: weakness COMPARISON: 01/24/2015 TECHNIQUE: 1 view obtained. FINDINGS: LUNGS: No active pulmonary disease. PLEURA: No significant pleural effusion identified, no pneumothorax apparent. CARDIOVASCULAR: No aortic atherosclerotic calcification present. Normal cardiac size. No pulmonary vascular congestion. OSSEOUS STRUCTURES: No significant abnormalities. VISUALIZED UPPER ABDOMEN: Normal. OTHER FINDINGS: None. IMPRESSION: No active disease.
--- NOTE | 2019-02-26 18:34 | CP.PCM.HP ---
History of Present Illness - History of Present Illness History of Present Illness: 83 y/o female with hx of HTN IBS and diverticulosis was recently treated for acute pyelonephritis with mild ABI presented to ED with worsening renal failure and hyperkalemia. Patient was seen and evaluated in ED hyperkalemia was treated with insulin/d50 hypoglycemia was treated with additional d50 Patient seen and examined at bedside. Patient states improvement from ED admission. Denies chest pain, sob, abdominal pain, headaches. Meds: as per chart Allergies: as per chart Fam hx: as per chart Present on Admission - Present on Admission Any Indicators Present on Admission: No Review of Systems - Review of Systems All systems: reviewed and no additional remarkable complaints except (mentioned in HPI) Past Patient History - Past Medical History & Family History Past Medical History?: Yes Past Family History: Reviewed and not pertinent - Past Social History Alcohol: None Drugs: Denies - CARDIAC Hx Hypertension: Yes Hx Mitral Valve Prolapse: Yes - PULMONARY Hx Respiratory Disorders: No - NEUROLOGICAL Hx Neurological Disorder: No - HEENT Hx HEENT Problems: No - RENAL Hx Chronic Kidney Disease: Yes - ENDOCRINE/METABOLIC Hx Endocrine Disorders: No - HEMATOLOGICAL/ONCOLOGICAL Hx Human Immunodeficiency Virus (HIV): No - INTEGUMENTARY Hx Dermatological Problems: No - MUSCULOSKELETAL/RHEUMATOLOGICAL Hx Musculoskeletal Disorders: Yes - GASTROINTESTINAL Hx Gastrointestinal Disorders: Yes Hx Gastroesophageal Reflux: Yes Hx Irritable Bowel: Yes - GENITOURINARY/GYNECOLOGICAL Hx Genitourinary Disorders: No - PSYCHIATRIC Hx Depression: Yes - SURGICAL HISTORY Hx Cholecystectomy: Yes Hx Coronary Stent: Yes - ANESTHESIA Hx Anesthesia: Yes Hx Anesthesia Reactions: No Hx Malignant Hyperthermia: No Meds Allergies/Adverse Reactions: Allergies Allergy/AdvReac Type Severity Reaction Status Date / Time aspirin Allergy ANAPHYLAXIS Verified 06/10/18 06:02 codeine Allergy RASH Verified 06/10/18 06:02 Latex, Natural Rubber Allergy ITCHING Verified 06/10/18 06:02 Sulfa (Sulfonamide Allergy RASH Verified 06/10/18 06:02 Antibiotics) Physical Exam - Constitutional Appears: Non-toxic, No Acute Distress - Head Exam Head Exam: NORMAL INSPECTION - Eye Exam Eye Exam: Normal appearance - Neck Exam Neck exam: Positive for: Normal Inspection - Respiratory Exam Respiratory Exam: Clear to Auscultation Bilateral, NORMAL BREATHING PATTERN - Cardiovascular Exam Cardiovascular Exam: +S1, +S2 - GI/Abdominal Exam GI & Abdominal Exam: Soft - Extremities Exam Extremities exam: Positive for: normal inspection - Back Exam Back exam: NORMAL INSPECTION - Neurological Exam Neurological exam: Alert, Oriented x3 - Psychiatric Exam Psychiatric exam: Normal Affect, Normal Mood - Skin Skin Exam: Normal Color, Warm Results - Vital Signs Recent Vital Signs: Last Vital Signs Temp 98.1 F 02/26/19 16:06 Pulse 54 L 02/26/19 16:06 Resp 18 02/26/19 16:06 BP 117/53 L 02/26/19 16:06 Pulse Ox 95 02/26/19 17:53 - Labs Result Diagrams: 02/25/19 22:57 02/26/19 04:18 Labs: Laboratory Results - last 24 hr 02/25/19 02/25/19 02/26/19 22:50 22:57 00:17 WBC 6.9 RBC 2.86 L Hgb 9.4 L Hct 28.2 L MCV 98.6 MCH 32.8 H MCHC 33.3 RDW 17.9 H Plt Count 199 MPV 7.9 Neut % (Auto) 55.9 Lymph % (Auto) 25.8 [place] % (Auto) 10.9 H Eos % (Auto) 6.1 H Baso % (Auto) 1.3 Neut # (Auto) 3.9 Lymph # (Auto) 1.8 [place] # (Auto) 0.7 Eos # (Auto) 0.4 Baso # (Auto) 0.1 pCO2 pO2 HCO3 ABG pH ABG Total CO2 ABG O2 Saturation ABG Base Excess [place] Test ABG Potassium A-a O2 Difference Glucose Lactate Vent Mode FiO2 Sodium 135 Potassium 5.6 H Chloride 106 Carbon Dioxide 14 L Anion Gap 21 H BUN 66 H Creatinine 3.3 H Est GFR ( Amer) 16 Est GFR (Non-Af Amer) 13 POC Glucose (mg/dL) 88 Random Glucose 90 Calcium 10.8 H Total Bilirubin 0.5 AST 28 ALT 10 Alkaline Phosphatase 59 Total Protein 11.7 H Albumin 3.9 Globulin 7.8 H Albumin/Globulin Ratio 0.5 L Arterial Blood Potassium 02/26/19 02/26/19 02/26/19 03:53 04:08 04:18 WBC RBC Hgb Hct MCV MCH MCHC RDW Plt Count MPV Neut % (Auto) Lymph % (Auto) [place] % (Auto) Eos % (Auto) Baso % (Auto) Neut # (Auto) Lymph # (Auto) [place] # (Auto) Eos # (Auto) Baso # (Auto) pCO2 pO2 HCO3 ABG pH ABG Total CO2 ABG O2 Saturation ABG Base Excess [place] Test ABG Potassium A-a O2 Difference Glucose Lactate Vent Mode FiO2 Sodium 135 Potassium 4.6 Chloride 108 H Carbon Dioxide 6 L* D Anion Gap 26 H BUN 67 H Creatinine 3.0 H Est GFR ( Amer) 18 Est GFR (Non-Af Amer) 15 POC Glucose (mg/dL) 31 L* 483 H* Random Glucose 267 H Calcium 11.9 H Total Bilirubin 1.0 AST 51 H D ALT < 6 L D Alkaline Phosphatase 72 Total Protein 12.5 H Albumin 3.9 Globulin 8.6 H Albumin/Globulin Ratio 0.5 L Arterial Blood Potassium 02/26/19 06:17 WBC RBC Hgb Hct MCV MCH MCHC RDW Plt Count MPV Neut % (Auto) Lymph % (Auto) [place] % (Auto) Eos % (Auto) Baso % (Auto) Neut # (Auto) Lymph # (Auto) [place] # (Auto) Eos # (Auto) Baso # (Auto) pCO2 30 L pO2 75 L HCO3 17.6 L ABG pH 7.32 L ABG Total CO2 16.4 L ABG O2 Saturation 99.8 H ABG Base Excess -9.3 L [place] Test Yes ABG Potassium 5.3 H A-a O2 Difference 87.0 Glucose 89 Lactate 1.0 Vent Mode 2lnc FiO2 28.0 Sodium 136.0 Potassium Chloride 108.0 H Carbon Dioxide Anion Gap BUN Creatinine Est GFR ( Amer) Est GFR (Non-Af Amer) POC Glucose (mg/dL) Random Glucose Calcium Total Bilirubin AST ALT Alkaline Phosphatase Total Protein Albumin Globulin Albumin/Globulin Ratio Arterial Blood Potassium 5.3 H Assessment & Plan (1) Renal failure Status: Acute (2) Hyperkalemia Status: Acute (3) Anemia Status: Chronic - Assessment and Plan (Free Text) Plan: available diagnostic data reviewed monitor labs monitor vitals consult nephrology, dr. herrera renal diet rest of plan as ordered
--- NOTE | 2019-02-26 23:08 | CARD ---
APPROVED REPORT Date of service: 02/25/2019 EKG Measurement Heart [id number] <Conclusion> Sinus bradycardia with 1st degree AV block Otherwise normal ECG
[2019-02-27 05:50] LABS: MEAN CELL VOLUME 99.6 fl (81.0-99.0); MEAN CORPUSCULAR HEMOGLOBIN 33.3 pg (27.0-31.0); MEAN CORPUSCULAR HGB CONC 33.4 g/dL (33.0-37.0); RBC 2.99 Mil/uL (3.80-5.20); RED CELL DISTRIBUTION WIDTH 18.2 % (11.5-14.5); WHITE BLOOD COUNT 6.6 K/uL (4.8-10.8)
[2019-02-27 06:25] LABS: ALBUMIN 3.8 g/dL (3.5-5.0); CALCIUM 11.2 mg/dL (8.4-10.2)
[2019-02-27 07:03] LABS: ALB/GLOB RATIO 0.5 (1.0-2.1)
--- NOTE | 2019-02-27 11:52 | CP.PCM.CON ---
History of Present Illness - History of Present Illness History of Present Illness: This 83 years of age female I was called to see her for abnormal kidney function. Patient was admitted because of abnormal BUN and creatinine she was seen as outpatient. Recently in December she was admitted for antibiotics intravenously for continuation of treatment of pyelonephritis she was receiving I believe Rocephin. And there was no blood test done in December however going back in November she was in the hospital and creatinine was in the range of 1.7 at that time. Patient denies any dysuria no nocturia no difficulty urination no chest pain no shortness of breath no difficulty breathing no arthralgia no myalgia. Past medical history Hypertension Recent pyelonephritis and she was treated with antibiotics I believe it is Rocephin Social history not contributory Review of Systems - Constitutional Constitutional: absent: Anorexia, Chills - EENT Eyes: absent: Blurred Vision, Exophthalmos Nose/Mouth/Throat: absent: Epistaxis - Cardiovascular Cardiovascular: absent: Acrocyanosis, Chest Pain, Chest Pain at Rest, Claudication, Dyspnea, Edema - Respiratory Respiratory: absent: Cough, Dyspnea, Chest Congestion - Gastrointestinal Gastrointestinal: absent: Abdominal Pain, Coffee Ground Emesis, Hematochezia - Genitourinary Genitourinary: absent: Dysuria, Hematuria, Pyuria, Nocturia - Musculoskeletal Musculoskeletal: absent: As Per HPI, Abnormal Gait, Arthralgias, Atrophy, Back Pain, Deformity, Joint Swelling, Limited Range of Motion, Loss of Height, Muscle Cramps, Muscle Weakness, Myalgias, Neck Pain, Numbness, Radiating Pain into Limb, Stiffness, Tingling, Other - Neurological Neurological: absent: As Per HPI, Abnormal Gait, Abnormal Hearing, Abnormal Movements, Abnormal Speech, Behavioral Changes, Burning Sensations, Confusion, Convulsions, Disequilibrium, Dizziness, Numbness, Focal Weakness, Frequent Falls, Headaches, Lack of Coordination, Loss of Vision, Memory Loss, Paresthesias, Radicular Pain, Restless Legs, Sensory Deficit, Syncope, Tingling, Tremor, Vertigo, Weakness, Other Visual Disturbances, Other - Psychiatric Psychiatric: absent: As Per HPI, Abnormal Sleep Pattern, Anhedonia, Anxiety, A uditory Hallucinations, Behavioral Changes, Change in Appetite, Change in Libido, Confusion, Depression, Difficulty Concentrating, Hallucinations, Homicidal Ideation, Hopelessness, Irritability, Memory Loss, Mood Swings, Panic Attacks, Paranoia, Suicidal Ideation, Visual Hallucinations, Tactile Martell ucinations, Other - Endocrine Endocrine: Fatigue. absent: Change in Body Appearance - Hematologic/Lymphatic Hematologic: absent: Easy Bleeding Past Patient History - Past Medical History & Family History Past Medical History?: Yes Past Family History: Reviewed and not pertinent - Past Social History Alcohol: None Drugs: Denies - CARDIAC Hx Hypertension: Yes Hx Mitral Valve Prolapse: Yes - PULMONARY Hx Respiratory Disorders: No - NEUROLOGICAL Hx Neurological Disorder: No - HEENT Hx HEENT Problems: No - RENAL Hx Chronic Kidney Disease: Yes - ENDOCRINE/METABOLIC Hx Endocrine Disorders: No - HEMATOLOGICAL/ONCOLOGICAL Hx Human Immunodeficiency Virus (HIV): No - INTEGUMENTARY Hx Dermatological Problems: No - MUSCULOSKELETAL/RHEUMATOLOGICAL Hx Musculoskeletal Disorders: Yes - GASTROINTESTINAL Hx Gastrointestinal Disorders: Yes Hx Gastroesophageal Reflux: Yes Hx Irritable Bowel: Yes - GENITOURINARY/GYNECOLOGICAL Hx Genitourinary Disorders: No - PSYCHIATRIC Hx Depression: Yes - SURGICAL HISTORY Hx Cholecystectomy: Yes Hx Coronary Stent: Yes - ANESTHESIA Hx Anesthesia: Yes Hx Anesthesia Reactions: No Hx Malignant Hyperthermia: No Meds Allergies/Adverse Reactions: Allergies Allergy/AdvReac Type Severity Reaction Status Date / Time aspirin Allergy ANAPHYLAXIS Verified 06/10/18 06:02 codeine Allergy RASH Verified 06/10/18 06:02 Latex, Natural Rubber Allergy ITCHING Verified 06/10/18 06:02 Sulfa (Sulfonamide Allergy RASH Verified 06/10/18 06:02 Antibiotics) - Medications Medications: Current Medications Carvedilol (Coreg) 6.25 mg PO Q12 [facility] Ferrous Sulfate (Feosol) 325 mg PO DAILY [facility] Last Admin: 02/27/19 09:40 Dose: 325 mg Isosorbide Mononitrate (Imdur Er) 30 mg PO DAILY [facility] Paroxetine HCl (Paxil) 20 mg PO QOTHERDAY [facility] Physical Exam - Constitutional Appears: No Acute Distress - Eye Exam Eye Exam: Conjunctival injection - ENT Exam ENT Exam: Mucous Membranes Moist - Neck Exam Neck exam: Negative for: Lymphadenopathy - Respiratory Exam Respiratory Exam: NORMAL BREATHING PATTERN. absent: Chest Wall Tenderness - Cardiovascular Exam Cardiovascular Exam: absent: Gallop, JVD, Rubs - GI/Abdominal Exam GI & Abdominal Exam: absent: Guarding, Normal Bowel Sounds - Extremities Exam Extremities exam: Negative for: calf tenderness - Back Exam Back exam: absent: CVA tenderness (L), CVA tenderness (R) - Neurological Exam Neurological exam: Alert - Psychiatric Exam Psychiatric exam: Normal Affect Results - Vital Signs Recent Vital Signs: Last Vital Signs Temp 97.6 F 02/27/19 08:17 Pulse 60 02/27/19 08:17 Resp 18 02/27/19 08:17 BP 121/66 02/27/19 08:17 Pulse Ox 96 02/27/19 08:17 - Labs Result Diagrams: 02/27/19 04:30 02/27/19 04:30 Labs: Laboratory Results - last 24 hr 02/27/19 02/27/19 02/27/19 04:30 04:30 09:04 WBC 6.6 RBC 2.99 L Hgb 10.0 L Hct 29.8 L MCV 99.6 H MCH 33.3 H MCHC 33.4 RDW 18.2 H Plt Count 168 Sodium 137 Potassium 4.5 Chloride 106 Carbon Dioxide 13 L Anion Gap 23 H BUN 69 H Creatinine 2.9 H Est GFR ( Amer) 19 Est GFR (Non-Af Amer) 15 Random Glucose 81 Calcium 11.2 H Total Bilirubin 0.5 AST 28 ALT 7 L Alkaline Phosphatase 49 Total Protein 11.8 H Albumin 3.8 Globulin 8.0 H Albumin/Globulin Ratio 0.5 L TSH 3rd Generation 2.41 Assessment & Plan (1) ABI (acute kidney injury) Assessment and Plan: Patient appears to have acute kidney injury serum creatinine was about 1.7 in November now presented with 3.3 Rule out interstitial nephritis Probably superimposed on chronic kidney disease stage II-III? Metabolic acidosis Hyperkalemia Hypertension Status post treatment for pyelonephritis Recommendation Stat spot urine for eosinophils Stat spot urine for sodium osmolarity and creatinine Stat urinalysis Serum phosphorus and PTH Gentle hydration D5 half-normal at 40 cc/h for the next 24 hours Avoid ROXANNE inhibitor and ARB at the present Blood pressure appears to be controlled at the present If eosinophils positive in the urine we will consider course of steroid Sodium bicarbonate 1 tablet 3 times a day until metabolic acidosis corrected Discussed with the nurse practitioner Status: Acute (2) Hyperkalemia Status: Acute
[2019-02-27] MEDS ORDERED: Dextrose 5%/0.45% NS 1,000 ML IV SCH (12:15)
[2019-02-27 13:27] LABS: SQUAMOUS EPITHIAL 1 /hpf (0-5); URINE BACTERIA RARE (<OCC); URINE BILIRUBIN NEGATIVE (NEGATIVE); URINE CLARITY CLEAR (Clear); URINE COLOR STRAW (YELLOW); URINE GLUCOSE (UA) NEG (NEGATIVE); URINE LEUKOCYTE ESTERASE NEG Leu/uL (Negative); URINE PROTEIN NEGATIVE (NEGATIVE); URINE UROBILINOGEN 0.2-1.0 mg/dL (0.2-1.0)
[2019-02-27 13:30] LABS: URINE BLOOD TRACE (NEGATIVE)
[2019-02-27 14:11] LABS: CREATININE, RANDOM URINE 51.6 mg/dL
--- NOTE | 2019-02-28 00:05 | CP.PCM.PN ---
Subjective - Date & Time of Evaluation Date of Evaluation: 02/27/19 Time of Evaluation: 09:35 - Subjective Subjective: Pt seen and assessed at bedside. Reports ongoing generalized weakness, however states an improvement in symptoms. Pt is for renal ultrasound today. Subjective Review of Systems: Reviewed and no additional remarkable complaints except generalized weakness. Objective Vital Signs Stable Appears: Anxious, Non-toxic, No Acute Distress. Head Exam: NORMAL INSPECTION, normocephalic. Eye Exam: Normal eye inspection, EOMI, PERRLA. Respiratory Exam: NORMAL BREATHING PATTERN, breath sounds clear bilaterally. Cardiovascular Exam: +S1, +S2. RRR. GI & Abdominal Exam: Soft, non-tender, non-distended. Bowel sounds normoactive. Neurological Exam: Alert, Awake, Oriented x3. Psychiatric exam: Normal mood. Calm and cooperative. Skin Exam: Normal Color, Warm, Dry. Assessment/Impression/Plan: 1.) Acute Kidney Injury -Nephrology consult input appreciated. -Renal diet. -Pt for renal ultrasound today. -BUN 69/Cr 2.9. Cautious hydration ongoing. -Continue current treatment. 2.) Hyperkalemia -Resolved. -Serial potassium levels. Objective - Vital Signs/Intake and Output Vital Signs (last 24 hours): Temp Pulse Resp BP Pulse Ox 98.2 F 72 16 107/62 94 L 02/27/19 20:11 02/27/19 22:02 02/27/19 20:11 02/27/19 22:02 02/27/19 20:11 - Medications Medications: Current Medications Carvedilol (Coreg) 6.25 mg PO Q12 [facility] Last Admin: 02/27/19 22:02 Dose: 6.25 mg Ferrous Sulfate (Feosol) 325 mg PO DAILY [facility] Last Admin: 02/27/19 09:40 Dose: 325 mg Dextrose/Sodium Chloride (Dextrose 5%/0.45% Ns 1000 Ml) 1,000 mls @ 42 mls/hr IV .[id number] [facility] Stop: 02/28/19 12:01 Last Admin: 02/27/19 12:41 Dose: 42 mls/hr Isosorbide Mononitrate (Imdur Er) 30 mg PO DAILY [facility] Last Admin: 02/27/19 12:42 Dose: 30 mg Paroxetine HCl (Paxil) 20 mg PO QOTHERDAY [facility] Sodium Bicarbonate (Sodium Bicarbonate Tab) 650 mg PO Q8 [facility] Last Admin: 02/27/19 17:06 Dose: 650 mg - Labs Labs: 02/27/19 04:30 02/27/19 04:30 Assessment and Plan (1) ABI (acute kidney injury) Status: Acute (2) Hyperkalemia Status: Acute
[2019-02-28 07:50] LABS: ALB/GLOB RATIO 0.5 (1.0-2.1); ALBUMIN 3.5 g/dL (3.5-5.0); CALCIUM 10.4 mg/dL (8.4-10.2)
--- NOTE | 2019-02-28 09:55 | US ---
Date of service: 02/27/2019 PROCEDURE: Ultrasound of the Kidneys HISTORY: renal failure COMPARISON: CT scan of the abdomen pelvis dated 12/10/2018. TECHNIQUE: Sonogram of the kidneys. FINDINGS: RIGHT KIDNEY: Measures: 9.8 x 4.9 x 4.9 cm. Large lower pole cyst measuring 5.2 x 4.6 x 4.3 cm. Normal in size, contour and echogenicity. No stone, solid mass lesion or hydronephrosis visualized. LEFT KIDNEY: Measures: 9.5 x 3.8 x 4.5 cm. Stable appearance of nonspecific midpole cortical calcification measuring 6 x 5 x 3 mm. Normal in size, contour and echogenicity. No stone, solid mass lesion or hydronephrosis visualized. OTHER FINDINGS: None. IMPRESSION: Large right lower pole cyst. No nephrolithiasis or hydronephrosis.
--- NOTE | 2019-02-28 13:38 | CP.PCM.PN ---
Subjective - Date & Time of Evaluation Date of Evaluation: 02/28/19 Time of Evaluation: 13:34 - Subjective Subjective: RENAL s: seen and examined no complaints o: vs as below gen: nad sclera: aniceric op: clear neck: supple cv: +S1+s2 no rub lungs: reduced bs at bases abd: soft nt nd no organomegaly ext: no edema neuro: A+OX3 no focal deficit psych: nml affect skin: no rash imp: ARF/ anemia/ uti/ acidosis /hypercalcemia/ renal cyst plan: jamarcus mildly improved will resume fluids 75 75 cc/hr continue oral bicarb f/u cultures recc for large renal cyst on US monitor h and h ca is improving - will check iPTH to see if pth mediated Objective - Vital Signs/Intake and Output Vital Signs (last 24 hours): Temp Pulse Resp BP Pulse Ox 98.8 F 62 18 111/63 93 L 02/28/19 11:50 02/28/19 11:50 02/28/19 11:50 02/28/19 11:50 02/28/19 11:50 - Medications Medications: Current Medications Carvedilol (Coreg) 6.25 mg PO Q12 [facility] Last Admin: 02/28/19 08:40 Dose: 6.25 mg Ferrous Sulfate (Feosol) 325 mg PO DAILY [facility] Last Admin: 02/28/19 08:39 Dose: 325 mg Isosorbide Mononitrate (Imdur Er) 30 mg PO DAILY [facility] Last Admin: 02/28/19 08:39 Dose: 30 mg Paroxetine HCl (Paxil) 20 mg PO QOTHERDAY [facility] Sodium Bicarbonate (Sodium Bicarbonate Tab) 650 mg PO Q8 [facility] Last Admin: 02/28/19 08:41 Dose: 650 mg - Labs Labs: 02/27/19 04:30 02/28/19 05:15
[2019-02-28] MEDS: Sodium Chloride 0.9% 1,000 ML IV SCH (14:00)
[2019-02-28 17:43] LABS: SQUAMOUS EPITHIAL < 1 /hpf (0-5); URINE BILIRUBIN NEGATIVE (NEGATIVE); URINE BLOOD NEGATIVE (NEGATIVE); URINE CLARITY CLOUDY (Clear); URINE COLOR YELLOW (YELLOW); URINE GLUCOSE (UA) NEG (NEGATIVE); URINE LEUKOCYTE ESTERASE NEG Leu/uL (Negative); URINE PROTEIN NEGATIVE (NEGATIVE); URINE UROBILINOGEN 0.2-1.0 mg/dL (0.2-1.0)
[2019-03-01 06:59] LABS: BASO # 0.1 K/uL (0.0-0.2); BASO % 0.8 % (0.0-2.0); EOS # 0.5 K/uL (0.0-0.7); EOS % 7.9 % (0.0-4.0); HEMOGLOBIN 8.6 g/dL (12.0-16.0); LYMPH # 1.8 K/uL (1.0-4.3); LYMPH % 27.8 % (20.0-40.0); MEAN CELL VOLUME 99.6 fl (81.0-99.0); MEAN CORPUSCULAR HEMOGLOBIN 33.6 pg (27.0-31.0); MEAN CORPUSCULAR HGB CONC 33.7 g/dL (33.0-37.0); MEAN PLATELET VOLUME 8.4 fl (7.2-11.7); MONO # 1.3 K/uL (0.0-0.8); MONO % 20.6 % (0.0-10.0); NEUT # 2.7 K/uL (1.8-7.0); NEUT % 42.9 % (50.0-75.0); NRBC % 0.2 % (0.0-0.0); PLATELET COUNT 146 K/uL (130-400); RBC 2.57 Mil/uL (3.80-5.20); RED CELL DISTRIBUTION WIDTH 17.7 % (11.5-14.5); WHITE BLOOD COUNT 6.4 K/uL (4.8-10.8)
[2019-03-01] MEDS: Sodium Chloride 0.9% 1,000 ML IV SCH (07:00)
[2019-03-01 07:11] LABS: ALB/GLOB RATIO 0.5 (1.0-2.1); ALBUMIN 3.3 g/dL (3.5-5.0); CALCIUM 10.2 mg/dL (8.4-10.2)
[2019-03-01 13:03] LABS: BANDS 2 % (0-2); BASOPHIL 1 % (0-2); EOSINOPHIL 9 % (0-7); LYMPHOCYTE 16 % (20-50); MONOCYTE 15 % (0-10); NEUTROPHIL 57 % (42-75); TOTAL CELLS COUNTED 100
[2019-03-01 13:05] LABS: ANISOCYTOSIS SLIGHT; PLATELET ESTIMATE NORMAL (NORMAL)
[2019-03-01 13:06] LABS: HYPOCHROMIC MODERATE; OVALOCYTES SLIGHT; TEARDROP CELLS SLIGHT
--- NOTE | 2019-03-01 18:54 | CP.PCM.PN ---
Subjective - Date & Time of Evaluation Date of Evaluation: 03/01/19 Time of Evaluation: 18:53 - Subjective Subjective: RENAL s: seen and examined no complaints feels better o: vs as below gen: nad sclera: anicteric op: clear neck: supple cv: +S1+s2 no rub lungs: reduced bs at bases abd: soft nt nd no organomegaly ext: no edema neuro: A+OX3 no focal deficit psych: nml affect skin: no rash imp: ARF/ anemia/ uti/ acidosis /hypercalcemia/ renal cyst plan: jamarcus mildly improved again continue ivf UA w/ dipstick neg protein but 1 gram by upcr - suspicious for paraprotein disease w/ elevated total protein will check SPEP w/ IF, Urine immuno and serum free light chain assay continue oral bicarb f/u cultures recc consult for large renal cyst on US monitor h and h ca is improving - awaiting pth Objective - Vital Signs/Intake and Output Vital Signs (last 24 hours): Temp Pulse Resp BP Pulse Ox 97.6 F 55 L 18 109/51 L 94 L 03/01/19 16:15 03/01/19 16:15 03/01/19 16:15 03/01/19 16:15 03/01/19 16:15 - Medications Medications: Current Medications Acetaminophen (Tylenol 325mg Tab) 650 mg PO Q6 PRN PRN Reason: Pain, Mild (1-3) Carvedilol (Coreg) 6.25 mg PO Q12 [facility] Last Admin: 03/01/19 08:46 Dose: 6.25 mg Ferrous Sulfate (Feosol) 325 mg PO DAILY [facility] Last Admin: 03/01/19 08:46 Dose: 325 mg Isosorbide Mononitrate (Imdur Er) 30 mg PO DAILY [facility] Last Admin: 03/01/19 08:46 Dose: 30 mg Paroxetine HCl (Paxil) 20 mg PO QOTHERDAY [facility] Last Admin: 03/01/19 08:46 Dose: 20 mg Sodium Bicarbonate (Sodium Bicarbonate Tab) 650 mg PO Q8 [facility] Last Admin: 03/01/19 16:28 Dose: 650 mg - Labs Labs: 03/01/19 05:16 03/01/19 05:16
--- NOTE | 2019-03-02 02:12 | CP.PCM.PN ---
Subjective - Date & Time of Evaluation Date of Evaluation: 02/28/19 Time of Evaluation: 10:00 - Subjective Subjective: Pt seen and assessed at bedside. Mild improvement in renal function noted, on gentle hydration. Otherwise, the pt has no new complaints other than intermittent headache. Subjective Review of Systems: Reviewed and no additional remarkable complaints except generalized weakness, occasional headache. Objective Vital Signs Stable Appears: Anxious, Non-toxic, No Acute Distress. Head Exam: NORMAL INSPECTION, normocephalic. Eye Exam: Normal eye inspection, EOMI, PERRLA. Respiratory Exam: NORMAL BREATHING PATTERN, breath sounds clear bilaterally. Cardiovascular Exam: +S1, +S2. RRR. GI & Abdominal Exam: Soft, non-tender, non-distended. Bowel sounds normoactive. Neurological Exam: Alert, Awake, Oriented x3. Psychiatric exam: Normal mood. Calm and cooperative. Skin Exam: Normal Color, Warm, Dry. Assessment/Impression/Plan: 1.) Acute Kidney Injury -Nephrology consult input appreciated. -Renal function slightly improved. -Cautious hydration. -Renal ultrasound showed no hydronephrosis or nephrolithiasis. Finding of large right renal cyst was noted. -Continue current treatment; monitor electrolytes. Objective - Vital Signs/Intake and Output Vital Signs (last 24 hours): Temp Pulse Resp BP Pulse Ox 98 F 64 18 148/68 95 03/02/19 01:00 03/02/19 01:00 03/02/19 01:00 03/02/19 01:00 03/02/19 01:00 - Medications Medications: Current Medications Acetaminophen (Tylenol 325mg Tab) 650 mg PO Q6 PRN PRN Reason: Pain, Mild (1-3) Carvedilol (Coreg) 6.25 mg PO Q12 [facility] Last Admin: 03/01/19 22:01 Dose: 6.25 mg Ferrous Sulfate (Feosol) 325 mg PO DAILY [facility] Last Admin: 03/01/19 08:46 Dose: 325 mg Isosorbide Mononitrate (Imdur Er) 30 mg PO DAILY [facility] Last Admin: 03/01/19 08:46 Dose: 30 mg Paroxetine HCl (Paxil) 20 mg PO QOTHERDAY [facility] Last Admin: 03/01/19 08:46 Dose: 20 mg Sodium Bicarbonate (Sodium Bicarbonate Tab) 650 mg PO Q8 [facility] Last Admin: 04/15/19 00:09 Dose: 650 mg - Labs Labs: 03/01/19 05:16 03/01/19 05:16 Assessment and Plan (1) ABI (acute kidney injury) Status: Acute (2) Hyperkalemia Status: Acute
--- NOTE | 2019-03-02 02:17 | CP.PCM.PN ---
Subjective - Date & Time of Evaluation Date of Evaluation: 03/01/19 Time of Evaluation: 10:00 - Subjective Subjective: Pt seen and assessed at bedside. Reports ongoing generalized weakness, however states an improvement in symptoms. Mild improvement in renal function noted, on gentle hydration. Subjective Review of Systems: Reviewed and no additional remarkable complaints except generalized weakness. Objective Vital Signs Stable Appears: Anxious, Non-toxic, No Acute Distress. Head Exam: NORMAL INSPECTION, normocephalic. Eye Exam: Normal eye inspection, EOMI, PERRLA. Respiratory Exam: NORMAL BREATHING PATTERN, breath sounds clear bilaterally. Cardiovascular Exam: +S1, +S2. RRR. GI & Abdominal Exam: Soft, non-tender, non-distended. Bowel sounds normoactive. Neurological Exam: Alert, Awake, Oriented x3. Psychiatric exam: Normal mood. Calm and cooperative. Skin Exam: Normal Color, Warm, Dry. Assessment/Impression/Plan: 1.) Acute Kidney Injury -Nephrology consult input appreciated. -Renal function continues to improve on IVF hydration. -Notable dip in hgb to 8.6. Monitor need for PRBC tranfusion. Anemia possibly secondary to CKD or hemodilution from IVF. -Added urology for large right renal pole cyst. -Continue current treatment. Objective - Vital Signs/Intake and Output Vital Signs (last 24 hours): Temp Pulse Resp BP Pulse Ox 98 F 64 18 148/68 95 03/02/19 01:00 03/02/19 01:00 03/02/19 01:00 03/02/19 01:00 03/02/19 01:00 - Medications Medications: Current Medications Acetaminophen (Tylenol 325mg Tab) 650 mg PO Q6 PRN PRN Reason: Pain, Mild (1-3) Carvedilol (Coreg) 6.25 mg PO Q12 [facility] Last Admin: 03/01/19 22:01 Dose: 6.25 mg Ferrous Sulfate (Feosol) 325 mg PO DAILY [facility] Last Admin: 03/01/19 08:46 Dose: 325 mg Isosorbide Mononitrate (Imdur Er) 30 mg PO DAILY [facility] Last Admin: 03/01/19 08:46 Dose: 30 mg Paroxetine HCl (Paxil) 20 mg PO QOTHERDAY [facility] Last Admin: 03/01/19 08:46 Dose: 20 mg Sodium Bicarbonate (Sodium Bicarbonate Tab) 650 mg PO Q8 [facility] Last Admin: 03/02/19 00:09 Dose: 650 mg - Labs Labs: 03/01/19 05:16 03/01/19 05:16 Assessment and Plan (1) ABI (acute kidney injury) Status: Acute (2) Hyperkalemia Status: Acute
[2019-03-02 05:42] LABS: BASO # 0.1 K/uL (0.0-0.2); EOS # 0.6 K/uL (0.0-0.7); LYMPH # 2.2 K/uL (1.0-4.3); LYMPH % 32.2 % (20.0-40.0); MEAN CELL VOLUME 100.6 fl (81.0-99.0); MEAN CORPUSCULAR HEMOGLOBIN 32.1 pg (27.0-31.0); MEAN PLATELET VOLUME 8.3 fl (7.2-11.7); MONO # 0.8 K/uL (0.0-0.8); MONO % 12.1 % (0.0-10.0); NEUT # 3.1 K/uL (1.8-7.0); NEUT % 45.7 % (50.0-75.0); NRBC % 0.1 % (0.0-0.0); RBC 2.8 Mil/uL (3.80-5.20); RED CELL DISTRIBUTION WIDTH 18.3 % (11.5-14.5); WHITE BLOOD COUNT 6.9 K/uL (4.8-10.8)
[2019-03-02 05:54] LABS: ALB/GLOB RATIO 0.5 (1.0-2.1); ALBUMIN 3.4 g/dL (3.5-5.0); AST/SGOT 45 U/L (14-36); BLOOD UREA NITROGEN 44 mg/dl (7-17); CALCIUM 10.4 mg/dL (8.4-10.2); GFR NON-AFRICAN AMERICAN 25
[2019-03-02 05:58] LABS: ALT/SGPT < 6 U/L (9-52)
[2019-03-02 09:21] LABS: IRON 56 ug/dL (37-170)
[2019-03-02 09:30] LABS: % IRON SATURATION 27 % (20-55); TOTAL IRON BINDING CAPACITY 211 ug/dL (250-450)
--- NOTE | 2019-03-02 09:55 | CP.PCM.PN ---
Subjective - Date & Time of Evaluation Date of Evaluation: 03/02/19 Time of Evaluation: 09:53 - Subjective Subjective: RENAL s: seen and examined did not sleep well o: vs as below gen: nad sclera: anicteric op: clear neck: supple cv: +S1+s2 no rub lungs: reduced bs at bases abd: soft nt nd no organomegaly ext: no edema neuro: A+OX3 no focal deficit psych: nml affect skin: no rash imp: ARF/ anemia/ uti/ acidosis /hypercalcemia/ renal cyst plan: jaamrcus mildly improved again recc continue IVF UA w/ dipstick neg protein but 1 gram by upcr - suspicious for paraprotein disease w/ in particular w/ elevated total protein, hypercalcemia, and persistent acidosis suspicious for tubular injury will check SPEP w/ IF, Urine immuno and serum free light chain assay continue oral bicarb recc consult for large renal cyst on US monitor h and h ca remains mildly elevated- awaiting pth and paraprotein work up sent off as well Objective - Vital Signs/Intake and Output Vital Signs (last 24 hours): Temp Pulse Resp BP Pulse Ox 97.7 F 54 L 20 142/68 97 03/02/19 08:51 03/02/19 09:47 03/02/19 08:51 03/02/19 09:47 03/02/19 08:51 - Medications Medications: Current Medications Acetaminophen (Tylenol 325mg Tab) 650 mg PO Q6 PRN PRN Reason: Pain, Mild (1-3) Carvedilol (Coreg) 6.25 mg PO Q12 [facility] Last Admin: 03/02/19 09:47 Dose: 6.25 mg Ferrous Sulfate (Feosol) 325 mg PO DAILY [facility] Last Admin: 03/02/19 09:48 Dose: 325 mg Isosorbide Mononitrate (Imdur Er) 30 mg PO DAILY [facility] Last Admin: 03/02/19 09:48 Dose: 30 mg Paroxetine HCl (Paxil) 20 mg PO QOTHERDAY [facility] Last Admin: 03/01/19 08:46 Dose: 20 mg Sodium Bicarbonate (Sodium Bicarbonate Tab) 650 mg PO Q8 [facility] Last Admin: 03/02/19 09:49 Dose: 650 mg - Labs Labs: 03/02/19 05:00 03/02/19 05:00
[2019-03-02 17:21] LABS: FOLATE 10.2 ng/mL
[2019-03-02] MEDS: Sodium Chloride 0.9% 1,000 ML IV SCH (18:07)
--- NOTE | 2019-03-02 19:12 | CP.PCM.PN ---
Subjective - Date & Time of Evaluation Date of Evaluation: 03/02/19 Time of Evaluation: 19:11 - Subjective Subjective: uroilogy consulton chart. Suggest post void bladder scan to document residual urine Objective - Vital Signs/Intake and Output Vital Signs (last 24 hours): Temp Pulse Resp BP Pulse Ox 98.0 F 56 L 18 129/69 94 L 03/02/19 16:09 03/02/19 16:09 03/02/19 16:09 03/02/19 16:09 03/02/19 16:09 - Medications Medications: Current Medications Acetaminophen (Tylenol 325mg Tab) 650 mg PO Q6 PRN PRN Reason: Pain, Mild (1-3) Carvedilol (Coreg) 6.25 mg PO Q12 [facility] Last Admin: 03/02/19 09:47 Dose: 6.25 mg Ferrous Sulfate (Feosol) 325 mg PO DAILY [facility] Last Admin: 03/02/19 09:48 Dose: 325 mg Sodium Chloride (Sodium Chloride 0.9%) 1,000 mls @ 75 mls/hr IV .[id number] [facility] Stop: 03/03/19 17:42 Last Admin: 03/02/19 18:07 Dose: 75 mls/hr Isosorbide Mononitrate (Imdur Er) 30 mg PO DAILY [facility] Last Admin: 03/02/19 09:48 Dose: 30 mg Paroxetine HCl (Paxil) 20 mg PO QOTHERDAY [facility] Last Admin: 03/01/19 08:46 Dose: 20 mg Sodium Bicarbonate (Sodium Bicarbonate Tab) 650 mg PO Q8 [facility] Last Admin: 03/02/19 16:28 Dose: 650 mg - Labs Labs: 03/02/19 05:00 03/02/19 05:00
--- NOTE | 2019-03-02 19:39 | CP.PCM.PN ---
Subjective - Date & Time of Evaluation Date of Evaluation: 03/02/19 Time of Evaluation: 10:00 - Subjective Subjective: patient seen and examined at bedside. Interim events noted No complaints offered at this time denies cp/sob/fever/chills. available diagnostic data reviewed Review of Systems All systems: reviewed and no additional remarkable complaints except mentioned above Objective Vital Signs Stable - Constitutional Appears: Non-toxic, No Acute Distress Head Exam: NORMAL INSPECTION Eye Exam: Normal appearance Respiratory Exam: NORMAL BREATHING PATTERN Cardiovascular Exam: +S1, +S2 GI & Abdominal Exam: Soft Neurological Exam: Alert, Awake Psychiatric exam: Normal Affect, Normal Mood Skin Exam: Normal Color, Warm Assessment and Plan monitor vitals monitor labs Cont meds Cont tx consultants appreciated input rest of plan as ordered Objective - Vital Signs/Intake and Output Vital Signs (last 24 hours): Temp Pulse Resp BP Pulse Ox 98.0 F 56 L 18 129/69 94 L 03/02/19 16:09 03/02/19 16:09 03/02/19 16:09 03/02/19 16:09 03/02/19 16:09 - Medications Medications: Current Medications Acetaminophen (Tylenol 325mg Tab) 650 mg PO Q6 PRN PRN Reason: Pain, Mild (1-3) Carvedilol (Coreg) 6.25 mg PO Q12 [facility] Last Admin: 03/02/19 09:47 Dose: 6.25 mg Ferrous Sulfate (Feosol) 325 mg PO DAILY [facility] Last Admin: 03/02/19 09:48 Dose: 325 mg Sodium Chloride (Sodium Chloride 0.9%) 1,000 mls @ 75 mls/hr IV .[id number] [facility] Stop: 03/03/19 17:42 Last Admin: 03/02/19 18:07 Dose: 75 mls/hr Isosorbide Mononitrate (Imdur Er) 30 mg PO DAILY [facility] Last Admin: 03/02/19 09:48 Dose: 30 mg Paroxetine HCl (Paxil) 20 mg PO QOTHERDAY [facility] Last Admin: 03/01/19 08:46 Dose: 20 mg Sodium Bicarbonate (Sodium Bicarbonate Tab) 650 mg PO Q8 [facility] Last Admin: 03/02/19 16:28 Dose: 650 mg - Labs Labs: 03/02/19 05:00 03/02/19 05:00 Assessment and Plan (1) Renal failure Status: Acute (2) Anemia Status: Chronic
[2019-03-03 05:48] LABS: CALCIUM 10.1 mg/dL (8.4-10.2)
[2019-03-03] MEDS: Sodium Chloride 0.9% 1,000 ML IV SCH ×2 (09:01→21:37)
--- NOTE | 2019-03-03 12:37 | CP.PCM.PN ---
Subjective - Date & Time of Evaluation Date of Evaluation: 03/03/19 Time of Evaluation: 12:37 - Subjective Subjective: Patient awake and conscious feeling very good no nausea no vomiting. Vital signs stable. Patient voiding well. Objective - Vital Signs/Intake and Output Vital Signs (last 24 hours): Temp Pulse Resp BP Pulse Ox 98.2 F 51 L 16 126/60 97 03/03/19 12:12 03/03/19 12:12 03/03/19 12:12 03/03/19 12:12 03/03/19 12:12 Intake and Output: 03/03/19 03/03/19 06:59 18:59 Output Total 0 Balance 0 - Medications Medications: Current Medications Acetaminophen (Tylenol 325mg Tab) 650 mg PO Q6 PRN PRN Reason: Pain, Mild (1-3) Carvedilol (Coreg) 6.25 mg PO Q12 [facility] Last Admin: 03/03/19 09:02 Dose: 6.25 mg Ferrous Sulfate (Feosol) 325 mg PO DAILY [facility] Last Admin: 03/03/19 09:02 Dose: 325 mg Sodium Chloride (Sodium Chloride 0.9%) 1,000 mls @ 75 mls/hr IV .[id number] [facility] Stop: 03/03/19 17:42 Last Admin: 03/03/19 09:01 Dose: 75 mls/hr Isosorbide Mononitrate (Imdur Er) 30 mg PO DAILY [facility] Last Admin: 03/03/19 09:03 Dose: 30 mg Paroxetine HCl (Paxil) 20 mg PO QOTHERDAY [facility] Last Admin: 03/03/19 09:02 Dose: 20 mg Sodium Bicarbonate (Sodium Bicarbonate Tab) 650 mg PO Q8 [facility] Last Admin: 03/03/19 09:02 Dose: 650 mg - Labs Labs: 03/02/19 05:00 03/03/19 04:30 - Constitutional Appears: No Acute Distress - Eye Exam Eye Exam: Conjunctival injection - ENT Exam ENT Exam: Mucous Membranes Moist - Neck Exam Neck Exam: absent: Lymphadenopathy - Respiratory Exam Respiratory Exam: NORMAL BREATHING PATTERN. absent: Chest Wall Tenderness - GI/Abdominal Exam GI & Abdominal Exam: Soft, Normal Bowel Sounds - Extremities Exam Extremities Exam: absent: Calf Tenderness - Back Exam Back Exam: absent: CVA tenderness (L), CVA tenderness (R) - Neurological Exam Neurological Exam: Alert - Skin Skin Exam: absent: Cyanosis Assessment and Plan (1) ABI (acute kidney injury) Assessment & Plan: Acute renal injury/acute renal failure. acidosis. Hypercalcemia improving. Hyperproteinemia. Anemia Recommendation PTH within normal limits serum phosphorus coming down Kidney function stable with latest creatinine 1.9 Ultrasound of the kidneys show normal echogenicity as reported with a renal cyst Patient need hematology consultation for anemia and possible bone marrow and looking for multiple myeloma? Continue gentle hydration Status: Acute (2) Hyperkalemia Status: Acute
--- NOTE | 2019-03-03 14:22 | CP.PCM.CON ---
History of Present Illness - History of Present Illness History of Present Illness: 83 year old female with a history of IBS, diverticulosis, HTN, breast cancer s/p lumpectomy, adjuvant radiation/endocrine therapy, recently treated pyelonephritis, admitted with renal failure and hyperkalemia, and concern for multiple myeloma. The patient was found to have hypercalcemia, anemia, renal failure, elevated total protein level, and monoclonal gammopathy. She does have right sided hip pain. Past medical history: IBS, diverticulosis, HTN, breast cancer Past surgical history: Breast lumpectomy Family history: Denies hematologic and oncologic problems Social history: Denies tobacco, alcohol, and illicit drug use. Allergies: Several, see list Review of systems: All remaining review of systems including HEENT, cardiovascular, respiratory, gastrointestinal, genitourinary, musculoskeletal, dermatologic, neurologic, and psychiatric are negative unless mentioned in the HPI. Past Patient History - Past Medical History & Family History Past Medical History?: Yes Past Family History: Reviewed and not pertinent - Past Social History Alcohol: None Drugs: Denies - CARDIAC Hx Hypertension: Yes Hx Mitral Valve Prolapse: Yes - PULMONARY Hx Respiratory Disorders: No - NEUROLOGICAL Hx Neurological Disorder: No - HEENT Hx HEENT Problems: No - RENAL Hx Chronic Kidney Disease: Yes - ENDOCRINE/METABOLIC Hx Endocrine Disorders: No - HEMATOLOGICAL/ONCOLOGICAL Hx Human Immunodeficiency Virus (HIV): No - INTEGUMENTARY Hx Dermatological Problems: No - MUSCULOSKELETAL/RHEUMATOLOGICAL Hx Musculoskeletal Disorders: Yes - GASTROINTESTINAL Hx Gastrointestinal Disorders: Yes Hx Gastroesophageal Reflux: Yes Hx Irritable Bowel: Yes - GENITOURINARY/GYNECOLOGICAL Hx Genitourinary Disorders: No - PSYCHIATRIC Hx Depression: Yes - SURGICAL HISTORY Hx Cholecystectomy: Yes Hx Coronary Stent: Yes - ANESTHESIA Hx Anesthesia: Yes Hx Anesthesia Reactions: No Hx Malignant Hyperthermia: No Meds Allergies/Adverse Reactions: Allergies Allergy/AdvReac Type Severity Reaction Status Date / Time aspirin Allergy ANAPHYLAXIS Verified 06/10/18 06:02 codeine Allergy RASH Verified 06/10/18 06:02 Latex, Natural Rubber Allergy ITCHING Verified 06/10/18 06:02 Sulfa (Sulfonamide Allergy RASH Verified 06/10/18 06:02 Antibiotics) - Medications Medications: Current Medications Acetaminophen (Tylenol 325mg Tab) 650 mg PO Q6 PRN PRN Reason: Pain, Mild (1-3) Carvedilol (Coreg) 6.25 mg PO Q12 [facility] Last Admin: 04/16/19 09:02 Dose: 6.25 mg Ferrous Sulfate (Feosol) 325 mg PO DAILY [facility] Last Admin: 03/03/19 09:02 Dose: 325 mg Sodium Chloride (Sodium Chloride 0.9%) 1,000 mls @ 75 mls/hr IV .[id number] [facility] Stop: 03/03/19 17:42 Last Admin: 03/03/19 09:01 Dose: 75 mls/hr Isosorbide Mononitrate (Imdur Er) 30 mg PO DAILY [facility] Last Admin: 03/03/19 09:03 Dose: 30 mg Paroxetine HCl (Paxil) 20 mg PO QOTHERDAY [facility] Last Admin: 03/03/19 09:02 Dose: 20 mg Sodium Bicarbonate (Sodium Bicarbonate Tab) 650 mg PO Q8 [facility] Last Admin: 03/03/19 09:02 Dose: 650 mg Physical Exam - Head Exam Head Exam: ATRAUMATIC - Eye Exam Eye Exam: Normal appearance - ENT Exam ENT Exam: Mucous Membranes Dry - Respiratory Exam Respiratory Exam: NORMAL BREATHING PATTERN - Cardiovascular Exam Cardiovascular Exam: +S1, +S2 - GI/Abdominal Exam GI & Abdominal Exam: Normal Bowel Sounds - Extremities Exam Extremities exam: Positive for: normal inspection - Neurological Exam Neurological exam: Oriented x3 - Psychiatric Exam Psychiatric exam: Normal Affect, Normal Mood - Skin Skin Exam: Warm Results - Vital Signs Recent Vital Signs: Last Vital Signs Temp 98.2 F 03/03/19 12:12 Pulse 51 L 03/03/19 12:12 Resp 16 03/03/19 12:12 BP 126/60 03/03/19 12:12 Pulse Ox 97 03/03/19 12:12 - Labs Result Diagrams: 03/02/19 05:00 03/03/19 04:30 Labs: Laboratory Results - last 24 hr 03/02/19 03/02/19 03/02/19 05:00 05:00 05:00 ESR Sodium Potassium Chloride Carbon Dioxide Anion Gap BUN Creatinine Est GFR ( Amer) Est GFR (Non-Af Amer) Random Glucose Calcium Transferrin 130.08 L 25-OH Vitamin D Total 44.0 Folate 10.2 03/03/19 03/03/19 04:30 12:30 ESR > 120 H Sodium 140 Potassium 4.4 Chloride 113 H Carbon Dioxide 16 L Anion Gap 15 BUN 45 H Creatinine 1.9 H Est GFR ( Amer) 31 Est GFR (Non-Af Amer) 25 Random Glucose 86 Calcium 10.1 Transferrin 25-OH Vitamin D Total Folate Assessment & Plan (1) Monoclonal gammopathy Assessment and Plan: IgG lambda by serum immunofixation f/u SPEP and free light chain assay will check skeletal survey to rule out lytic bone lesions bone marrow biopsy in AM - discussed with the patients daughter Dr. Velásquez Status: Acute (2) Anemia Assessment and Plan: ? related to multiple myeloma no iron/b12/folate deficiency Thank you for this interesting consult. Status: Chronic
--- NOTE | 2019-03-03 14:58 | CON ---
HISTORY OF PRESENT ILLNESS: This is an 83-year-old female patient who I was called to assess for some unusual renal ultrasound findings. Apparently, this patient is being admitted for probable renal insufficiency to renal failure. She had upon admission some laboratory work that was done and the lab work seemed to indicate a presence of a chronic anemia with a hemoglobin of 9.4, hematocrit of 28.2. Her initial chemistries on the 02/28/2019 showed a BUN of 64 with a creatinine of 2.8. Currently, that number has modified to 44 and 1.9. The patient has no abnormal urinalysis findings. No culture was done. The urinalysis appears to be free of any suspected urinary tract infection. The patient had a renal ultrasound also upon admission and the renal ultrasound demonstrates the presence of a rather moderately sized right renal cyst measuring 5.2 x 4.6 x 4.3 cm in size. There is some minimal cortical calcification on the left kidney. There is no evidence of hydronephrosis on either left or right side. The clinical condition does not appear to be resultant from an obstructive pattern. PHYSICAL EXAMINATION: EXTREMITIES: On physical examination with this patient, she has on palpation of the flank, no acute flank pain either left or right side. ABDOMEN: Her abdomen is soft. She said she has occasionally some difficulty urinating, but there is no mention of urinary retention at this time, perhaps going forward might suggest doing a bladder scan postvoid to see if there is any significant amount of urinary retention. At this time urologically, the patient appears to be somewhat improving. She has no acute pain, and again in future, plan will be suggesting to do a bladder scan postvoid to see if there is any residual urine in the bladder. Alice Kruger MD
[2019-03-04 05:59] LABS: BASO % 0.8 % (0.0-2.0); EOS # 0.5 K/uL (0.0-0.7); EOS % 7.1 % (0.0-4.0); HEMOGLOBIN 8.2 g/dL (12.0-16.0); LYMPH # 2.1 K/uL (1.0-4.3); LYMPH % 31.2 % (20.0-40.0); MEAN CELL VOLUME 98.9 fl (81.0-99.0); MEAN CORPUSCULAR HEMOGLOBIN 33.3 pg (27.0-31.0); MEAN CORPUSCULAR HGB CONC 33.7 g/dL (33.0-37.0); MONO # 0.6 K/uL (0.0-0.8); MONO % 9.6 % (0.0-10.0); NEUT # 3.4 K/uL (1.8-7.0); NEUT % 51.3 % (50.0-75.0); NRBC % 0.1 % (0.0-0.0); RBC 2.47 Mil/uL (3.80-5.20); RED CELL DISTRIBUTION WIDTH 17.7 % (11.5-14.5); WHITE BLOOD COUNT 6.6 K/uL (4.8-10.8)
[2019-03-04 06:00] LABS: ALB/GLOB RATIO 0.5 (1.0-2.1); ALBUMIN 3.2 g/dL (3.5-5.0); CALCIUM 9.9 mg/dL (8.4-10.2)
[2019-03-04 08:20] VITALS: RESP 20
[2019-03-04] MEDS ORDERED: Lidocaine 2% Inj (20ml) IJ ONE (08:40)
[2019-03-04] MEDS ORDERED: Lidocaine 2% Inj (20ml) ONE (08:58)
[2019-03-04] MEDS: Sodium Chloride 0.9% 1,000 ML IV SCH (10:04)
--- NOTE | 2019-03-04 10:22 | CP.PCM.PN ---
Subjective - Date & Time of Evaluation Date of Evaluation: 03/04/19 Time of Evaluation: 09:00 - Subjective Subjective: Bone marrow aspiration and biopsy procedure Indication: Monoclonal gammopathy, renal failure, hypercalcemia, anemia, rule out multiple myeloma - Time-out was called to confirm: patients name and date of , procedure, side and site of biopsy, safety procedures followed. - Performed by: self. - Informed consent: signed by patient. - Aspiration and biopsy site: [left] superior posterior iliac crest. - Patient position: [right lateral decubitus] - Preparation and technique: sterile preparation of site with [place], C hloraprep, draped to expose aspirate/biopsy area, local anesthesia with 2% lidocaine (approximately 10ml), frequent pressure application on incision to maintain hemostasis. - Tissue obtained: bone marrow aspirate and biopsy were successfully obtained in sterile manner. - Toleration of procedure and any complications: slight localized bleeding (<1ml). Patient tolerated procedure well with minimal pain. Objective - Vital Signs/Intake and Output Vital Signs (last 24 hours): Temp Pulse Resp BP Pulse Ox 97.5 F L 56 L 20 145/70 97 03/04/19 08:19 03/04/19 10:01 03/04/19 08:19 03/04/19 10:01 03/04/19 08:19 - Medications Medications: Current Medications Acetaminophen (Tylenol 325mg Tab) 650 mg PO Q6 PRN PRN Reason: Pain, Mild (1-3) Carvedilol (Coreg) 3.125 mg PO Q12 [facility] Last Admin: 03/04/19 10:01 Dose: Not Given Ferrous Sulfate (Feosol) 325 mg PO DAILY [facility] Last Admin: 03/04/19 10:01 Dose: 325 mg Sodium Chloride (Sodium Chloride 0.9%) 1,000 mls @ 75 mls/hr IV .[id number] [facility] Stop: 03/04/19 18:58 Last Admin: 03/04/19 10:04 Dose: 75 mls/hr Isosorbide Mononitrate (Imdur Er) 30 mg PO DAILY [facility] Last Admin: 03/04/19 10:02 Dose: 30 mg Paroxetine HCl (Paxil) 20 mg PO QOTHERDAY [facility] Last Admin: 03/03/19 09:02 Dose: 20 mg Sodium Bicarbonate (Sodium Bicarbonate Tab) 650 mg PO Q8 [facility] Last Admin: 03/04/19 10:02 Dose: 650 mg - Labs Labs: 03/04/19 04:20 03/04/19 04:20 - Head Exam Head Exam: ATRAUMATIC - Eye Exam Eye Exam: Normal appearance - ENT Exam ENT Exam: Mucous Membranes Dry - Respiratory Exam Respiratory Exam: NORMAL BREATHING PATTERN - Cardiovascular Exam Cardiovascular Exam: +S1, +S2 - GI/Abdominal Exam GI & Abdominal Exam: Normal Bowel Sounds - Extremities Exam Extremities Exam: Normal Inspection Assessment and Plan (1) Monoclonal gammopathy Assessment & Plan: f/u bone marrow results ? multiple myeloma will give a dose of steroids for skeletal survey today cleared from heme/onc standpoint for D/C outpatient f/u with me in 1 week to review bone marrow results Status: Acute (2) Anemia Status: Chronic
--- NOTE | 2019-03-04 11:00 | CP.PCM.PN ---
Subjective - Date & Time of Evaluation Date of Evaluation: 03/04/19 Time of Evaluation: 10:59 - Subjective Subjective: Patient awake and conscious feeling good no nausea no vomiting. Vital signs stable. Objective - Vital Signs/Intake and Output Vital Signs (last 24 hours): Temp Pulse Resp BP Pulse Ox 97.5 F L 56 L 20 145/70 97 03/04/19 09:00 03/04/19 10:01 03/04/19 09:00 03/04/19 10:01 03/04/19 09:00 - Medications Medications: Current Medications Acetaminophen (Tylenol 325mg Tab) 650 mg PO Q6 PRN PRN Reason: Pain, Mild (1-3) Carvedilol (Coreg) 3.125 mg PO Q12 [facility] Last Admin: 03/04/19 10:01 Dose: Not Given Dexamethasone (Decadron) 40 mg PO ONCE ONE Stop: 03/04/19 11:01 Ferrous Sulfate (Feosol) 325 mg PO DAILY [facility] Last Admin: 03/04/19 10:01 Dose: 325 mg Sodium Chloride (Sodium Chloride 0.9%) 1,000 mls @ 75 mls/hr IV .[id number] [facility] Stop: 03/04/19 18:58 Last Admin: 03/04/19 10:04 Dose: 75 mls/hr Isosorbide Mononitrate (Imdur Er) 30 mg PO DAILY [facility] Last Admin: 03/04/19 10:02 Dose: 30 mg Paroxetine HCl (Paxil) 20 mg PO QOTHERDAY [facility] Last Admin: 03/03/19 09:02 Dose: 20 mg Sodium Bicarbonate (Sodium Bicarbonate Tab) 650 mg PO Q8 [facility] Last Admin: 03/04/19 10:02 Dose: 650 mg - Labs Labs: 03/04/19 04:20 03/04/19 04:20 - Constitutional Appears: No Acute Distress - Eye Exam Eye Exam: Conjunctival injection - ENT Exam ENT Exam: Mucous Membranes Moist - Neck Exam Neck Exam: absent: Lymphadenopathy - Respiratory Exam Respiratory Exam: NORMAL BREATHING PATTERN. absent: Chest Wall Tenderness - Cardiovascular Exam Cardiovascular Exam: absent: Gallop, JVD, Rubs - GI/Abdominal Exam GI & Abdominal Exam: Soft, Normal Bowel Sounds - Extremities Exam Extremities Exam: absent: Calf Tenderness - Back Exam Back Exam: absent: CVA tenderness (L), CVA tenderness (R) - Neurological Exam Neurological Exam: Alert - Psychiatric Exam Psychiatric exam: Normal Affect - Skin Skin Exam: absent: Cyanosis Assessment and Plan (1) ABI (acute kidney injury) Assessment & Plan: Acute renal injury/acute renal failure. acidosis. Hypercalcemia improving. Hyperproteinemia. Anemia Recommendation PTH within normal limits serum phosphorus coming down Kidney function and serum creatinine coming down to 1.7 Ultrasound of the kidneys show normal echogenicity as reported with a renal cyst Patient had bone marrow today and discuss with the home visitor Her daughter will be called later on for update Status: Acute (2) Hyperkalemia Status: Acute
--- NOTE | 2019-03-04 11:49 | RAD ---
PROCEDURE: HISTORY: Evaluate for lytic lesion. COMPARISON: None TECHNIQUE: AP and lateral cervical spine ; 2 frontal and 1 lateral skull view ; 2 frontal and 1 lateral view thoracic spine ; 1 frontal and 1 lateral lumbar spine ; one frontal pelvis ; 2 frontal views of the right femur and 2 frontal views of the left femur ; single frontal right humerus and single frontal left humerus views FINDINGS: Lytic lesions: There are numerable small radiolucencies throughout the bony calvarium-this has some some months to a salt and pepper skull x-ray appearance which can sometimes be seen with hyperparathyroidism and/or multiple myeloma. Clinical correlation is recommended. Alignment: Mineralization: Generalized osteopenia this impedes optimal evaluation for lytic lesions. Joints: Diffuse arthrosis. Degenerative disc disease diffusely present throughout the thoraco lumbar and cervical spine. Other findings: Slight anterior subluxation of L4 relative to L5 perhaps 2 to 3 mm-likely due to degenerative ligamentous laxity from facet hypertrophic arthrosis at L4-5. old inferior right pubic ring healed fracture deformity. Diffuse atherosclerotic vascular calcifications right forearm subcutaneous reticulated edema correlate clinically. IMPRESSION: Given the skull appearance-the findings may relate to multiple myeloma. Correlate clinically. No significant appearing fracture appreciated. Diffuse degenerative changes noted. Old healed inferior right pubic ring fracture deformity. Marked generalized osteopenia. Other findings as above
[2019-03-04 12:20] VITALS: O2SAT 95
--- NOTE | 2019-03-04 14:12 | CP.PCM.PCO ---
Assessment/Plan - Assessment and Plan (Free Text) Assessment: pt s/p bone marrow bx feels well, denies sob, cp, fever chills pt. cleared for d/c to home today by and pt. will f/u with on Saturday f/u with outpt
--- NOTE | 2019-03-04 16:14 | CP.PCM.PN ---
Subjective - Date & Time of Evaluation Date of Evaluation: 03/03/19 Time of Evaluation: 09:00 - Subjective Subjective: Pt seen and assessed at bedside. Improved renal function, pt reports feeling better. Hematology/Oncology was recently consulted. Subjective Review of Systems: Reviewed and no additional remarkable complaints except generalized weakness. Objective Vital Signs Stable Appears: Anxious, Non-toxic, No Acute Distress. Head Exam: NORMAL INSPECTION, normocephalic. Eye Exam: Normal eye inspection, EOMI, PERRLA. Respiratory Exam: NORMAL BREATHING PATTERN, breath sounds clear bilaterally. Cardiovascular Exam: +S1, +S2. RRR. GI & Abdominal Exam: Soft, non-tender, non-distended. Bowel sounds normoactive. Neurological Exam: Alert, Awake, Oriented x3. Psychiatric exam: Normal mood. Calm and cooperative. Skin Exam: Normal Color, Warm, Dry. Assessment/Impression/Plan: 1.) Acute Kidney Injury -Nephrology consult input appreciated. -Continuous renal improvement on IV hydration. -Hem/onc consulted due to anemia, high protein, and borderline high calcium. R/O multiple myeloma/malignancy. -PT/OT eval and tx. -Continue current treatment. Objective - Vital Signs/Intake and Output Vital Signs (last 24 hours): Temp Pulse Resp BP Pulse Ox 98.1 F 56 L 20 135/68 95 03/04/19 13:00 03/04/19 13:00 03/04/19 13:00 03/04/19 13:00 03/04/19 13:00 - Medications Medications: Current Medications Acetaminophen (Tylenol 325mg Tab) 650 mg PO Q6 PRN PRN Reason: Pain, Mild (1-3) Carvedilol (Coreg) 3.125 mg PO Q12 [facility] Last Admin: 03/04/19 10:01 Dose: Not Given Ferrous Sulfate (Feosol) 325 mg PO DAILY [facility] Last Admin: 03/04/19 10:01 Dose: 325 mg Sodium Chloride (Sodium Chloride 0.9%) 1,000 mls @ 75 mls/hr IV .[id number] [facility] Stop: 03/04/19 18:58 Last Admin: 03/04/19 10:04 Dose: 75 mls/hr Isosorbide Mononitrate (Imdur Er) 30 mg PO DAILY [facility] Last Admin: 03/04/19 10:02 Dose: 30 mg Paroxetine HCl (Paxil) 20 mg PO QOTHERDAY [facility] Last Admin: 03/03/19 09:02 Dose: 20 mg Sodium Bicarbonate (Sodium Bicarbonate Tab) 650 mg PO Q8 [facility] Last Admin: 03/04/19 10:02 Dose: 650 mg - Labs Labs: 03/04/19 04:20 03/04/19 04:20 Assessment and Plan (1) ABI (acute kidney injury) Status: Acute (2) Hyperkalemia Status: Acute
--- NOTE | 2019-03-04 16:18 | CP.PCM.DIS ---
Provider - Provider Date of Admission: 02/27/19 15:13 Attending physician: Cristopher Jennings MD Primary care physician: Cristopher Jennings MD Consults: 02/26/19 09:55 Nephrology Consult Stat Comment: Consulting Provider: Laz Petersen Consulting Physician: Laz Petersen Reason for Consult: kidney failure 03/02/19 08:00 Urology Consult Routine Comment: Consulting Provider: Alice Kruger Consulting Physician: Aliec Kruger Reason for Consult: large right renal pole cyst 03/03/19 11:42 Hematology Oncology Consult Routine Comment: Consulting Provider: Trevor Cooper Consulting Physician: Trevor Cooper Reason for Consult: anemia with high protein, high calcium Time Spent in preparation of Discharge (in minutes): 30 Diagnosis - Discharge Diagnosis (1) ABI (acute kidney injury) Status: Acute (2) Hyperkalemia Status: Acute Hospital Course - Lab Results Lab Results: Most Recent Lab Values WBC 6.6 K/uL (4.8-10.8) 03/04/19 04:20 RBC 2.47 Mil/uL (3.80-5.20) L 03/04/19 04:20 Hgb 8.2 g/dL (12.0-16.0) L 03/04/19 04:20 Hct 24.4 % (34.0-47.0) L 03/04/19 04:20 MCV 98.9 fl (81.0-99.0) 03/04/19 04:20 MCH 33.3 pg (27.0-31.0) H 03/04/19 04:20 MCHC 33.7 g/dL (33.0-37.0) 03/04/19 04:20 RDW 17.7 % (11.5-14.5) H 03/04/19 04:20 Plt Count 136 K/uL (130-400) 03/04/19 04:20 MPV 8.0 fl (7.2-11.7) 03/04/19 04:20 Neut % (Auto) 51.3 % (50.0-75.0) 03/04/19 04:20 Lymph % (Auto) 31.2 % (20.0-40.0) 03/04/19 04:20 [place] % (Auto) 9.6 % (0.0-10.0) 03/04/19 04:20 Eos % (Auto) 7.1 % (0.0-4.0) H 03/04/19 04:20 Baso % (Auto) 0.8 % (0.0-2.0) 03/04/19 04:20 Neut # (Auto) 3.4 K/uL (1.8-7.0) 03/04/19 04:20 Lymph # (Auto) 2.1 K/uL (1.0-4.3) 03/04/19 04:20 [place] # (Auto) 0.6 K/uL (0.0-0.8) 03/04/19 04:20 Eos # (Auto) 0.5 K/uL (0.0-0.7) 03/04/19 04:20 Baso # (Auto) 0.0 K/uL (0.0-0.2) 03/04/19 04:20 Neutrophils % (Manual) 57 % (42-75) 03/01/19 05:16 Band Neutrophils % 2 % (0-2) 03/01/19 05:16 Lymphocytes % (Manual) 16 % (20-50) L 03/01/19 05:16 Monocytes % (Manual) 15 % (0-10) H 03/01/19 05:16 Eosinophils % (Manual) 9 % (0-7) H 03/01/19 05:16 Basophils % (Manual) 1 % (0-2) 03/01/19 05:16 Platelet Estimate Normal (NORMAL) 03/01/19 05:16 Hypochromasia (manual) Moderate 03/01/19 05:16 Anisocytosis (manual) Slight 03/01/19 05:16 Tear Drop Cells Slight 03/01/19 05:16 Ovalocytes Slight 03/01/19 05:16 ESR > 120 mm/hr (0-30) H 03/03/19 12:30 pCO2 30 mm/Hg (35-45) L 02/26/19 06:17 pO2 75 mm/Hg (80-100) L 02/26/19 06:17 HCO3 17.6 mmol/L (21-28) L 02/26/19 06:17 ABG pH 7.32 (7.35-7.45) L 02/26/19 06:17 ABG Total CO2 16.4 mmol/L (22-28) L 02/26/19 06:17 ABG O2 Saturation 99.8 % (95-98) H 02/26/19 06:17 ABG Base Excess -9.3 mmol/L (-2.0-3.0) L 02/26/19 06:17 Augusto Test Yes 02/26/19 06:17 ABG Potassium 5.3 mmol/L (3.6-5.2) H 02/26/19 06:17 A-a O2 Difference 87.0 mm/Hg 02/26/19 06:17 Sodium 136.0 mmol/L (132-148) 02/26/19 06:17 Chloride 108.0 mmol/L (98-107) H 02/26/19 06:17 Glucose 89 mg/dL (65-105) 02/26/19 06:17 Lactate 1.0 mmol/L (0.7-2.1) 02/26/19 06:17 Vent Mode 2lnc 02/26/19 06:17 FiO2 28.0 % 02/26/19 06:17 Sodium 139 mmol/l (132-148) 03/04/19 04:20 Potassium 4.5 MMOL/L (3.6-5.0) 03/04/19 04:20 Chloride 114 mmol/L (98-107) H 03/04/19 04:20 Carbon Dioxide 14 mmol/L (22-30) L 03/04/19 04:20 Anion Gap 16 (10-20) 03/04/19 04:20 BUN 44 mg/dl (7-17) H 03/04/19 04:20 Creatinine 1.8 mg/dl (0.7-1.2) H 03/04/19 04:20 Est GFR ( Amer) 33 03/04/19 04:20 Est GFR (Non-Af Amer) 27 03/04/19 04:20 POC Glucose (mg/dL) 483 mg/dL (65-110) H* 02/26/19 04:08 Random Glucose 77 mg/dL (65-105) 03/04/19 04:20 Hemoglobin A1c 5.9 % (4.2-6.5) 02/27/19 09:04 Calcium 9.9 mg/dL (8.4-10.2) 03/04/19 04:20 Phosphorus 4.8 mg/dl (2.5-4.5) H 03/04/19 04:20 Magnesium 1.7 MG/DL (1.6-2.3) 03/04/19 04:20 Iron 56 ug/dL (37-170) 03/02/19 08:50 TIBC 211 ug/dL (250-450) L 03/02/19 08:50 % Saturation 27 % (20-55) 03/02/19 08:50 Transferrin 130.08 mg/dL (206-381) L 03/02/19 05:00 Ferritin 338.0 ng/Ml (11.1-264.0) H 03/02/19 05:00 Total Bilirubin 0.3 mg/dl (0.2-1.3) 03/04/19 04:20 AST 32 U/L (14-36) 03/04/19 04:20 ALT 9 U/L (9-52) D 03/04/19 04:20 Alkaline Phosphatase 47 U/L (38-126) 03/04/19 04:20 Total Protein 9.4 G/DL (6.3-8.2) H 03/04/19 04:20 Total Protein (PEP) 9.6 g/dL (6.1-8.1) H 03/03/19 15:22 Albumin 3.2 g/dL (3.5-5.0) L 03/04/19 04:20 Globulin 6.2 gm/dL (2.2-3.9) H 03/04/19 04:20 Albumin/Globulin Ratio 0.5 (1.0-2.1) L 03/04/19 04:20 Vitamin B12 372 pg/mL (239-931) 03/02/19 05:00 25-OH Vitamin D Total 44.0 NG/ML (30.0-100.0) 03/02/19 05:00 Folate 10.2 ng/mL 03/02/19 05:00 TSH 3rd Generation 2.41 mIU/ML (0.46-4.68) 02/27/19 09:04 PTH Intact Whole Molec 34 pg/mL (14-64) 02/27/19 11:10 Arterial Blood Potassium 5.3 mmol/L (3.6-5.2) H 02/26/19 06:17 Urine Color Yellow (YELLOW) 02/28/19 17:14 Urine Clarity Cloudy (Clear) 02/28/19 17:14 Urine pH 5.0 (5.0-8.0) 02/28/19 17:14 Ur Specific [place] 1.008 (1.003-1.030) 02/28/19 17:14 Urine Protein Negative mg/dL (NEGATIVE) 02/28/19 17:14 Urine Glucose (UA) Neg mg/dL (NEGATIVE) 02/28/19 17:14 Urine Ketones Negative mg/dL (NEGATIVE) 02/28/19 17:14 Urine Blood Negative (NEGATIVE) 02/28/19 17:14 Urine Nitrate Negative (NEGATIVE) 02/28/19 17:14 Urine Bilirubin Negative (NEGATIVE) 02/28/19 17:14 Urine Urobilinogen 0.2-1.0 mg/dL (0.2-1.0) 02/28/19 17:14 Ur Leukocyte Esterase Neg Jesús/uL (Negative) 02/28/19 17:14 Urine RBC (Auto) < 1 /hpf (0-3) 02/28/19 17:14 Urine Microscopic WBC 1 /hpf (0-5) 02/28/19 17:14 Ur Squamous Epith Cells < 1 /hpf (0-5) 02/28/19 17:14 Urine Bacteria Rare (<OCC) 02/27/19 13:20 Urine Eosinophils Negative (NEGATIVE) 02/27/19 13:20 Urine Osmolality 291 mosm/kg (300-1000) L 02/27/19 13:20 Ur Random Creatinine 48.1 mg/dL 02/28/19 17:14 U Random Total Protein 47 mg/L 02/28/19 17:14 Ur Random Sodium 32 mmol/L 02/27/19 13:20 Serum Immunofixation Detected (Not Detected) H 03/01/19 20:30 - Hospital Course Hospital Course: Pt was admitted for ABI and abnormal labs. She was treated with hanane hydration, where renal improvement was noted. Nephrology was consulted. During workup, anemia, high protein, and high calcium was noted. Hem/Onc was consulted due to suspicion of multiple myeloma. A bone osseous survey scan, as well as a bone marrow biopsy were done. The pt will follow up with Dr. Cooper outpatient for additional testing. Discharge Exam - Head Exam Head Exam: ATRAUMATIC, NORMAL INSPECTION, NORMOCEPHALIC - Eye Exam Eye Exam: EOMI, Normal appearance, PERRL Pupil Exam: NORMAL ACCOMODATION - ENT Exam ENT Exam: Mucous Membranes Moist - Respiratory Exam Respiratory Exam: Clear to PA & Lateral, NORMAL BREATHING PATTERN - Cardiovascular Exam Cardiovascular Exam: REGULAR RHYTHM, +S1, +S2 - GI/Abdominal Exam GI & Abdominal Exam: Normal Bowel Sounds - Extremities Exam Extremities exam: full ROM - Back Exam Back exam: NORMAL INSPECTION - Neurological Exam Neurological exam: Alert, CN II-XII Intact, Oriented x3 - Psychiatric Exam Psychiatric exam: Normal Affect, Normal Mood - Skin Skin Exam: Dry, Normal Color, Warm Discharge Plan - Discharge Medications Prescriptions: Sodium Bicarbonate Tab 650 mg PO Q8 #9 tab - Follow Up Plan Condition: FAIR Disposition: HOME/ ROUTINE Instructions: Hyperkalemia (DC), Kidney Failure (DC) Additional Instructions: follow up with in 1 week for bone biopsy results. follow up with Dr. Jennings 1 week follow up with on Saturday01/09/19 Referrals: Trevor Cooper MD [Staff Provider] - Laz Petersen MD [Staff Provider] - Cristopher Jennings MD [Primary Care Provider] - Charles Graves APN [Nurse Practitioner] - Vishnu Lui MD [Staff Provider] -
[2019-03-04 17:30] VITALS: BP 154/77; PULSE 57; TEMP 97.9
[2019-03-05 05:26] LABS: ALBUMIN (PEP) 2.9 g/dL (3.8-4.8); ALPHA-1-GLOBULIN (PEP) 0.3 g/dL (0.2-0.3)
--- NOTE | 2019-03-06 14:25 | PQF ---
PROVIDER RESPONSE TEXT: Provider was unable to determine a response for this query. REVIEWER QUERY TEXT: Kidney Disease, Chronic CKD Stage Chronic Kidney Disease (CKD) is documented in the H and P. Please specify the disease stage (include s probable or suspected) Such as: -- Chronic kidney disease Stage 1 -- Chronic kidney disease Stage 2 -- Chronic kidney disease Stage 3 -- Chronic kidney disease Stage 4 -- Chronic kidney disease Stage 5 -- Chronic kidney disease Stage 5, requiring dialysis -- End Stage Renal Disease -- Other, please specify Creatinine:3.3->3.0->2.9->2.8->2.4->1.9 Est GFR ( Amer):16->18->19->20->23->31->31->33 Est GFR (Non-Af Amer):13->15->15->16->19->25->25->27 Stages are defined by the [employer] as follows: CKD Stage I GFR >= 90 ml / min per 1.73 m2 and persistent albuminuria CKD Stage 2 GFR between 60 and 89 with persistent albuminuria CKD Stage 3 GFR between 30 and 59 CKD Stage 4 GFR between 15 and 29 CKD Stage 5 GFR between <15 or End Stage Renal Disease The patient's Clinical Indicators include: -- Query created by: Laure Lugo on 03/04/2019 3:09 PM Electronically signed by: Cristopher Jennings 03/06/2019 2:22 PM
--- NOTE | 2019-03-09 13:54 | PQF ---
PROVIDER RESPONSE TEXT: Acute Kidney Injury Super Impose Stage 3 REVIEWER QUERY TEXT: Acute Kidney Failure is documented in the Medical Record. Please specify the associated condition (including probable or suspected) Such as: -- Acute Tubular Necrosis -- Cortical Necrosis -- Papillary or Medullary Necrosis -- Traumatic Anuria -- None are likely contributors -- Other, please specify 03/02 Renal note includes: UA w/ dipstick neg protein but 1 gram by upcr - suspicious for paraprotein disease w/ in particular w/ elevated total protein, hypercalcemia, and persistent acidosis suspicious for tubular injury will check SPEP w/ IF, Urine immuno and serum free light chain assay continue oral bicarb --- Query created by: Laure Lugo on 03/04/2019 03:01 PM EDVIN
== END 2019-03-04 19:40 | disposition home or self-care (01) | DRG 683 ==
LOC: H.ER 20:16 → H.ERHOLD 02-26 02:39 → H.TEL 02-26 16:29 → OBSVTOIN 02-27 15:13 → H.TEL 03-01 18:27
PROVIDERS: ADMIT Family Medicine; ATTEND Family Medicine
PROC: 07DR3ZX Extraction of Iliac Bone Marrow, Percutaneous Approach, Diagnostic (ICD-10-PCS; principal; 2019-03-04)
DX: N17.9 Acute kidney failure, unspecified (principal); E87.2 Acidosis; N39.0 Urinary tract infection, site not specified; C90.00 Multiple myeloma not having achieved remission; E87.5 Hyperkalemia; D63.1 Anemia in chronic kidney disease; I12.9 Hypertensive chronic kidney disease with stage 1 through stage 4 chronic kidney disease, or unspecified chronic kidney disease; N18.3 Chronic kidney disease, stage 3 (moderate); D47.2 Monoclonal gammopathy; E83.52 Hypercalcemia; E16.2 Hypoglycemia, unspecified; I34.1 Nonrheumatic mitral (valve) prolapse; I25.10 Atherosclerotic heart disease of native coronary artery without angina pectoris; K21.9 Gastro-esophageal reflux disease without esophagitis; K58.9 Irritable bowel syndrome, unspecified; K57.90 Diverticulosis of intestine, part unspecified, without perforation or abscess without bleeding; N28.1 Cyst of kidney, acquired; Z85.3 Personal history of malignant neoplasm of breast; Z95.5 Presence of coronary angioplasty implant and graft; Z88.2 Allergy status to sulfonamides; Z88.6 Allergy status to analgesic agent; Z91.040 Latex allergy status